=== PATIENT | female | born 1955 | race Caucasian/White ===

== ENCOUNTER 2020-06-02 12:23 | Outpatient (REF) | payer MEDICARE, SELFPAY ==
--- NOTE | 2020-06-02 | MM_ITS ---
EXAMINATION: MM SCREENING DIGITAL BREAST TOMOSYNTHESIS, BILATERAL CLINICAL INFORMATION: Screening. Asymptomatic. The lifetime risk of breast cancer based on the Tyrer-Cuzick Model is 11%. COMPARISON: Mammography: 12/07/2018, 11/23/2017, 11/10/2016, 11/01/2015 TECHNIQUE: Digital breast tomosynthesis is performed in both the craniocaudal and mediolateral oblique views along with computer-aided detection (CAD). Synthesized 2D images are generated from the tomosynthesis. FINDINGS: There are scattered areas of fibroglandular density (ACR BI-RADS breast composition Category b). There are no significant masses, abnormal calcifications, or other abnormalities. The axilla and skin contours are unremarkable. MM/MM tomosynthesis screening BI IMPRESSION: No mammographic evidence of malignancy. ASSESSMENT: BI-RADS 1: Negative RECOMMENDATION: Routine annual mammography screening. This patient's information was entered into a reminder system with a target due date for their next mammogram.
== END 2020-06-02 12:24 | disposition home or self-care (01) ==
LOC: HO.MAMMO 12:23
PROVIDERS: Visit Provider Internal Medicine
DX: Z12.31 Encounter for screening mammogram for malignant neoplasm of breast (principal)
CPT/HCPCS: 77063; 77067

== ENCOUNTER 2020-07-08 06:37 | Outpatient (REF) | payer MEDICARE, SELFPAY ==
[2020-07-08 11:41] LABS: Hematocrit 41.2 % (37-47); Hemoglobin 13.1 g/dl (12.0-16.0); Mean Corpuscular HGB Conc 31.8 g/dl (31.0-35.0); Mean Corpuscular Hemoglobin 30.8 pg (27.0-33.0); Mean Corpuscular Volume 96.9 fL (80-98); Mean Platelet Volume 12.6 fL (9.4-12.3); Platelet Count 202 X10*3/uL (160-400); Red Blood Count 4.25 X10*6/uL (4.20-5.50); Red Cell Distribution Width 11.9 % (11.0-16.0); White Blood Count 4.6 X10*3/uL (4.8-10.8)
[2020-07-08 12:15] LABS: Free T4 (Free Thyroxine) 1.03 ng/dL (0.71-1.85); Thyroid Stimulating Hormone 0.86 uIU/mL (0.32-4.0); Vitamin D 25-OH Total 59.3 ng/mL (>30)
[2020-07-08 12:17] LABS: Alanine Aminotransferase 11 U/L (0-31); Anion Gap 12 (12-20); Aspartate Amino Transferase 17 U/L (5-31); Blood Urea Nitrogen 15 mg/dL (9-16); Calcium 8.5 mg/dL (8.4-10.2); Carbon Dioxide 28 mmol/L (22-29); Chloride 106 mmol/L (96-108); Cholesterol 177 mg/dL; Estimated Glomerular Filt Rate > 60; Glucose Fasting 78 mg/dL (60-99); HDL Cholesterol 70 mg/dL; LDL Cholesterol Calculated 98 mg/dl; Potassium 3.7 mmol/L (3.3-5.1); Sodium 142 mmol/L (135-145); Triglycerides 49 mg/dL
== END 2020-07-08 06:38 | disposition home or self-care (01) ==
LOC: HO.HMGCLDS 06:37
PROVIDERS: PCP Internal Medicine; Visit Provider Internal Medicine
DX: E78.5 Hyperlipidemia, unspecified (principal); E03.9 Hypothyroidism, unspecified; J30.9 Allergic rhinitis, unspecified; M81.0 Age-related osteoporosis without current pathological fracture; Z78.0 Asymptomatic menopausal state
CPT/HCPCS: 36415; 80048; 80061; 82306; 84439; 84443; 84450; 84460; 85027

== ENCOUNTER 2020-07-22 13:35 | Outpatient (REF) | payer MEDICARE, SELFPAY ==
--- NOTE | ~2020-07-22 | US_ITS ---
EXAMINATION: US THYROID CLINICAL INFORMATION: Hypothyroidism. COMPARISON: None TECHNIQUE: Linear transducer grayscale and color Doppler examination with attention to the region of the thyroid. FINDINGS: SIZE: Measurements of the thyroid lobes and nodules are given in sagittal, anteroposterior and transverse dimensions respectively. Right Thyroid Lobe: 3.3 x 1.1 x 0.8 cm, volume 1.5 mL. Parenchyma: The gland echotexture is homogeneous. Thyroid vascularity is normal. Left Thyroid Lobe: 3.1 x 1.1 x 1.0 cm, volume 1.8 mL. Parenchyma: The gland echotexture is homogeneous. Thyroid vascularity is normal. Isthmus: 0.1 cm in maximum AP dimension. Estimated total number of nodules greater than or equal to 1 cm: 0. No focal thyroid nodule is seen. NODES: No lymphadenopathy is seen in the tissue surrounding the thyroid gland. US/US thyroid IMPRESSION: Small thyroid gland. No nodule or adenopathy is seen.
== END 2020-07-22 13:36 | disposition home or self-care (01) ==
LOC: HO.HMGCX 13:35
PROVIDERS: Visit Provider Internal Medicine
DX: E03.9 Hypothyroidism, unspecified (principal)
CPT/HCPCS: 76536

== ENCOUNTER 2021-01-29 06:22 | Outpatient (REF) | payer MEDICARE, SELFPAY ==
[2021-01-29 12:04] LABS: Alanine Aminotransferase 13 U/L (0-31); Anion Gap 10 (12-20); Aspartate Amino Transferase 17 U/L (5-31); Blood Urea Nitrogen 17 mg/dL (9-16); Calcium 8.7 mg/dL (8.4-10.2); Carbon Dioxide 28 mmol/L (22-29); Chloride 108 mmol/L (96-108); Cholesterol 189 mg/dL; Estimated Glomerular Filt Rate > 60; Glucose Fasting 84 mg/dL (60-99); HDL Cholesterol 75 mg/dL; LDL Cholesterol Calculated 108 mg/dl; Potassium 4.5 mmol/L (3.3-5.1); Sodium 141 mmol/L (135-145); Triglycerides 33 mg/dL
[2021-01-29 12:15] LABS: Free T4 (Free Thyroxine) 1.05 ng/dL (0.71-1.85); Thyroid Stimulating Hormone 0.85 uIU/mL (0.32-4.0); Vitamin D 25-OH Total 44.6 ng/mL (>30)
== END 2021-01-29 06:23 | disposition home or self-care (01) ==
LOC: HO.HMGCLDS 06:22
PROVIDERS: PCP Internal Medicine; Visit Provider Internal Medicine
DX: E03.9 Hypothyroidism, unspecified (principal); E78.5 Hyperlipidemia, unspecified; M81.0 Age-related osteoporosis without current pathological fracture; R73.01 Impaired fasting glucose; I10 Essential (primary) hypertension; Z78.0 Asymptomatic menopausal state
CPT/HCPCS: 36415; 80048; 80061; 82306; 84439; 84443; 84450; 84460

== ENCOUNTER 2021-04-21 07:55 | Outpatient (REF) | payer MEDICARE, SELFPAY ==
--- NOTE | ~2021-04-21 | MM_ITS ---
EXAMINATION: BONE DENSITOMETRY CLINICAL INDICATION: Osteoporosis. COMPARISON: Previous BD dated 04/20/2019 and baseline BD dated 11/28/2006. TECHNIQUE: Using a [employer] DXA System (software version: 13.1) manufactured by [employer], dual-energy x-ray absorptiometry was performed of the lumbar spine and left hip. The images are of good technical quality. Summary results are attached. FINDINGS: AP SPINE L1-L4: Current: BMD 1.061 g/cm2, Z-score 0.9, T-score -1.0, normal, 6.0% increase from previous, 15.1% decrease from baseline (<5% change is not significant). Prior: BMD 1.001 g/cm2. Baseline: BMD 1.249 g/cm2. LEFT FEMUR, NECK: Current: BMD 0.810 g/cm2, Z-score 0.1, T-score -1.6, osteopenia. Prior: BMD 0.678 g/cm2. Baseline: BMD 0.971 g/cm2. LEFT FEMUR, TOTAL: Current: BMD 0.860 g/cm2, Z-score 0.4, T-score -1.2, osteopenia, 18.1% increase from previous, 15.6% decrease from baseline (<5% change is not significant). Prior: BMD 0.728 g/cm2. Baseline: BMD 1.019 g/cm2. IDENTIFIED RISK FACTORS: Menopause, osteoporosis, rheumatoid arthritis. HISTORY OF FRACTURE: None listed. MEDICATIONS: Calcium, vitamin D, bisphosphonate. MM/XR DEXA axial skeleton IMPRESSION: 1. DIAGNOSIS: Osteopenia based on the lowest T-score value of -1.6 in the femoral neck applying World Health Organization criteria. 2. 10-YEAR FRACTURE RISK PREDICTION, FRAX: Major osteoporotic fracture (clinical spine, forearm, hip or shoulder) 13.1%. Hip fracture 2.0%. 3. Treatment Recommendations: NOF guidelines recommend consideration for treatment in postmenopausal women and men age 50 and older presenting with the following: -A hip or vertebral (clinical or morphometric) fracture. -T-score less than or equal to -2.5 at the femoral neck or spine after appropriate evaluation to exclude secondary causes. -Low bone mass at the hip or spine and a 10-year fracture probability by FRAX of greater than or equal to 3% for hip fracture or greater than or equal to 20% for major osteoporotic fracture based on the [place] adapted WHO algorithm. 4. Other Recommendations: All treatment decisions require clinical judgment and consideration of individual patient factors, including patient preferences, comorbidities, previous drug use, risk factors not captured in the FRAX model (e.g. frailty, falls, vitamin D deficiency, increased bone turnover, interval significant decline in bone density) and possible under or overestimation of fracture risk by FRAX. Additional medical evaluation for secondary cause of low bone mineral density may be appropriate. FUTURE SCAN RECOMMENDATION: People with diagnosed cases of osteoporosis or at high risk for fracture should have regular bone mineral density tests. For patients eligible for Medicare, routine testing is allowed once every 2 years. The testing frequency can be increased to one year for patients who have rapidly progressing disease, those who are receiving or discontinuing medical therapy to restore bone mass, or have additional risk factors.
== END 2021-04-21 07:56 | disposition home or self-care (01) ==
LOC: HO.MAMMO 07:55
PROVIDERS: Visit Provider Internal Medicine
DX: Z13.820 Encounter for screening for osteoporosis (principal); M81.0 Age-related osteoporosis without current pathological fracture; M85.80 Other specified disorders of bone density and structure, unspecified site; Z78.0 Asymptomatic menopausal state; Z79.899 Other long term (current) drug therapy
CPT/HCPCS: 77080

== ENCOUNTER 2021-05-04 09:49 | Outpatient (REF) | payer MEDICARE, SELFPAY | END 2021-05-04 09:50 | disposition home or self-care (01) | LOC: HO.HMGCLDS 09:49 | PROVIDERS: Visit Provider Internal Medicine | DX: Z20.822 Contact with and (suspected) exposure to COVID-19 (principal) | CPT/HCPCS: C9803; U0003; U0005 ==

== ENCOUNTER 2021-05-26 13:44 | Outpatient (REF) | payer MEDICARE, SELFPAY ==
--- NOTE | ~2021-05-26 | MM_ITS ---
EXAMINATION: MM SCREENING DIGITAL BREAST TOMOSYNTHESIS, BILATERAL CLINICAL INFORMATION: Screening. Asymptomatic. The lifetime risk of breast cancer based on the Tyrer-Cuzick Model is 9%. COMPARISON: Mammography: 06/02/2020, 12/07/2018, 11/23/2017 TECHNIQUE: Digital breast tomosynthesis is performed in both the craniocaudal and mediolateral oblique views along with computer-aided detection (CAD). Synthesized 2D images are generated from the tomosynthesis. FINDINGS: There are scattered areas of fibroglandular density (ACR BI-RADS breast composition Category b). There are no significant masses, abnormal calcifications, or other abnormalities. Parenchymal pattern is similar to prior studies. There is no developing density or architectural abnormality. The axilla and skin contours are unremarkable. No significant changes. MM/MM tomosynthesis screening BI IMPRESSION: No mammographic evidence of malignancy. ASSESSMENT: BI-RADS 1: Negative RECOMMENDATION: Routine annual mammography screening. This patient's information was entered into a reminder system with a target due date for their next mammogram.
== END 2021-05-26 13:45 | disposition home or self-care (01) ==
LOC: HO.MAMMO 13:44
PROVIDERS: Visit Provider Internal Medicine
DX: Z12.31 Encounter for screening mammogram for malignant neoplasm of breast (principal)
CPT/HCPCS: 77063; 77067

== ENCOUNTER 2021-07-15 06:25 | Outpatient (REF) | payer MEDICARE, SELFPAY ==
[2021-07-15 11:55] LABS: Alanine Aminotransferase 23 U/L (0-31); Anion Gap 11 (12-20); Aspartate Amino Transferase 23 U/L (5-31); Blood Urea Nitrogen 13 mg/dL (9-16); Carbon Dioxide 30 mmol/L (22-29); Chloride 104 mmol/L (96-108); Cholesterol 197 mg/dL; Estimated Glomerular Filt Rate > 60; Glucose Fasting 83 mg/dL (60-99); HDL Cholesterol 80 mg/dL; LDL Cholesterol Calculated 108 mg/dl; Potassium 4.7 mmol/L (3.3-5.1); Sodium 140 mmol/L (135-145); Triglycerides 46 mg/dL
[2021-07-15 12:16] LABS: Free T4 (Free Thyroxine) 1.13 ng/dL (0.71-1.85); Thyroid Stimulating Hormone 1.19 uIU/mL (0.32-4.0); Vitamin D 25-OH Total 56.8 ng/mL (>30)
== END 2021-07-15 06:26 | disposition home or self-care (01) ==
LOC: HO.HMGCLDS 06:25
PROVIDERS: Visit Provider Internal Medicine
DX: E03.9 Hypothyroidism, unspecified (principal); E78.5 Hyperlipidemia, unspecified; I10 Essential (primary) hypertension; M81.0 Age-related osteoporosis without current pathological fracture; R73.01 Impaired fasting glucose; Z78.0 Asymptomatic menopausal state
CPT/HCPCS: 36415; 80048; 80061; 82306; 84439; 84443; 84450; 84460

== ENCOUNTER 2022-03-04 06:27 | Outpatient (REF) | payer MEDICARE, SELFPAY ==
[2022-03-04 11:49] LABS: Alanine Aminotransferase 23 U/L (0-31); Aspartate Amino Transferase 26 U/L (5-31); Cholesterol 200 mg/dL; HDL Cholesterol 82 mg/dL; LDL Cholesterol Calculated 112 mg/dl; Thyroid Stimulating Hormone 0.88 uIU/mL (0.32-4.0); Triglycerides 34 mg/dL; Vitamin D 25-OH Total 44.4 ng/mL (>30)
== END 2022-03-04 06:28 | disposition home or self-care (01) ==
LOC: HO.HMGCLDS 06:27
PROVIDERS: PCP Internal Medicine; Visit Provider Internal Medicine
DX: E03.9 Hypothyroidism, unspecified (principal); E78.5 Hyperlipidemia, unspecified; M81.0 Age-related osteoporosis without current pathological fracture; N95.9 Unspecified menopausal and perimenopausal disorder; Z78.0 Asymptomatic menopausal state
CPT/HCPCS: 36415; 80061; 82306; 84439; 84443; 84450; 84460

== ENCOUNTER 2022-03-29 14:55 | Outpatient (REF) | payer MEDICARE, SELFPAY ==
--- NOTE | ~2022-03-29 | US_ITS ---
EXAMINATION: US EXTRACRANIAL CAROTID DUPLEX, BILATERAL CLINICAL INFORMATION: Syncope COMPARISON: None TECHNIQUE: Real-time ultrasound and Doppler techniques (integrating B-mode 2-D vascular images, Doppler spectral analysis and color-flow Doppler imaging) were utilized to interrogate the extracranial carotid arteries, the vertebral arteries and proximal subclavian arteries bilaterally. The degree of stenosis is determined by criteria similar to NASCET. FINDINGS: Right Side: 1. There is soft atherosclerotic plaque seen in the bifurcation/proximal ICA region. 2. The common carotid artery PSV proximally is 89.6 cm/s and distally 88.8 cm/s. 3. The proximal internal carotid artery velocities are 81 1 cm/s systolic and 27.6 cm/s diastolic. 4. The proximal external carotid artery PSV is 73.9 cm/s. 5. The vertebral artery shows antegrade flow. 6. The subclavian artery waveforms are normal. Left Side: 1. There is soft atherosclerotic plaque seen in the bifurcation/proximal ICA region. 2. The common carotid artery PSV proximally is 96.2 cm/s and distally 84.4 cm/s. 3. The proximal internal carotid artery velocities are 95 cm/s systolic and 27 cm/s diastolic. 4. The proximal external carotid artery PSV is 87.3 cm/s. 5. The vertebral artery shows antegrade flow. 6. The subclavian artery waveforms are normal. US/US carotid duplex BI IMPRESSION: 1. RIGHT: No hemodynamically significant stenosis. 1. LEFT: No hemodynamically significant stenosis. 2. Normal antegrade flow seen in both vertebral arteries.
== END 2022-03-29 14:56 | disposition home or self-care (01) ==
LOC: HO.HMGCX 14:55
PROVIDERS: PCP Internal Medicine; Visit Provider Internal Medicine
DX: R55 Syncope and collapse (principal)
CPT/HCPCS: 93880

== ENCOUNTER → 2022-05-12 13:09 | Outpatient (BNVA) | payer MEDICARE, SELFPAY | PROVIDERS: PCP Internal Medicine; Referring Provider Internal Medicine; Visit Provider Internal Medicine | DX: R55 Syncope and collapse (principal); I95.9 Hypotension, unspecified | CPT/HCPCS: 99202 ==

== ENCOUNTER → 2022-05-19 08:58 | Outpatient (REF) | payer MEDICARE, SELFPAY ==
--- NOTE | 2022-05-19 09:01 | CA_ITS ---
Transthoracic Echocardiogram Patient (Last, First, Middle): Candy Turpin M Gender: Female Date of : 1955 Age: 67 Procedure Date: 05/19/2022 Procedure Type: Transthoracic Echocardiogram Location: OP Height: 152.4 cm Weight: 57.61 kg BSA: 1.54 m2 Heart Rate: bpm BP: 122 / 60 mmHg Personal Care Worker: Referring MD: Tom Griffin MD Hose Stripper: Aguilar Sue MD Symptoms: I95.9 - Hypotension, unspecified Study Quality: Adequate ECG Rhythm: Sinus Conclusions: - Normal study Findings Left Ventricle Normal left ventricular size, thickness, and systolic function. The visually estimated ejection fraction is between 60-65%. Spectral Doppler is indicative of a normal filling pattern. Right Ventricle Normal right ventricular cavity size and systolic function. Atria Both atria are normal in size. There is lipomatous hypertrophy of the interatrial septum. There is no evidence of interatrial shunt. Aortic Valve Normal aortic valve structure and function. There is no aortic valve stenosis. There is no aortic valve regurgitation. Mitral Valve Normal mitral valve structure and function. There is trace mitral valve regurgitation. There is no mitral valve stenosis. Pulmonic Valve The pulmonic valve is likely normal. There is trace to mild pulmonic valve regurgitation. Tricuspid Valve Normal tricuspid valve structure. There is trace tricuspid valve regurgitation. The right ventricular systolic pressure is normal. The right ventricular systolic pressure is 22 mmHg. Normal right atrial pressure. There is no evidence of pulmonary hypertension. Great Vessels All visible segments of the aorta are normal in size. The pulmonary artery was not well visualized. Venous The inferior vena cava is normal in size and collapses greater than 50% with inspiration. Pericardium/Pleural There is no evidence of pericardial effusion. Prior Study Comparison No prior study available for comparison. Measurements 2D Linear Measurements IVSd: 0.73 0.6-0.9/0.6-1.0 cm LVIDd: 3.71 3.9-5.3/4.2-5.9 cm LVIDd Index: 2.41 2.4-3.2/2.2-3.1 cm/m2 LVIDs: 2.33 2.0-3.6 cm LVPWd: 0.77 0.7-1.1 cm Ao Root: 2.90 2.1-3.5 cm LA Diam: 2.10 2.7-3.8/3.0-4.0 cm LAIDs Index: 1.36 1.5-2.3 cm/m2 LV Mass: 93.97 67-162/88-224 g LV Mass Index: 61.02 43-95/49-115 g/m2 LVOT Diam: 1.90 3.0+(-)1.3 cm 2D Systolic Function EF 4C: 60.90 >55% EF 2C: 64.80 >55% EF BiP: 63.90 >55% Mitral Valve MV Pk E: 1.01 MV PK A: 0.87 MV Decel Time: 183.00 E/A: 1.20 E'Lateral: 8.16 E'Medial: 7.72 E/E' Med: 13.10 E/E' Lat: 12.40 PHT: 54.00 MVA PHT: 4.07 Decel [place]: 5.54 Aortic Valve AoV Pk Vincent: 1.43 AoV Mn Vincent: 0.87 AoV VTI: 0.36 AoV Pk Grad: 8.00 Aov Mn Grad: 4.00 PHILOMENA Cont.VTI: 1.37 LVOT LVOT Pk Vincent: 0.80 LVOT Mn Vincent: 0.46 LVOT VTI: 0.17 LVOT Pk Grad: 3.00 LVOT Mn Grad: 1.00 LVOT Diam: 1.90 LVOT Area: 2.84 Diastolic Function MV Pk E: 1.01 MV Pk A: 0.87 E/A: 1.20 E'Medial: 7.72 E/E' Med: 13.10 E' Laterial: 8.16 E/E' Lat: 12.40 Right Ventricle TAPSE (mm): 26.00 TVS' Vincent: 10.00 Tricuspid Valve TR Pk Vincent: 2.20 TR Pk Grad: 19.00 RA Press: 3.00 RVSP: 22.00 Great Vessels Aorta Ao Root-2D: 2.90 2.0-3.7 cm Ao Asc: 2.90 2.1-3.4 cm Pulmonary Valve PV Pk Vincent: 0.93 Peak PV Grad: 3.00 Updated in Other Vendor System with Status of Final Aguilar Sue MD electronically signed on 05/19/2022 2:28:48 PM with status of Final
== END ==
LOC: HO.CARD 08:58
PROVIDERS: PCP Internal Medicine; Visit Provider Internal Medicine
DX: I95.9 Hypotension, unspecified (principal); R55 Syncope and collapse
CPT/HCPCS: 93306

== ENCOUNTER 2022-05-28 07:19 | Outpatient (REF) | payer MEDICARE, SELFPAY ==
--- NOTE | ~2022-05-28 | MM_ITS ---
EXAMINATION: MM SCREENING DIGITAL BREAST TOMOSYNTHESIS, BILATERAL CLINICAL INFORMATION: Screening. Asymptomatic. The lifetime risk of breast cancer based on the Tyrer-Cuzick Model is 9%. COMPARISON: Mammography: 05/26/2021, 06/02/2020, 12/07/2018 TECHNIQUE: Digital breast tomosynthesis is performed in both the craniocaudal and mediolateral oblique views along with computer-aided detection (CAD). Synthesized 2D images are generated from the tomosynthesis. FINDINGS: There are scattered areas of fibroglandular density (ACR BI-RADS breast composition Category b). There are no significant masses, abnormal calcifications, or other abnormalities. Parenchymal pattern is similar to prior studies. There is no developing density or architectural abnormality. The axilla and skin contours are unremarkable. No significant changes. MM/MM tomosynthesis screening BI IMPRESSION: No mammographic evidence of malignancy. ASSESSMENT: BI-RADS 1: Negative RECOMMENDATION: Routine annual mammography screening. This patient's information was entered into a reminder system with a target due date for their next mammogram.
== END 2022-05-28 07:20 | disposition home or self-care (01) ==
LOC: HO.MAMMO 07:19
PROVIDERS: PCP Internal Medicine; Visit Provider Internal Medicine
DX: Z12.31 Encounter for screening mammogram for malignant neoplasm of breast (principal)
CPT/HCPCS: 77063; 77067

== ENCOUNTER 2022-06-09 06:23 | Outpatient (REF) | payer MEDICARE, SELFPAY ==
[2022-06-09 12:38] LABS: Alanine Aminotransferase 27 U/L (0-31); Anion Gap 10 (12-20); Aspartate Amino Transferase 28 U/L (5-31); Blood Urea Nitrogen 15 mg/dL (9-16); Calcium 9.1 mg/dL (8.4-10.2); Carbon Dioxide 31 mmol/L (22-29); Chloride 106 mmol/L (96-108); Cholesterol 207 mg/dL; Estimated Glomerular Filt Rate > 60; Free T4 (Free Thyroxine) 1.17 ng/dL (0.71-1.85); Glucose Fasting 86 mg/dL (60-99); HDL Cholesterol 80 mg/dL; LDL Cholesterol Calculated 120 mg/dl; Potassium 4.3 mmol/L (3.3-5.1); Sodium 143 mmol/L (135-145); Thyroid Stimulating Hormone 1.25 uIU/mL (0.32-4.0); Triglycerides 38 mg/dL; Vitamin D 25-OH Total 47.8 ng/mL (>30)
== END 2022-06-09 06:24 | disposition home or self-care (01) ==
LOC: HO.HMGCLDS 06:23
PROVIDERS: PCP Internal Medicine; Visit Provider Internal Medicine
DX: M81.0 Age-related osteoporosis without current pathological fracture (principal); R73.01 Impaired fasting glucose; E78.5 Hyperlipidemia, unspecified; E03.9 Hypothyroidism, unspecified; Z78.0 Asymptomatic menopausal state
CPT/HCPCS: 36415; 80048; 80061; 82306; 84439; 84443; 84450; 84460

== ENCOUNTER → 2022-09-07 09:40 | Outpatient (BNVA) | payer MEDICARE, SELFPAY | PROVIDERS: PCP Internal Medicine; Visit Provider Internal Medicine | DX: I95.1 Orthostatic hypotension (principal); R42 Dizziness and giddiness; R29.6 Repeated falls | CPT/HCPCS: 99212 ==

== ENCOUNTER 2022-09-30 11:46 | Outpatient (REF) | payer SELFPAY ==
--- NOTE | 2022-09-30 12:34 | MHC.AU.HFU ---
Hearing Instrument Follow-Up- Binaural Date of Visit: 09/30/22 Right Ear: Phonak Virto [id number], SN: [id number], pink Repair Warranty: 04/21/2021 Loss and Damage Warranty: 04/21/2021 Battery Size: 13 Type of Wax Guard: cerustop Dispensed By: [facility] Date of Fittin03/29/2018 Left Ear: Phonak Virto B50-13, SN: [id number], pink Repair Warranty: 04/21/2021 Loss and Damage Warranty: 04/21/2021 Battery Size: 13 Type of Wax Guard: cerustop Dispensed By: [facility] Date of Fittin03/29/2018 Follow-Up Summary: The patient is here for a hearing aid check as she reports her left hearing aid made a pop sound and stopped working approximately 2 weeks ago. She has been using her back up left FS ITE hearing aid with her existing right FS ITE hearing aid. She would like her current pair and her back up left aid checked and cleaned. Otoscopy reveals significant, though non-occluding, cerumen in the left ear canal. Right ear canal is clear. Visual inspection of the hearing aids reveal debris in the wax guards and vent. I changed all wax guards and threaded all vents. Brushed and wiped the microphone ports on all aids. Listening check reveals all aids are amplifying clearly. I recommended cerumen removal. The patient usually goes to Dr. Rubi's office for this so she schedule it there. I also recommend an updated audiogram as her previous is from 2019. She will see her PCP in December and request an order be faxed. The patient reported good sound bilaterally and was happy with today's visit. She paid $50 for the cleaning. Diagnosis Code(s): Primary Diagnosis: H90.A32 Mixed HL, Unilateral, Left Ear, W/Restricted Contralateral Secondary Diagnosis: H90.A21 SNHL, Unilateral Right Ear, W/Restricted Contralateral Hearing Signature: Provider: William Sandhu, [facility]
== END 2022-09-30 11:47 | disposition home or self-care (01) ==
LOC: HO.HAP 11:46
PROVIDERS: Visit Provider Internal Medicine
DX: Z46.1 Encounter for fitting and adjustment of hearing aid (principal); H90.A32 Mixed conductive and sensorineural hearing loss, unilateral, left ear with restricted hearing on the contralateral side; H90.A21 Sensorineural hearing loss, unilateral, right ear, with restricted hearing on the contralateral side
CPT/HCPCS: 92593

== ENCOUNTER 2022-12-08 06:24 | Outpatient (REF) | payer MEDICARE, SELFPAY ==
[2022-12-08 12:16] LABS: Alanine Aminotransferase 17 U/L (0-31); Anion Gap 13 (12-20); Aspartate Amino Transferase 19 U/L (5-31); Blood Urea Nitrogen 13 mg/dL (9-16); Calcium 9.1 mg/dL (8.4-10.2); Carbon Dioxide 28 mmol/L (22-29); Chloride 106 mmol/L (96-108); Cholesterol 185 mg/dL; Estimated Glomerular Filt Rate > 60; Glucose Fasting 84 mg/dL (60-99); HDL Cholesterol 69 mg/dL; LDL Cholesterol Calculated 107 mg/dl; Potassium 4.4 mmol/L (3.3-5.1); Sodium 143 mmol/L (135-145); Triglycerides 45 mg/dL
[2022-12-08 12:32] LABS: Free T4 (Free Thyroxine) 0.95 ng/dL (0.71-1.85); Thyroid Stimulating Hormone 0.99 uIU/mL (0.32-4.0); Vitamin D 25-OH Total 77.1 ng/mL (>30)
== END 2022-12-08 06:25 | disposition home or self-care (01) ==
LOC: HO.HMGCLDS 06:24
PROVIDERS: PCP Internal Medicine; Visit Provider Internal Medicine
DX: E03.9 Hypothyroidism, unspecified (principal); M81.0 Age-related osteoporosis without current pathological fracture; R73.01 Impaired fasting glucose; E78.5 Hyperlipidemia, unspecified
CPT/HCPCS: 36415; 80048; 80061; 82306; 84439; 84443; 84450; 84460

== ENCOUNTER 2022-12-15 09:16 | Outpatient (AMB) | payer MEDICARE, SELFPAY ==
--- NOTE | 2022-12-15 09:18 | MHC.PC.OV ---
Vital Signs 12/15/22 09:35 Height 5 ft Weight 127 lb BMI 24.8 BP 112/64 Blood Pressure Location Lt brachial Position Sitting Pulse 77 Pulse Source Pulse Oximeter Pulse Oximetry (%) 99 Oxygen Delivery Method Room Air Intake Visit Reasons: 6 Month follow up Intake Note: Pt is here today for her 6 months f/u Allergies Chocolate Allergy (Unknown, Verified 12/15/22 09:48) Hives Penicillins [PENICILLINS] Allergy (Unknown, Verified 12/15/22 09:48) RASH Medication List - Last Reconciled 12/15/22 by Jina Lopez MD alendronate 70 mg PO QWEEK 90 days ascorbate calcium (vitamin C) 500 mg PO DAILY calcium carbonate 600 mg PO DAILY cholecalciferol (vitamin D3) 25 mcg PO DAILY fluticasone propionate 50 mcg/actuation (Flonase Allergy Relief) 1 spray intranasal DAILY folic acid 0.4 mg PO DAILY glucosamine HCl 1,000 mg (2 x 500 mg) PO DAILY levothyroxine 75 mcg PO .Every other morning levothyroxine 50 mcg PO .Every other morning loratadine 10 mg PO DAILY methylcellulose (laxative) (Citrucel) 500 mg PO DAILY midodrine 5 mg PO TID 90 days simvastatin 10 mg PO Q OTHER DAY sodium chloride 0.65% (Saline Mist) 1 spray intranasal BID PRN Tobacco use date assessed: 12/15/22 Fall risk assessment: No Falls in past year Last assessed Fall Risk: 12/15/22 Dental Screening Dental Screen Date: 12/15/22 Did you have a dental visit in the last 12 months?: Yes Did you have a dental problem in the last 6 months where you did not have access to dental care?: Yes Was dental information given to patient?: Patient has dentist HPI 6 Month follow up HPI Details 67-year-old lady with history of osteoporosis no with osteopenia of left femoral neck currently on alendronate, started April 2019 , hypothyroidism, IBS bilateral hearing loss, impaired fasting glucose, dyslipidemia acquired hypothyroidism, here today for her follow-up. She has been feeling well, had a tilt-table test done at [facility] May 2022 which showed appropriate response of blood pressure went table tilted to 70 degrees, advised to stay well-hydrated. She was seen by Dr. Griffin and started on midodrine for her hypotension. States that she feels much better on medication, and has more energy, has not had any syncopal attacks since starting the medication. She had recent fasting labs done which showed normal electrolytes, renal function, fasting glucose, lipids, thyroid levels and vitamin-D levels. She had screening colonoscopy done by Dr. Li in 2020 with benign findings, per patient [facility] Medical History (Updated 12/15/22 @ 09:56 by Jina Lopez MD) Acquired hypothyroidism Dyslipidemia Encounter for monitoring alendronate therapy Hearing loss, bilateral Hx of syncope Impaired fasting glucose Irritable bowel syndrome Osteopenia of left femoral neck Osteoporosis Palpable thyroid Postmenopause Recurrent syncope Seasonal allergic rhinitis Surgical History History of colonoscopy Family History Mother Breast cancer CAD (coronary artery disease) CVD (cardiovascular disease) Father Medical history non-contributory Brother No problems noted. Social History Housing: House Alcohol intake: never Patient Tobacco Use Status: Never used Tobacco e-Cigarette/Vaping Use: Never Used Current occupational status: retired Cognitive needs: No Hearing needs: Yes Vision needs: Yes Questionnaire PHQ-9 Over the last 2 weeks, how often have you been bothered by any of the following problems? 1. Little interest or pleasure in doing things: not at all 2. Feeling down, depressed, or hopeless: not at all 3. Trouble falling or staying asleep, or sleeping too much: not at all 4. Feeling tired or having little energy: not at all 5. Poor appetite or overeating: not at all 6. Feeling bad about yourself - or that you are a failure or have let yourself or your family down: not at all 7. Trouble concentrating on things, such as reading the newspaper or watching television: not at all 8. Moving or speaking so slowly that other people could have noticed. Or the opposite - being so fidgety or restless that you have been moving around a lot more than usual: not at all 9. Thoughts that you would be better off or of hurting yourself in some way: not at all Total score: 0 Depression Screening Interpretation: Negative 82729 - PHQ-9 Billing: Yes Source: Developed by Drs. Devon Whitten, Monica Blue, Kane Ch and colleagues, with an educational jerman from [employer]. Thrive Questionnaire Date Thrive assessed: 12/15/22 I am a: Patient What is your living situation today?: I have a steady place to live Within the past 12 months, did the food you bought not last and you didn't have the money to get more?: Never true Within the past 12 months, did you worry whether your food would run out before you got money to buy more?: Never true Do you have trouble paying for medicines?: No Do you have trouble getting transportation to medical appointments?: No Do you have trouble paying your heating and electricity bill?: No Do you have trouble taking care of your child, family member or friend?: No Do you have trouble with day-to-day activities such as bathing, preparing meals, shopping, managing finances, etc.?: No Are you currently unemployed and looking for a job?: No Are you interested in more education?: No AUDIT C Alcohol Use Questionnaire (AUDIT-C) 1. How often do you have a drink containing alcohol?: Never Total Score: 0 KITTY-7 AMB Questionnaire KITTY-7 Date KITTY - 7 assessed: 12/15/22 Feeling nervous, anxious, or on edge: 0 = Not at all Not being able to stop or control worryin = Not at all Worrying too much about different things: 0 = Not at all Trouble relaxin = Not at all Being so restless that it is hard to sit still: 0 = Not at all Becoming easily annoyed or irritable: 0 = Not at all Feeling afraid as if something awful might happen: 0 = Not at all Total KITTY-7 score (0-4 normal; 5-9 mild; 10-14 moderate; 15-21 severe): 0 Source: Developed by Drs. Devon Whitten, Kane Bran and colleagues, with an educational jerman from [employer]. KITTY-7 Assessment Billing KITTY-7 Assessment Tool: KITTY-7 Assessment 98620 Review of Systems Const Denies weakness Eyes Details: Sees Dr. Owens, scheduled for cataract surgery February 2023 ENT Denies dizziness Card Denies chest pain, Denies chest pain with activity, Denies syncope, Denies rapid heart rate, Denies pedal edema, Denies leg edema, Denies lightheadedness, Denies palpitations, Denies dyspnea, Denies dyspnea on exertion and Denies orthopnea Resp Denies cough, Denies dyspnea and Denies dyspnea on exertion GI Denies hematochezia and Denies change in stool character Reports no additional complaints Musc Denies abnormal gait, Denies muscle cramps, Denies muscle weakness, Denies numbness, Denies radiating pain into limb and Denies tingling Neuro Denies Abnormal speech present, Denies abnormal gait, Denies dizziness, Denies syncope, Denies numbness, Denies tingling and Denies weakness Psych Reports no additional complaints Endo Denies palpitations Kaveh/Lymph Reports no additional complaints Physical exam (Primary Care) Vital Signs: Last Vital Signs Pulse 77 12/15/22 09:35 BP 112/64 12/15/22 09:35 Pulse Ox 99 12/15/22 09:35 Oxygen Delivery Method Room Air 12/15/22 09:35 BMI result Body Mass Index 24.8 Tobacco/Smoking Status: Tobacco use Status Tobacco use date assessed 12/15/22 12/15/22 09:19 Patient Tobacco Use Status Never used Tobacco 12/15/22 09:19 e-Cigarette/Vaping Use Never Used 12/15/22 09:19 PHQ-9: PHQ-9 Score PHQ-9: Total score 0 12/15/22 09:49 Depression Screening Interpretation: Negative Thrive Assessment: Date of Thrive Assessment Date Thrive assessed 12/15/22 12/15/22 09:41 Const Other: Alert oriented x3, no acute cardiorespiratory distress noted, ambulatory with normal gait Orientation/consciousness: patient oriented x3 HENMS Ears: hearing grossly impaired bilaterally (Wears hearing aids) General nose exam: Normal external nose present Face and sinus: Yes face symmetric Mouth: Normal oral and palatal mucosa present, oropharynx normal and moist mucous membranes Eyes General: appearance normal, both eyes and all related structures Neck Neck: Yes full ROM, Yes no lymphadenopathy, Yes no meningeal signs and Yes supple Thyroid: Thyroid normal Resp Auscultation: clear to auscultation bilaterally Cardio Other: S1-S2 present regular rate and rhythm Bruits: no abdominal aortic bruits GI Inspection: Yes normal to inspection Palpation (GI): No Abdominal aortic bruit present, Soft to palpation, nontender and no guarding Auscultation: normal bowel sounds General: Yes no CVA tenderness Back/Spine/Pelvis Back: no CVA tenderness and No back tenderness Skin General skin exam: no rashes or lesions noted Neuro General: patient oriented x3, gait normal, tone normal, moves all extremities, Normal light touch and pain sensation, no meningeal signs, no focal motor deficits and CN's II-XI intact bilaterally Speech: No Abnormal speech present Extrem General: Yes full ROM, Yes no joint enlargement, Yes no pedal edema and Yes normal gait Results Reviewed Results Reviewed: ENTERED: 12/08/22 CHING ROWAN: ORDERED: Met Prof Fast, AST, ALT, Lipid Panel, Vitamin D 25-OH, Free T4, TSH Test Result Flag Reference Site Sodium 143 135-145 mmol/L Potassium 4.4 3.3-5.1 mmol/L CL 106 96-108 mmol/L CO2 28 22-29 mmol/L Gap 13 12-20 BUN 13 9-16 mg/dL Creat 0.68 0.5-1.4 mg/dL EGFR > 60 NOTE: For -[place] individuals, multiply the result by 1.210. Chronic Kidney Disease: Estimated GFR < 60 mL/min/1.73m2 Severe Kidney Disease: Estimated GFR < 15 mL/min/1.73m2 FBS 84 60-99 mg/dL CA 9.1 8.4-10.2 mg/dL AST (GOT) 19 5-31 U/L ALT (GPT) 17 0-31 U/L Triglyceride 45 mg/dL Desirable Triglyceride: less than 150 mg/dL Borderline High Triglyceride 150-199 mg/dL High Triglyceride: 200-499 mg/dL Very High Triglyceride: greater than or equal to 5OO mg/dL Chol 185 mg/dL Desirable Cholesterol: less than 200 mg/dL Borderline High Cholesterol: 200-239 mg/dL High Cholesterol: greater than 239 mg/dL LDL Calculated 107 mg/dl Desirable LDL: less than 100 mg/dL Near Optimal/Above Optimal LDL: 110-129 mg/dL Borderline High LDL: 130-159 mg/dL High LDL: 160-189 mg/dL Very High LDL: greater than or equal to 190 mg/dL HDL 69 mg/dL Desirable HDL: greater than 40 mg/dL Note: This HDL assay may give artificially low results in patients with liver disease. Vit D 25-OH Tot 77.1 >30 ng/mL Health Based Reference Values* < 20 ng/mL Deficient 20-30 ng/mL Insufficient > 30 ng/mL Sufficient *Cristina GOLDSTEIN. N Engl J Med. 2007;[id number]:266-280 Care must be taken in interpreting Vitamin D results from different laboratories and methodologies. Published data demonstrated that results from patients undergoing hemodialysis may show a negative bias when tested with various automated 25-OH vitamin D assays when compared to LC-MS/MS. When testing samples from patients whose predominant form of Vitamin D is Vitamin D2, such as patients receiving Vitamin D2 supplementation, results that are subtherapeutic should be confirmed with another method such as LC-MS/MS. Free T4 0.95 0.71-1.85 ng/dL TSH 3rd Gen. 0.99 0.32-4.0 uIU/mL TSH 3rd Generation ([facility]) Assessment and Plan Assessment & Plan (1) Osteopenia of left femoral neck: Code(s): M85.852 - Other specified disorders of bone density and structure, left thigh Plan: Continue on alendronate which was started April 2019, repeat another bone density scan May 2022 together with her screening mammogram. Continue taking vitamin-D 3 supplements and take adequate calcium from dietary sources, continue with regular weight-bearing exercises. (2) Encounter for monitoring alendronate therapy: Comment: Started April 2019, to discontinue April 2024 Code(s): Z51.81 - Encounter for therapeutic drug level monitoring; Z79.83 - retirement (current) use of bisphosphonates Plan: Recent vitamin-D level and calcium within normal limits, continued on alendronate (3) Hypotension (arterial): Code(s): I95.9 - Hypotension, unspecified Plan: Improved on midodrine 5 mg taken 1 tablet 3 times a day (4) Impaired fasting glucose: Code(s): R73.01 - Impaired fasting glucose (5) Dyslipidemia: Code(s): E78.5 - Hyperlipidemia, unspecified Plan: Reviewed recent fasting lipid profile with patient with levels within normal limit . Continue with simvastatin 10 mg every other day , in addition to adherence to low-cholesterol diet and regular exercise, at least 30 minutes 3 to 4 times a week. Advised patient to make healthy food choices, eat more fruits, vegetables, whole grains, wild caught fish and low-fat dairy. Limit amount of meat and fried or fatty food products, as well as processed foods and fast foods. Follow-up scheduled with repeat fasting lipid panel in 6 months. 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 Alanine Aminotransferase 6 Months E03.9 - Hypothyroidism, unspecified, E78.5 - Hyperlipidemia, unspecified, I95.9 - Hypotension, unspecified, M85.852 - Other specified disorders of bone density and structure, left thigh, R73.01 - Impaired fasting glucose, Z51.81 - Encounter for therapeutic drug level monitoring, Z78.0 - Asymptomatic menopausal state, 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 Aspartate Amino Transferase 6 Months E03.9 - Hypothyroidism, unspecified, E78.5 - Hyperlipidemia, unspecified, I95.9 - Hypotension, unspecified, M85.852 - Other specified disorders of bone density and structure, left thigh, R73.01 - Impaired fasting glucose, Z51.81 - Encounter for therapeutic drug level monitoring, Z78.0 - Asymptomatic menopausal state, 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 Basic Metabolic Panel Fasting 6 Months E03.9 - Hypothyroidism, unspecified, E78.5 - Hyperlipidemia, unspecified, I95.9 - Hypotension, unspecified, M85.852 - Other specified disorders of bone density and structure, left thigh, R73.01 - Impaired fasting glucose, Z51.81 - Encounter for therapeutic drug level monitoring, Z78.0 - Asymptomatic menopausal state, Z79.83 - retirement (current) use of bisphosphonates Hemoglobin A1c 6 Months E03.9 - Hypothyroidism, unspecified, E78.5 - Hyperlipidemia, unspecified, I95.9 - Hypotension, unspecified, M85.852 - Other specified disorders of bone density and structure, left thigh, R73.01 - Impaired fasting glucose, Z51.81 - Encounter for therapeutic drug level monitoring, Z78.0 - Asymptomatic menopausal state, Z79.83 - retirement (current) use of bisphosphonates Lipid Panel 6 Months E03.9 - Hypothyroidism, unspecified, E78.5 - Hyperlipidemia, unspecified, I95.9 - Hypotension, unspecified, M85.852 - Other specified disorders of bone density and structure, left thigh, R73.01 - Impaired fasting glucose, Z51.81 - Encounter for therapeutic drug level monitoring, Z78.0 - Asymptomatic menopausal state, 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 Thyroid Stimulating Hormone 6 Months E03.9 - Hypothyroidism, unspecified, E78.5 - Hyperlipidemia, unspecified, I95.9 - Hypotension, unspecified, M85.852 - Other specified disorders of bone density and structure, left thigh, R73.01 - Impaired fasting glucose, Z51.81 - Encounter for therapeutic drug level monitoring, Z78.0 - Asymptomatic menopausal state, 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 Vitamin D 25-OH Total 6 Months E03.9 - Hypothyroidism, unspecified, E78.5 - Hyperlipidemia, unspecified, I95.9 - Hypotension, unspecified, M85.852 - Other specified disorders of bone density and structure, left thigh, R73.01 - Impaired fasting glucose, Z51.81 - Encounter for therapeutic drug level monitoring, Z78.0 - Asymptomatic menopausal state, Z79.83 - retirement (current) use of bisphosphonates Coding Level of Care Code Est Pt Level 4 (99671) Diagnoses Osteopenia of left femoral neck M85.852 Encounter for monitoring alendronate therapy Z51.81; Z79.83 Hypotension (arterial) I95.9 Impaired fasting glucose R73.01 Dyslipidemia E78.5 Acquired hypothyroidism E03.9 Additional Codes KITTY-7 Assessment Billing - KITTY-7 Assessment Tool: KITTY-7 Assessment 90490 ([id number])
[2022-12-15 09:35] VITALS: BP 112/64; PULSE 77; O2SAT 99; BMI 24.8
== END 2022-12-15 11:12 | disposition home or self-care (01) ==
PROVIDERS: PCP Internal Medicine; Visit Provider Internal Medicine
DX: E03.9 Hypothyroidism, unspecified (principal); M85.852 Other specified disorders of bone density and structure, left thigh; Z51.81 Encounter for therapeutic drug level monitoring; Z79.83 Long term (current) use of bisphosphonates; I95.9 Hypotension, unspecified; R73.01 Impaired fasting glucose; E78.5 Hyperlipidemia, unspecified
CPT/HCPCS: 99214

== ENCOUNTER 2022-12-31 08:06 | Outpatient (AMB) | payer MEDICARE, SELFPAY ==
--- NOTE | 2022-12-31 08:08 | AM.OFFWIN_ITS ---
Intake Vital Signs 12/31/22 08:09 Weight 127 lb BP 110/70 Blood Pressure Location Lt brachial Position Sitting Pulse 68 Pulse Source Pulse Oximeter Temp 97.1 F Temp Source Temporal Artery Scan Pulse Oximetry (%) 100 Oxygen Delivery Method Room Air Intake Visit Reasons: EP Rash after RSV vaccine Intake Note: Patient here because she has a rash that started this morning all over body after getting her rsc vaccine last vaccine. Patient Tobacco Use Status: Never used Tobacco Allergies Chocolate Allergy (Unknown, Verified 12/31/22 08:10) Hives Penicillins [PENICILLINS] Allergy (Unknown, Verified 12/31/22 08:10) RASH Do you need a note to return to daycare/school/sports/work: No HPI HPI Comments History of Present Illness Details This is a 67-year-old female who presents to the office today for sick visit. Patient complaining of diffuse rash all over her body that began this morning. Patient states she received the RSV vaccine last week but otherwise denies any new or abnormal exposures to creams, lotions, soaps, detergents, or foods. She denies any chest tightness, shortness of breath, wheezing, throat swelling, or difficulty swallowing. She otherwise feels well without fever/chills. [facility] Medical History (Updated 12/15/22 @ 09:56 by Jina Lopez MD) Acquired hypothyroidism Dyslipidemia Encounter for monitoring alendronate therapy Hearing loss, bilateral Hx of syncope Impaired fasting glucose Irritable bowel syndrome Osteopenia of left femoral neck Osteoporosis Palpable thyroid Postmenopause Recurrent syncope Seasonal allergic rhinitis Surgical History History of colonoscopy Family History Mother Breast cancer CAD (coronary artery disease) CVD (cardiovascular disease) Father Medical history non-contributory Brother No problems noted. Social History Housing: House Alcohol intake: never Patient Tobacco Use Status: Never used Tobacco e-Cigarette/Vaping Use: Never Used Current occupational status: retired Cognitive needs: No Hearing needs: Yes Vision needs: Yes Review of Systems Const All systems reviewed & are unremarkable except as noted in HPI and below Reports no additional complaints Eyes Reports no additional complaints ENT Reports no additional complaints Card Reports no additional complaints Resp Reports no additional complaints GI Reports no additional complaints Reports no additional complaints Musc Reports no additional complaints Skin/Breast Reports system reviewed and no additional complaints, except as documented and Reports rash Neuro Reports no additional complaints Psych Reports no additional complaints Endo Reports no additional complaints Kaveh/Lymph Reports no additional complaints Aller/Immun Reports no additional complaints Physical Exam Const General: cooperative, healthy appearing, no acute distress and well developed Orientation/consciousness: patient oriented x3 HEENT Head: Yes normal to inspection Ears: hearing grossly normal bilaterally General nose exam: Normal external nose present Face and sinus: Yes normal facial exam Mouth: Normal oral and palatal mucosa present Eyes General: appearance normal, both eyes and all related structures Pupils: Equal, round and reactive pupils present EOM: EOMs intact bilaterally Resp Effort & Inspection: normal respiratory effort and no respiratory distress Auscultation: clear to auscultation bilaterally Cardio Rate: regular rate Rhythm: regular rhythm Heart sounds: no gallops, no murmurs and no rubs Peripheral pulses: Peripheral pulses 2+ throughout GI Inspection: No distended Palpation (GI): Soft to palpation and nontender Auscultation: normal bowel sounds Skin Other: Diffuse maculopapular rash on bilateral upper extremities, trunk/back, chest, upper legs, and face. No cellulitic changes or purulence drainage. Neuro General: patient oriented x3 Cranial nerves: Yes CN's II-XII intact bilaterally and Yes Equal, round and reactive pupils present Gait exam (Neuro): Normal gait present Motor exam (neuro): 5/5 motor strength present throughout Extrem General: Yes normal to inspection, Yes full ROM and Yes no clubbing, cyanosis or edema Psych Appearance: grossly normal Mental Status: mental status grossly normal Assessment & Plan Assessment & Plan (1) Allergic dermatitis: Code(s): L23.9 - Allergic contact dermatitis, unspecified cause Plan: Patient is presenting with a diffuse maculopapular rash all over her body sparing her lower legs that began this morning. She received the RSV vaccine last week but otherwise denies any new or abnormal exposures. History and physical most consistent with acute allergic dermatitis, possibly related it to RSV vaccine. Her vital signs are stable and she has no chest tightness, shortness of breath, wheezing, or throat swelling to suggest anaphylactic shock. Patient sent home on prednisone taper times 12 days. She was advised to utilize antihistamines. She was instructed to follow up. She was advised to go directly to the emergency room if she were to develop chest tightness, shortness of breath, wheezing, or throat swelling. Patient verbalized her understanding and she is in agreement with the plan. Medications: New prednisone Take 4 tablets daily x3 days followed by 3 tablets daily x3 days followed by 2 tablets daily x3 days followed by 1 tablet daily x3 days. 10 mg PO DIRECTED 30 tabs 0RF Coding Level of Care Code Est Pt Level 3 (80780) Diagnoses Allergic dermatitis L23.9
[2022-12-31 08:09] VITALS: BP 110/70; PULSE 68; TEMP 36.2; O2SAT 100
== END 2022-12-31 09:23 | disposition home or self-care (01) ==
PROVIDERS: PCP Internal Medicine; Visit Provider Physician Assistant Medical
DX: L23.9 Allergic contact dermatitis, unspecified cause (principal)
CPT/HCPCS: 99213

== ENCOUNTER 2023-01-13 08:22 | Outpatient (AMB) | payer MEDICARE, SELFPAY ==
--- NOTE | 2023-01-13 08:31 | A.OFFVIS_ITS ---
Intake Vital Signs 01/13/23 08:32 Height 5 ft Weight 126 lb 1.671 oz BMI 24.6 BP 112/68 Blood Pressure Location Lt brachial Position Sitting Pulse 74 Intake Visit Reasons: 4 mth f/up Intake Note: 4 month follow up Warehouse Administrator Required: No Accompanied by: Self / Same As Patient Allergies Chocolate Allergy (Unknown, Verified 12/31/22 08:10) Hives Penicillins [PENICILLINS] Allergy (Unknown, Verified 12/31/22 08:10) RASH Medication List - Last Reconciled 01/13/23 by Tom Griffin MD alendronate 70 mg PO QWEEK 90 days ascorbate calcium (vitamin C) 500 mg PO DAILY calcium carbonate 600 mg PO DAILY cholecalciferol (vitamin D3) 25 mcg PO DAILY fluticasone propionate 50 mcg/actuation (Flonase Allergy Relief) 1 spray intranasal DAILY folic acid 0.4 mg PO DAILY glucosamine HCl 1,000 mg (2 x 500 mg) PO DAILY levothyroxine 75 mcg PO .Every other morning levothyroxine 50 mcg PO .Every other morning loratadine 10 mg PO DAILY methylcellulose (laxative) (Citrucel) 500 mg PO DAILY midodrine 5 mg PO TID 90 days simvastatin 10 mg PO Q OTHER DAY sodium chloride 0.65% (Saline Mist) 1 spray intranasal BID PRN HPI HPI Comments History of Present Illness Details Candy returns for follow-up. She was seen in consultation regarding dizziness and falls. Prior to that, she was seen about 6 years ago for similar reasons. Then thought to have possibly vasovagal syncope. Thirty day monitor then unremarkable. Also had tilt-table testing and thought to be overall vasovagal in nature. Due to recurrence of dizzy spells, underwent re- evaluation. Thought to be from low blood pressure/orthostatic hypotension. Subsequently, had 1 further tilt-table test. Then put on midodrine. She states she is actually feeling very good. She has not had any further dizziness or in fact any concerns at all. In her own words, she is feeling great. [facility] Medical History (Updated 01/13/23 @ 08:40 by Tom Griffin MD) Encounter for monitoring alendronate therapy Osteopenia of left femoral neck Recurrent syncope Hx of syncope Palpable thyroid Postmenopause Irritable bowel syndrome Osteoporosis Hearing loss, bilateral Seasonal allergic rhinitis Impaired fasting glucose Dyslipidemia Acquired hypothyroidism Surgical History History of colonoscopy Family History Mother Breast cancer CAD (coronary artery disease) CVD (cardiovascular disease) Father Medical history non-contributory Brother No problems noted. Social History Housing: House Alcohol intake: never Patient Tobacco Use Status: Never used Tobacco e-Cigarette/Vaping Use: Never Used Current occupational status: retired Cognitive needs: No Hearing needs: Yes Vision needs: Yes Review of Systems Const All systems reviewed & are unremarkable except as noted in HPI and below Reports as per HPI and Reports no additional complaints Eyes Reports as per HPI and Denies no additional complaints ENT Denies no additional complaints and Reports as per HPI Card Reports as per HPI, Reports no additional complaints, Denies acrocyanosis, Denies chest pain, Denies leg edema, Denies lightheadedness, Denies palpitations and Denies dyspnea Resp Reports as per HPI, Denies no additional complaints and Denies dyspnea GI Reports as per HPI and Denies no additional complaints Reports as per HPI Musc Reports no additional complaints and Reports as per HPI Skin/Breast Reports system reviewed and no additional complaints, except as documented Neuro Reports no additional complaints and Reports as per HPI Psych Reports no additional complaints and Reports as per HPI Endo Reports no additional complaints, Reports as per HPI and Denies palpitations Kaveh/Lymph Reports no additional complaints and Reports as per HPI Aller/Immun Reports no additional complaints and Reports as per HPI Physical Exam Vital Signs: Last Vital Signs Pulse 74 01/13/23 08:32 BP 112/68 01/13/23 08:32 BMI result Body Mass Index 24.6 Const General: comfortable and no acute distress Orientation/consciousness: patient oriented x3 HEENT Other: Unremarkable Head: Yes normal to inspection Neck Neck: Yes normal visual inspection Chest Chest palpation & inspection: normal inspection of the chest Resp Auscultation: clear to auscultation bilaterally Cardio Palpation: normal PMI Heart sounds: S1 normal heart sound present, S2 normal heart sound present, no gallops, no murmurs and no rubs GI Palpation (GI): Soft to palpation Back/Spine/Pelvis Other: unremarkable Skin General skin exam: no rashes or lesions noted Neuro General: patient oriented x3 Extrem General: Yes normal to inspection Psych Mental Status: mental status grossly normal Assessment & Plan Assessment & Plan (1) Recurrent syncope: Code(s): R55 - Syncope and collapse (2) Hypotension (arterial): Code(s): I95.9 - Hypotension, unspecified Qualifiers: Hypotension type: idiopathic hypotension Qualified Code(s): I95.0 - Idiopathic hypotension Plan Cardiac studies reviewed. EKG shows sinus rhythm at 63/Min; mildly prolonged FL interval but otherwise unremarkable. Echocardiogram with LVEF of 60-65%. No significant valvular issues. Tilt-table study repeated and essentially unremarkable. Blood pressures were actually acceptable. Overall, symptoms possibly from low blood pressure/orthostasis. Continue to liberalize salt intake. Try compression stockings. Continue mid odrine. If any symptoms still recur, she will contact us. Coding Level of Care Code Est Pt Level 3 (66890) Diagnoses Recurrent syncope R55 Idiopathic hypotension I95.0 Hypotension type: idiopathic hypotension
[2023-01-13 08:32] VITALS: BP 112/68; PULSE 74; BMI 24.6
== END 2023-01-13 08:45 | disposition home or self-care (01) ==
PROVIDERS: PCP Internal Medicine; Referring Provider Internal Medicine; Visit Provider Internal Medicine
DX: R55 Syncope and collapse (principal); I95.0 Idiopathic hypotension
CPT/HCPCS: 99213

== ENCOUNTER → 2023-01-13 08:22 | Outpatient (BNVA) | payer MEDICARE, SELFPAY | PROVIDERS: PCP Internal Medicine; Referring Provider Internal Medicine; Visit Provider Internal Medicine | DX: I95.0 Idiopathic hypotension (principal); R55 Syncope and collapse | CPT/HCPCS: 99212 ==

== ENCOUNTER 2023-02-02 11:32 | Outpatient (AMB) | payer MEDICARE, SELFPAY ==
--- NOTE | 2023-02-02 12:23 | AM.OFFWIN_ITS ---
Intake Intake Visit Reasons: Cataract Surgery-L 02/07-R 02/21 Patient Tobacco Use Status: Never used Tobacco Allergies Chocolate Allergy (Unknown, Verified 12/31/22 08:10) Hives Penicillins [PENICILLINS] Allergy (Unknown, Verified 12/31/22 08:10) [facility] Medical History (Updated 01/13/23 @ 08:40 by Tom Griffin MD) Encounter for monitoring alendronate therapy Osteopenia of left femoral neck Recurrent syncope Hx of syncope Palpable thyroid Postmenopause Irritable bowel syndrome Osteoporosis Hearing loss, bilateral Seasonal allergic rhinitis Impaired fasting glucose Dyslipidemia Acquired hypothyroidism Surgical History (Updated 02/02/23 @ 09:11 by Gina Young RN) Hx of arthroscopy History of carpal tunnel surgery of right wrist Hx of dilation and curettage Hx of nasal septoplasty Hx of cholecystectomy History of colonoscopy Family History Mother Breast cancer CAD (coronary artery disease) CVD (cardiovascular disease) Father Medical history non-contributory Brother No problems noted. Social History Household Members Other:: father Housing: House Are you a primary menagerie caretaker to a significant other at home: No Do you presently have visiting nurse or other home services: No Alcohol intake: never Patient Tobacco Use Status: Never used Tobacco e-Cigarette/Vaping Use: Never Used Advance Directives Date on File: 03/11/22 Current occupational status: retired Cognitive needs: No Hearing needs: Yes Vision needs: Yes Coding
[2023-02-02 12:24] VITALS: BP 112/68; PULSE 78; O2SAT 98; BMI 24.8
--- NOTE | 2023-02-02 12:26 | A.OFFPC_ITS ---
Vital Signs 02/02/23 12:24 Height 5 ft Weight 127 lb BMI 24.8 BP 112/68 Blood Pressure Location Rt brachial Position Sitting Pulse 78 Pulse Source Pulse Oximeter Pulse Oximetry (%) 98 Intake Visit Reasons: Cataract Surgery-L 02/07-R 02/21 Intake Note: pt is here for pre op clearance for cataract surgery left eye 02/07 or right eye 02/21 Youth Minister Required: No Accompanied by: Self / Same As Patient Allergies Chocolate Allergy (Unknown, Verified 02/02/23 12:26) Hives Penicillins [PENICILLINS] Allergy (Unknown, Verified 02/02/23 12:26) RASH rsv vaccine Allergy (Intermediate, Uncoded 02/02/23 12:44) Diffuse rash Medication List - Last Reconciled 02/02/23 by Jina Lopez MD alendronate 70 mg PO QWEEK 90 days ascorbate calcium (vitamin C) 500 mg PO DAILY calcium carbonate 600 mg PO DAILY cholecalciferol (vitamin D3) 25 mcg PO DAILY fluticasone propionate 50 mcg/actuation (Flonase Allergy Relief) 1 spray intranasal DAILY folic acid 0.4 mg PO DAILY glucosamine HCl 1,000 mg (2 x 500 mg) PO DAILY levothyroxine 75 mcg PO .Every other morning levothyroxine 50 mcg PO .Every other morning loratadine 10 mg PO DAILY methylcellulose (laxative) (Citrucel) 500 mg PO DAILY midodrine 5 mg PO TID 90 days simvastatin 10 mg PO Q OTHER DAY sodium chloride 0.65% (Saline Mist) 1 spray intranasal BID PRN Tobacco use date assessed: 12/15/22 Fall risk assessment: No Falls in past year Last assessed Fall Risk: 02/02/23 Dental Screening Dental Screen Date: 02/02/23 Did you have a dental visit in the last 12 months?: Yes Did you have a dental problem in the last 6 months where you did not have access to dental care?: No Was dental information given to patient?: Patient has dentist HPI Cataract Surgery-L 02/07-R 02/21 HPI Details 67-year-old lady here today for preoperative exam for cataract surgery on 02/07/2023 for left eye and 02/21/2023 for the right eye, requested by Dr. Owens. She has been feeling well, no complaints at present time. [facility] Medical History (Updated 02/02/23 @ 13:01 by Jnia Lopez MD) Preoperative examination Encounter for monitoring alendronate therapy Osteopenia of left femoral neck Recurrent syncope Hx of syncope Palpable thyroid Postmenopause Irritable bowel syndrome Osteoporosis Hearing loss, bilateral Seasonal allergic rhinitis Impaired fasting glucose Dyslipidemia Acquired hypothyroidism Surgical History Hx of arthroscopy History of carpal tunnel surgery of right wrist Hx of dilation and curettage Hx of nasal septoplasty Hx of cholecystectomy History of colonoscopy Family History Mother Breast cancer CAD (coronary artery disease) CVD (cardiovascular disease) Father Medical history non-contributory Brother No problems noted. Social History Household Members Other:: father Housing: House Are you a primary home care administrator to a significant other at home: No Do you presently have visiting nurse or other home services: No Alcohol intake: never Patient Tobacco Use Status: Never used Tobacco e-Cigarette/Vaping Use: Never Used Advance Directives Date on File: 03/11/22 Current occupational status: retired Cognitive needs: No Hearing needs: Yes Vision needs: Yes Questionnaire Thrive Questionnaire Date Thrive assessed: 12/15/22 AUDIT C Alcohol Use Questionnaire (AUDIT-C) 1. How often do you have a drink containing alcohol?: Never 3. How often do you have six or more drinks on one occasion?: Never Total Score: 0 KITTY-7 AMB Questionnaire KITTY-7 Date KITTY - 7 assessed: 12/15/22 Feeling nervous, anxious, or on edge: 0 = Not at all Not being able to stop or control worryin = Not at all Worrying too much about different things: 0 = Not at all Trouble relaxin = Not at all Being so restless that it is hard to sit still: 0 = Not at all Becoming easily annoyed or irritable: 0 = Not at all Feeling afraid as if something awful might happen: 0 = Not at all Total KITTY-7 score (0-4 normal; 5-9 mild; 10-14 moderate; 15-21 severe): 0 Source: Developed by Drs. Devon LMonica Carvalho, Kane Ch and colleagues, with an educational jerman from [employer]. KITTY-7 Assessment Billing KITTY-7 Assessment Tool: KITTY-7 Assessment 93008 Review of Systems Const All systems reviewed & are unremarkable except as noted in HPI and below Reports no additional complaints Eyes Denies no additional complaints ENT Denies no additional complaints Card Reports no additional complaints, Denies acrocyanosis, Denies chest pain, Denies leg edema, Denies lightheadedness, Denies palpitations and Denies dyspnea Resp Denies no additional complaints and Denies dyspnea GI Denies no additional complaints Reports no additional complaints Musc Reports no additional complaints Skin/Breast Reports system reviewed and no additional complaints, except as documented Neuro Denies Abnormal speech present Psych Reports no additional complaints and Reports as per HPI Endo Reports no additional complaints, Reports as per HPI and Denies palpitations Kaveh/Lymph Reports no additional complaints and Reports as per HPI Aller/Immun Reports no additional complaints and Reports as per HPI Physical exam (Primary Care) Vital Signs: Last Vital Signs Pulse 78 02/02/23 12:24 BP 112/68 02/02/23 12:24 Pulse Ox 98 02/02/23 12:24 BMI result Body Mass Index 24.8 Tobacco/Smoking Status: Tobacco use Status Tobacco use date assessed 12/15/22 02/02/23 12:29 Patient Tobacco Use Status Never used Tobacco 02/02/23 12:29 e-Cigarette/Vaping Use Never Used 02/02/23 12:29 Thrive Assessment: Date of Thrive Assessment Date Thrive assessed 12/15/22 02/02/23 12:29 Const Other: Alert oriented x3, no acute cardiorespiratory distress noted, ambulatory with normal gait Orientation/consciousness: patient oriented x3 [facility] Ears: hearing grossly impaired bilaterally (Wears hearing aids) General nose exam: Normal external nose present Face and sinus: Yes face symmetric Mouth: Normal oral and palatal mucosa present, oropharynx normal and moist mucous membranes Eyes General: appearance normal, both eyes and all related structures Neck Neck: Yes full ROM, Yes no lymphadenopathy, Yes no meningeal signs and Yes supple Thyroid: Thyroid normal Resp Auscultation: clear to auscultation bilaterally Cardio Other: S1-S2 present regular rate and rhythm Bruits: no abdominal aortic bruits GI Inspection: Yes normal to inspection Palpation (GI): No Abdominal aortic bruit present, Soft to palpation, nontender and no guarding Auscultation: normal bowel sounds General: Yes no CVA tenderness Back/Spine/Pelvis Back: no CVA tenderness and No back tenderness Skin General skin exam: no rashes or lesions noted Neuro General: patient oriented x3, gait normal, tone normal, moves all extremities, Normal light touch and pain sensation, no meningeal signs, no focal motor deficits and CN's II-XI intact bilaterally Speech: No Abnormal speech present Extrem General: Yes full ROM, Yes no joint enlargement, Yes no pedal edema and Yes normal gait Results Reviewed Results Reviewed: ENTERED: 12/08/[address]: ORDERED: Met Prof Fast, AST, ALT, Lipid Panel, Vitamin D 25-OH, Free T4, TSH Test Result Flag Reference Site Sodium 143 135-145 mmol/L Potassium 4.4 3.3-5.1 mmol/L CL 106 96-108 mmol/L CO2 28 22-29 mmol/L Gap 13 12-20 BUN 13 9-16 mg/dL Creat 0.68 0.5-1.4 mg/dL EGFR > 60 NOTE: For -[place] individuals, multiply the result by 1.210. Chronic Kidney Disease: Estimated GFR < 60 mL/min/1.73m2 Severe Kidney Disease: Estimated GFR < 15 mL/min/1.73m2 FBS 84 60-99 mg/dL CA 9.1 8.4-10.2 mg/dL AST (GOT) 19 5-31 U/L ALT (GPT) 17 0-31 U/L Triglyceride 45 mg/dL Desirable Triglyceride: less than 150 mg/dL Borderline High Triglyceride 150-199 mg/dL High Triglyceride: 200-499 mg/dL Very High Triglyceride: greater than or equal to 5OO mg/dL Chol 185 mg/dL Desirable Cholesterol: less than 200 mg/dL Borderline High Cholesterol: 200-239 mg/dL High Cholesterol: greater than 239 mg/dL LDL Calculated 107 mg/dl Desirable LDL: less than 100 mg/dL Near Optimal/Above Optimal LDL: 110-129 mg/dL Borderline High LDL: 130-159 mg/dL High LDL: 160-189 mg/dL Very High LDL: greater than or equal to 190 mg/dL HDL 69 mg/dL Desirable HDL: greater than 40 mg/dL Note: This HDL assay may give artificially low results in patients with liver disease. Vit D 25-OH Tot 77.1 >30 ng/mL Health Based Reference Values* < 20 ng/mL Deficient 20-30 ng/mL Insufficient > 30 ng/mL Sufficient *Cristina GOLDSTEIN. N Engl J Med. 2007;357:266-280 Care must be taken in interpreting Vitamin D results from different laboratories and methodologies. Published data demonstrated that results from patients undergoing hemodialysis may show a negative bias when tested with various automated 25-OH vitamin D assays when compared to LC-MS/MS. When testing samples from patients whose predominant form of Vitamin D is Vitamin D2, such as patients receiving Vitamin D2 supplementation, results that are subtherapeutic should be confirmed with another method such as LC-MS/MS. Free T4 0.95 0.71-1.85 ng/dL TSH 3rd Gen. 0.99 0.32-4.0 uIU/mL TSH 3rd Generation ([facility]) Assessment and Plan Assessment & Plan (1) Preoperative examination: Code(s): Z01.818 - Encounter for other preprocedural examination Plan: 67-year-old. P lady here today preoperative exam for cataract surgery to be done on 02-28 OS and 02/21/2023 OD, requested by Dr. Owens. She has been feeling well, no complaints of any cardiac or respiratory symptoms. Not on any new blood thinners. She however is taking midodrine for hypotension, advised to take it during the day of surgery and continue taking her levothyroxine up today of surgery. Patient with a low cardiac risk index for proposed surgery (2) Hypotension (arterial): Code(s): I95.9 - Hypotension, unspecified Qualifiers: Hypotension type: idiopathic hypotension Qualified Code(s): I95.0 - Idiopathic hypotension Plan: Continue on midodrine, even on day of surgery (3) Osteopenia of left femoral neck: Code(s): M85.852 - Other specified disorders of bone density and structure, left thigh Plan: Continue with vitamin-D 3 supplement, stay active to regular weight-bearing exercise and take adequate calcium from dietary sources. (4) Dyslipidemia: Code(s): E78.5 - Hyperlipidemia, unspecified Plan: Reviewed recent fasting lipid profile with patient with levels within normal limits . Continue with simvastatin 10 mg taken every other day , in addition to adherence to low-cholesterol diet and regular exercise, at least 30 minutes 3 to 4 times a week. Advised patient to make healthy food choices, eat more fruits, vegetables, whole grains, wild caught fish and low-fat dairy. Limit amount of meat and fried or fatty food products, as well as processed foods and fast foods. (5) Acquired hypothyroidism: Code(s): E03.9 - Hypothyroidism, unspecified Plan: Thyroid levels stable and controlled on current treatment, will continue on current dose of levothyroxine (6) Seasonal allergic rhinitis: Code(s): J30.2 - Other seasonal allergic rhinitis Qualifiers: Allergic rhinitis trigger: unspecified Qualified Code(s): J30.2 - Other seasonal allergic rhinitis Plan: Takes loratadine as needed Coding Level of Care Code Est Pt Level 4 (45376) Diagnoses Preoperative examination Z01.818 Idiopathic hypotension I95.0 Hypotension type: idiopathic hypotension Osteopenia of left femoral neck M85.852 Dyslipidemia E78.5 Acquired hypothyroidism E03.9 Seasonal allergic rhinitis, unspecified trigger J30.2 Allergic rhinitis trigger: unspecified Additional Codes KITTY-7 Assessment Billing - KITTY-7 Assessment Tool: KITTY-7 Assessment 17092 ([id number])
== END 2023-02-02 12:54 | disposition home or self-care (01) ==
PROVIDERS: PCP Internal Medicine; Visit Provider Internal Medicine
DX: Z01.818 Encounter for other preprocedural examination (principal); I95.0 Idiopathic hypotension; M85.852 Other specified disorders of bone density and structure, left thigh; E78.5 Hyperlipidemia, unspecified; E03.9 Hypothyroidism, unspecified; J30.2 Other seasonal allergic rhinitis
CPT/HCPCS: 99214

== ENCOUNTER 2023-02-07 08:20 | Day surgery (SDC) | payer MEDICARE, SELFPAY ==
[2023-02-02 09:05] VITALS: BMI 24.6
--- NOTE | 2023-02-04 07:50 | MHC.SHP ---
Pre-Procedural Eval Section A Date of Service: 02/04/23 The patient is an INPATIENT: No Changes since office visit: No Cold of Flu in the past 2 weeks, No New Medical Problems, No Changes in Medication and No Patient answered all questions The History & Physical has been completed within 30 days and I have reviewed it.: Yes Section B Chief Complaint: Cortical age-related cataract, left eye Allergies: Allergies Allergy/AdvReac Type Severity Reaction Status Date / Time Chocolate Allergy Unknown Hives Verified 02/02/23 12:26 Penicillins [PENICILLINS] Allergy Unknown RASH Verified 02/02/23 12:26 rsv vaccine Allergy Intermediate Diffuse Uncoded 02/02/23 12:44 rash Plan Diagnosis/Plan: Unchanged I have reviewed the history and physical and performed a pertinent physical examination on my patient. No changes have occurred unless specified. Time Spent With Patient Time: Total time managing care of this patient today ____ minutes.
--- NOTE | 2023-02-04 10:51 | P.CONAN_ITS ---
Documented by User: Corine Lieberman NP 02/04/23 10:52 HPI - Anesthesia Eval Consult details Narrative: 67yo F for Left Cataract Extraction IOL Insertion PCP cleared No previous cataract on record PMFSH Active Problems Active Problems: All Active Problems (Updated 02/02/23 @ 13:01 by Jina Lopez MD) Preoperative examination (Acute) Hypotension (arterial) (Acute) Encounter for monitoring alendronate therapy (Acute) Osteopenia of left femoral neck (Acute) Palpable thyroid (Acute) Irritable bowel syndrome (Acute) Hearing loss, bilateral (Acute) Seasonal allergic rhinitis (Acute) Impaired fasting glucose (Acute) Dyslipidemia (Acute) Acquired hypothyroidism (Acute) Past Medical History Medical History Preoperative examination Encounter for monitoring alendronate therapy Osteopenia of left femoral neck Recurrent syncope Hx of syncope Palpable thyroid Postmenopause Irritable bowel syndrome Osteoporosis Hearing loss, bilateral Seasonal allergic rhinitis Impaired fasting glucose Dyslipidemia Acquired hypothyroidism Family History Family History Mother Breast cancer CAD (coronary artery disease) CVD (cardiovascular disease) Father Medical history non-contributory Brother No problems noted. Surgical History Surgical History Hx of arthroscopy History of carpal tunnel surgery of right wrist Hx of dilation and curettage Hx of nasal septoplasty Hx of cholecystectomy History of colonoscopy Social History Social History Household Members Other:: father Housing: House Are you a primary respiratory care assistant to a significant other at home: No Do you presently have visiting nurse or other home services: No Alcohol intake: never Patient Tobacco Use Status: Never used Tobacco e-Cigarette/Vaping Use: Never Used Use of substances other than those prescribed or required for medical reasons: No Have you been hit, kicked, punched, or otherwise hurt by someone within the past year? If so, by whom?: No Are you DNR?: No Advance Directives: Yes ([facility] in [facility], states father & brother are her primary contacts) Advance Directives Information Provided: Yes Advance Directives on File: Yes Advance Directives Date on File: 03/11/22 Recently lost weight without trying: No Eating poorly because of decreased appetite: No Nutrition Risks: No Nutritional Risk Poor oral hygiene: No (upper partial) Current occupational status: retired Cognitive needs: No Hearing needs: Yes Vision needs: Yes Meds Allergies Allergy/AdvReac Type Severity Reaction Status Date / Time Chocolate Allergy Unknown Hives Verified 02/02/23 12:26 Penicillins [PENICILLINS] Allergy Unknown RASH Verified 02/02/23 12:26 rsv vaccine Allergy Intermediate Diffuse Uncoded 02/02/23 12:44 rash Home Medications Medication Instructions Recorded Confirmed Last Taken Type ascorbate calcium (vitamin C) 500 500 mg PO DAILY 07/15/20 02/02/23 Unknown History mg tablet calcium carbonate 600 mg calcium 600 mg PO DAILY 07/15/20 02/02/23 Unknown History (1,500 mg) tablet cholecalciferol (vitamin D3) 25 25 mcg PO DAILY 07/15/20 02/02/23 Unknown History mcg (1,000 unit) capsule fluticasone propionate 50 1 spray intranasal DAILY 07/15/20 02/02/23 Unknown History mcg/actuation nasal spray,suspension (Flonase Allergy Relief) folic acid 400 mcg tablet 0.4 mg PO DAILY 07/15/20 02/02/23 Unknown History loratadine 10 mg tablet 10 mg PO DAILY 07/15/20 02/02/23 Unknown History methylcellulose (laxative) 500 mg 500 mg PO DAILY 07/15/20 02/02/23 Unknown History tablet (Citrucel) sodium chloride 0.65 % nasal spray 1 spray intranasal BID PRN nasal 07/15/20 02/02/23 Unknown History aerosol (Saline Mist) cogestion Exam Exam Date and Time: February 04, 2023 1051 Height,Weight and Vital Signs: Height 5 ft Weight 57.153 kg Narrative Narrative: ECHO 05/2022 Nml study Assessment and Plan Assessment Anesthesia Assessment: Chart Reviewed Documented by User: Bacilio Hu MD 02/07/23 09:03 [facility] Past Medical History Medical History Preoperative examination Encounter for monitoring alendronate therapy Osteopenia of left femoral neck Recurrent syncope Hx of syncope Palpable thyroid Postmenopause Irritable bowel syndrome Osteoporosis Hearing loss, bilateral Seasonal allergic rhinitis Impaired fasting glucose Dyslipidemia Acquired hypothyroidism Family History Family History Mother Breast cancer CAD (coronary artery disease) CVD (cardiovascular disease) Father Medical history non-contributory Brother No problems noted. Family history of problems with anesthesia: No Surgical History Surgical History Hx of arthroscopy History of carpal tunnel surgery of right wrist Hx of dilation and curettage Hx of nasal septoplasty Hx of cholecystectomy History of colonoscopy History of Problems with Anesthesia: No Social History Social History Household Members Other:: father Housing: House Are you a primary respiratory care assistant to a significant other at home: No Do you presently have visiting nurse or other home services: No Alcohol intake: never Patient Tobacco Use Status: Never used Tobacco e-Cigarette/Vaping Use: Never Used Use of substances other than those prescribed or required for medical reasons: No Have you been hit, kicked, punched, or otherwise hurt by someone within the past year? If so, by whom?: No Are you DNR?: No Advance Directives: Yes ([facility] in [facility], states father & brother are her primary contacts) Advance Directives Information Provided: Yes Advance Directives on File: Yes Advance Directives Date on File: 03/11/22 Recently lost weight without trying: No Eating poorly because of decreased appetite: No Nutrition Risks: No Nutritional Risk Poor oral hygiene: No (upper partial) Current occupational status: retired Cognitive needs: No Hearing needs: Yes Vision needs: Yes Meds Allergies Allergy/AdvReac Type Severity Reaction Status Date / Time Chocolate Allergy Unknown Hives Verified 02/02/23 12:26 Penicillins [PENICILLINS] Allergy Unknown RASH Verified 02/02/23 12:26 rsv vaccine Allergy Intermediate Diffuse Uncoded 02/02/23 12:44 rash Home Medications Medication Instructions Recorded Confirmed Last Taken Type ascorbate calcium (vitamin C) 500 500 mg PO DAILY 07/15/20 02/02/23 Unknown History mg tablet calcium carbonate 600 mg calcium 600 mg PO DAILY 07/15/20 02/02/23 Unknown History (1,500 mg) tablet cholecalciferol (vitamin D3) 25 25 mcg PO DAILY 07/15/20 02/02/23 Unknown History mcg (1,000 unit) capsule fluticasone propionate 50 1 spray intranasal DAILY 07/15/20 02/02/23 Unknown History mcg/actuation nasal spray,suspension (Flonase Allergy Relief) folic acid 400 mcg tablet 0.4 mg PO DAILY 07/15/20 02/02/23 Unknown History loratadine 10 mg tablet 10 mg PO DAILY 07/15/20 02/02/23 Unknown History methylcellulose (laxative) 500 mg 500 mg PO DAILY 07/15/20 02/02/23 Unknown History tablet (Citrucel) sodium chloride 0.65 % nasal spray 1 spray intranasal BID PRN nasal 07/15/20 02/02/23 Unknown History aerosol (Saline Mist) cogestion Exam Airway Mallampati Class: II TM Dist: >3cm Neck ROM: Full Loose/Missing/Broken Teeth: Yes (poor dentition globally) Heart: [id number] Lungs: cta b/l Assessment and Plan Assessment Anesthesia Assessment: Anesthesia Plan Discussed Final Anesthetic Review Family History of Problems with Anesthesia: No History of Problems with Anesthesia: No NPO: Yes ASA Class: III Final Preanesthetic Review: No Changes in Pt Med Stat, Meds/Allgs Chart Reviewed, Consent Obtained/Reviewed and Anes Risks/Benef Reviewed Patient Risk: Intermediate Procedure Risk: Intermediate Assessment/Block/Sedation in SS: Assess/Block/Sedation-SS Anesthetic Plan Anesthetic Plan: MAC: and Agree w/ Assess. and Plan Disposition: Standard PACU
[2023-02-07] MEDS: Phenylephrine HCL 2.5% Oph SoL 2 ML BOTTLE 1 DROP EYE-LEFT ×3 (08:45→08:55)
[2023-02-07] MEDS: Tropicamide 1 % Ophth Sol 3 ML BTL 1 DROP EYE-LEFT ×3 (08:45→08:55)
[2023-02-07] MEDS: Lactated Ringers 500 ML 50 ML IV (08:45)
[2023-02-07] MEDS: Ketorolac Tromethamine 0.5% Op 5 ML DROPS 1 DROP EYE-LEFT ×3 (08:46→08:55)
[2023-02-07] MEDS: Tetracaine HCl/PF 0.5% Oph Sol 4 ML DROPS 1 DROP EYE-LEFT (08:46)
[2023-02-07] MEDS: Cyclopentolate 1 % Ophth Sol 2 ML DRPBTL 1 DROP EYE-LEFT ×3 (08:46→08:55)
[2023-02-07 08:57] VITALS: BP 140/51; PULSE 53; RESP 18; TEMP 36.6; O2SAT 96
--- NOTE | 2023-02-07 09:51 | HO.PNOPHT ---
Ophthalmology Procedure Procedure Date of Service: 02/07/23 Ophthalmology Viscoelastic: Healwin Duet Dual Pack Pro Ophthalmology Lenses: TECMARY [id number] (20) Procedure Notes: PREOPERATIVE DIAGNOSIS: Decreased visual acuity left eye secondary to cataract POSTOPERATIVE DIAGNOSIS: Same PROCEDURE: Left cataract extraction with intraocular lens insertion SURGEON: James Owens M.D. ANESTHESIA: Topical/MAC ESTIMATED BLOOD LOSS: None COMPLICATIONS: None After obtaining informed consent, the patient was brought to the operation room suite and placed in the supine position. After adequate sedation per anesthesia, topical drops of Tetracaine were given to the left eye. The eye was then prepped and draped in the usual sterile fashion. The operating room microscope was then positioned over the operative eye and a lid speculum placed. A paracentesis was created. Viscoelastic was then instilled into the anterior chamber. A three plane incision was then created temporally, utilizing a 2.85 mm keratome. Capsulotomy forceps were then utilized to create a circular tear capsulotomy. Hydrodissection and hydrodelineation were carried out until adequate mobilization of the nucleus occurred. Phacoemulsification was then utilized to remove the dense central nucleus followed by removal of the cortical material utilizing the automated aspiration irrigation unit. Viscoat elastic was instilled into the posterior capsular bag followed by placement of a posterior chamber intraocular lens without difficulty. The residual Viscoat elastic was then removed utilizing the automated IA machine. The wound was check and found to be watertight. The patient tolerated the procedure well and the lid speculum was removed. Intracameral injection of Vigamox 0.1 mL followed by a subtenon injection of Kenalog-40 0.2 mL were administered. The patient will be seen in the a.m.
[2023-02-07 10:12] VITALS: BP 142/70; PULSE 54; RESP 16; TEMP 36.3; O2SAT 99
== END 2023-02-07 10:26 | disposition home or self-care (01) ==
PROVIDERS: PCP Internal Medicine; Visit Provider Ophthalmology
PROC: (CPT 66985; principal; 2023-02-07 10:00)
DX: H25.012 Cortical age-related cataract, left eye (principal); H54.7 Unspecified visual loss; E78.5 Hyperlipidemia, unspecified; E03.9 Hypothyroidism, unspecified; Z79.899 Other long term (current) drug therapy
CPT/HCPCS: 66984; J2250; J3301; V2632

== ENCOUNTER 2023-02-21 06:04 | Day surgery (SDC) | payer MEDICARE, SELFPAY ==
[2023-02-02 09:11] VITALS: BMI 24.6
--- NOTE | 2023-02-17 13:38 | P.CONAN_ITS ---
HPI - Anesthesia Eval Consult details Narrative: 67yo F for Right Cataract Extraction IOL Insertion PCP cleared Left eye 02/07/23 with MAC: Midaz 1 PMFSH Active Problems Active Problems: All Active Problems (Updated 02/02/23 @ 13:01 by Jina Lopez MD) Preoperative examination (Acute) Hypotension (arterial) (Acute) Encounter for monitoring alendronate therapy (Acute) Osteopenia of left femoral neck (Acute) Palpable thyroid (Acute) Irritable bowel syndrome (Acute) Hearing loss, bilateral (Acute) Seasonal allergic rhinitis (Acute) Impaired fasting glucose (Acute) Dyslipidemia (Acute) Acquired hypothyroidism (Acute) Past Medical History Medical History Preoperative examination Encounter for monitoring alendronate therapy Osteopenia of left femoral neck Recurrent syncope Hx of syncope Palpable thyroid Postmenopause Irritable bowel syndrome Osteoporosis Hearing loss, bilateral Seasonal allergic rhinitis Impaired fasting glucose Dyslipidemia Acquired hypothyroidism Family History Family History Mother Breast cancer CAD (coronary artery disease) CVD (cardiovascular disease) Father Medical history non-contributory Brother No problems noted. Family history of problems with anesthesia: No Surgical History Surgical History Hx of arthroscopy History of carpal tunnel surgery of right wrist Hx of dilation and curettage Hx of nasal septoplasty Hx of cholecystectomy History of colonoscopy History of Problems with Anesthesia: No Social History Social History Household Members Other:: father Housing: House Are you a primary healthcare receptionist to a significant other at home: No Do you presently have visiting nurse or other home services: No Alcohol intake: never Patient Tobacco Use Status: Never used Tobacco e-Cigarette/Vaping Use: Never Used Use of substances other than those prescribed or required for medical reasons: No Have you been hit, kicked, punched, or otherwise hurt by someone within the past year? If so, by whom?: No Are you DNR?: No Advance Directives: Yes ([facility] in [facility], father & brother are primary contacts) Advance Directives Information Provided: Yes Advance Directives on File: Yes Advance Directives Date on File: 03/11/22 Recently lost weight without trying: No Eating poorly because of decreased appetite: No Nutrition Risks: No Nutritional Risk Poor oral hygiene: No (upper partial) Current occupational status: retired Cognitive needs: No Hearing needs: Yes Vision needs: Yes Meds Allergies Allergy/AdvReac Type Severity Reaction Status Date / Time Chocolate Allergy Unknown Hives Verified 02/21/23 07:29 Penicillins [PENICILLINS] Allergy Unknown RASH Verified 02/21/23 07:29 rsv vaccine Allergy Intermediate Diffuse Uncoded 02/02/23 12:44 rash Home Medications Medication Instructions Recorded Confirmed Last Taken Type ascorbate calcium (vitamin C) 500 500 mg PO DAILY 07/15/20 02/02/23 Unknown History mg tablet calcium carbonate 600 mg calcium 600 mg PO DAILY 07/15/20 02/02/23 Unknown History (1,500 mg) tablet cholecalciferol (vitamin D3) 25 25 mcg PO DAILY 07/15/20 02/02/23 Unknown History mcg (1,000 unit) capsule fluticasone propionate 50 1 spray intranasal DAILY 07/15/20 02/02/23 Unknown History mcg/actuation nasal spray,suspension (Flonase Allergy Relief) folic acid 400 mcg tablet 0.4 mg PO DAILY 07/15/20 02/02/23 Unknown History loratadine 10 mg tablet 10 mg PO DAILY 07/15/20 02/02/23 Unknown History methylcellulose (laxative) 500 mg 500 mg PO DAILY 07/15/20 02/02/23 Unknown History tablet (Citrucel) sodium chloride 0.65 % nasal spray 1 spray intranasal BID PRN nasal 07/15/20 02/02/23 Unknown History aerosol (Saline Mist) cogestion Exam Exam Date and Time: February 17, 2023 1338 Height,Weight and Vital Signs: Height 5 ft Weight 57.153 kg Assessment and Plan Assessment Anesthesia Assessment: Chart Reviewed Final Anesthetic Review Family History of Problems with Anesthesia: No History of Problems with Anesthesia: No
--- NOTE | 2023-02-18 07:33 | MHC.SHP ---
Pre-Procedural Eval Section A Date of Service: 02/18/23 The patient is an INPATIENT: No Changes since office visit: No Cold of Flu in the past 2 weeks, No New Medical Problems, No Changes in Medication and No Patient answered all questions The History & Physical has been completed within 30 days and I have reviewed it.: Yes Section B Chief Complaint: Age-related nuclear cataract, right eye Allergies: Allergies Allergy/AdvReac Type Severity Reaction Status Date / Time Chocolate Allergy Unknown Hives Verified 02/02/23 12:26 Penicillins [PENICILLINS] Allergy Unknown RASH Verified 02/02/23 12:26 rsv vaccine Allergy Intermediate Diffuse Uncoded 02/02/23 12:44 rash Plan I have reviewed the history and physical and performed a pertinent physical examination on my patient. No changes have occurred unless specified. Time Spent With Patient Time: Total time managing care of this patient today ____ minutes.
[2023-02-21 06:25] VITALS: BP 129/62; PULSE 56; RESP 16; TEMP 35.8; O2SAT 99
[2023-02-21] MEDS: Tetracaine HCl/PF 0.5% Oph Sol 4 ML DROPS 1 DROP EYE-RIGHT (06:28)
[2023-02-21] MEDS: Cyclopentolate 1 % Ophth Sol 2 ML DRPBTL 1 DROP EYE-RIGHT ×3 (06:31→06:43)
[2023-02-21] MEDS: Tropicamide 1 % Ophth Sol 3 ML BTL 1 DROP EYE-RIGHT ×3 (06:33→06:43)
[2023-02-21] MEDS: Ketorolac Tromethamine 0.5% Op 5 ML DROPS 1 DROP EYE-RIGHT ×3 (06:34→06:44)
[2023-02-21] MEDS: Phenylephrine HCL 2.5% Oph SoL 2 ML BOTTLE 1 DROP EYE-RIGHT ×3 (06:36→06:45)
[2023-02-21] MEDS: Lactated Ringers 500 ML 50 ML IV (06:46)
--- NOTE | 2023-02-21 07:11 | HO.ANESPROP2 ---
[facility] Active Problems Active Problems: All Active Problems (Updated 02/02/23 @ 13:01 by Jina Lopez MD) Preoperative examination (Acute) Hypotension (arterial) (Acute) Encounter for monitoring alendronate therapy (Acute) Osteopenia of left femoral neck (Acute) Palpable thyroid (Acute) Irritable bowel syndrome (Acute) Hearing loss, bilateral (Acute) Seasonal allergic rhinitis (Acute) Impaired fasting glucose (Acute) Dyslipidemia (Acute) Acquired hypothyroidism (Acute) Past Medical History Medical History Preoperative examination Encounter for monitoring alendronate therapy Osteopenia of left femoral neck Recurrent syncope Hx of syncope Palpable thyroid Postmenopause Irritable bowel syndrome Osteoporosis Hearing loss, bilateral Seasonal allergic rhinitis Impaired fasting glucose Dyslipidemia Acquired hypothyroidism Family History Family History Mother Breast cancer CAD (coronary artery disease) CVD (cardiovascular disease) Father Medical history non-contributory Brother No problems noted. Family history of problems with anesthesia: No Surgical History Surgical History Hx of arthroscopy History of carpal tunnel surgery of right wrist Hx of dilation and curettage Hx of nasal septoplasty Hx of cholecystectomy History of colonoscopy History of Problems with Anesthesia: No Social History Social History Household Members Other:: father Housing: House Are you a primary care professionals to a significant other at home: No Do you presently have visiting nurse or other home services: No Alcohol intake: never Patient Tobacco Use Status: Never used Tobacco e-Cigarette/Vaping Use: Never Used Use of substances other than those prescribed or required for medical reasons: No Have you been hit, kicked, punched, or otherwise hurt by someone within the past year? If so, by whom?: No Are you DNR?: No Advance Directives: Yes ([facility] in [facility], father & brother are primary contacts) Advance Directives Information Provided: Yes Advance Directives on File: Yes Advance Directives Date on File: 03/11/22 Recently lost weight without trying: No Eating poorly because of decreased appetite: No Nutrition Risks: No Nutritional Risk Poor oral hygiene: No (upper partial) Current occupational status: retired Cognitive needs: No Hearing needs: Yes Vision needs: Yes Meds Allergies Allergy/AdvReac Type Severity Reaction Status Date / Time Chocolate Allergy Unknown Hives Verified 02/02/23 12:26 Penicillins [PENICILLINS] Allergy Unknown RASH Verified 02/02/23 12:26 rsv vaccine Allergy Intermediate Diffuse Uncoded 02/02/23 12:44 rash Active Medications: Current Medications Lactated Ringer's (Lr) 500 mls @ 50 mls/hr IV .Q10H CELY Stop: 02/21/23 16:14 Last Admin: 02/21/23 06:46 Dose: 50 mls/hr Povidone Iodine (Povidone Iodine 5 % Ophth Soln 30 Ml Bottle) 1 appl EYE-RIGHT PREOP PRN PRN Reason: Pre-Op Surgical Implant Prophy Home Medications Medication Instructions Recorded Confirmed Last Taken Type ascorbate calcium (vitamin C) 500 500 mg PO DAILY 07/15/20 02/02/23 Unknown History mg tablet calcium carbonate 600 mg calcium 600 mg PO DAILY 07/15/20 02/02/23 Unknown History (1,500 mg) tablet cholecalciferol (vitamin D3) 25 25 mcg PO DAILY 07/15/20 02/02/23 Unknown History mcg (1,000 unit) capsule fluticasone propionate 50 1 spray intranasal DAILY 07/15/20 02/02/23 Unknown History mcg/actuation nasal spray,suspension (Flonase Allergy Relief) folic acid 400 mcg tablet 0.4 mg PO DAILY 07/15/20 02/02/23 Unknown History loratadine 10 mg tablet 10 mg PO DAILY 07/15/20 02/02/23 Unknown History methylcellulose (laxative) 500 mg 500 mg PO DAILY 07/15/20 02/02/23 Unknown History tablet (Citrucel) sodium chloride 0.65 % nasal spray 1 spray intranasal BID PRN nasal 07/15/20 02/02/23 Unknown History aerosol (Saline Mist) cogestion Exam Exam Date and Time: February 21, 2023710 Height,Weight and Vital Signs: Height 5 ft Weight 57.153 kg Last Vital Signs Temp 96.4 F L 02/21/23 06:25 Pulse 56 02/21/23 06:25 Resp 16 02/21/23 06:25 BP 129/62 02/21/23 06:25 Pulse Ox 99 02/21/23 06:25 O2 Del Method Room Air 02/21/23 06:25 Airway Mallampati Class: II TM Dist: >3cm Neck ROM: Full Heart: fatou Lungs: cta Assessment and Plan Assessment Anesthesia Assessment: Anesthesia Plan Discussed and Chart Reviewed Final Anesthetic Review Family History of Problems with Anesthesia: No History of Problems with Anesthesia: No NPO: Yes ASA Class: III Final Preanesthetic Review: No Changes in Pt Med Stat, Meds/Allgs Chart Reviewed and Consent Obtained/Reviewed Patient Risk: Intermediate Procedure Risk: Intermediate Anesthetic Plan Anesthetic Plan: MAC: Disposition: Standard PACU
--- NOTE | 2023-02-21 07:52 | HO.PNOPHT ---
Ophthalmology Procedure Procedure Date of Service: 02/21/23 Ophthalmology Viscoelastic: Healon Duet Dual Pack Pro Ophthalmology Lenses: TECNIS [id number] (18.5) Procedure Notes: PREOPERATIVE DIAGNOSIS: Decreased visual acuity right eye secondary to cataract POSTOPERATIVE DIAGNOSIS: Same PROCEDURE: Right cataract extraction with intraocular lens insertion SURGEON: James Owens M.D. ANESTHESIA: Topical/MAC ESTIMATED BLOOD LOSS: None COMPLICATIONS: None After obtaining informed consent, the patient was brought to the operating room suite and placed in the supine position. After adequate sedation per anesthesia, topical drops of Tetracaine were given to the right eye. The eye was then prepped and draped in the usual sterile fashion. The operating room microscope was then positioned over the operative eye and a lid speculum placed. A paracentesis was created. Viscoelastic was then instilled into the anterior chamber. A three plane incision was then created temporally, utilizing a 2.85 mm keratome. Capsulotomy forceps were then utilized to create a circular tear capsulotomy. Hydrodissection and hydrodelineation were carried out until adequate mobilization of the nucleus occurred. Phacoemulsification was then utilized to remove the dense central nucleus followed by removal of the cortical material utilizing the automated aspiration irrigation unit. Viscoelastic was instilled into the posterior capsular bag followed by placement of a posterior chamber intraocular lens without difficulty. The residual Viscoelastic was then removed utilizing the automated IA machine. The wound was checked and found to be watertight. The patient tolerated the procedure well and the lid speculum was removed. Intracameral injection of Vigamox 0.1 mL followed by a subtenon injection of Kenalog-40 0.2 mL were administered. The patient will be seen in the a.m.
[2023-02-21 08:08] VITALS: BP 148/64; PULSE 55; RESP 16; TEMP 36.1; O2SAT 99
== END 2023-02-21 08:12 | disposition home or self-care (01) ==
PROVIDERS: PCP Internal Medicine; Visit Provider Ophthalmology
PROC: (CPT 66985; principal; 2023-02-21 08:00)
DX: H25.11 Age-related nuclear cataract, right eye (principal); H54.7 Unspecified visual loss; I95.9 Hypotension, unspecified; E03.9 Hypothyroidism, unspecified; E78.5 Hyperlipidemia, unspecified; M81.0 Age-related osteoporosis without current pathological fracture; H91.93 Unspecified hearing loss, bilateral; J30.2 Other seasonal allergic rhinitis; Z79.51 Long term (current) use of inhaled steroids; R73.01 Impaired fasting glucose; Z79.899 Other long term (current) drug therapy; Z88.0 Allergy status to penicillin; Z88.7 Allergy status to serum and vaccine
CPT/HCPCS: 66984; J2250; J3301; V2632

== ENCOUNTER 2023-05-31 07:27 | Outpatient (REF) | payer MEDICARE, SELFPAY ==
--- NOTE | ~2023-05-31 | MM_ITS ---
EXAMINATION: BONE DENSITOMETRY CLINICAL INDICATION: Other specified disorders of bone density and structure. COMPARISON: Previous BD dated 04/21/2021 and baseline BD dated 11/28/2006. TECHNIQUE: Using a [employer] DXA System (software version: 13.1) manufactured by [employer], dual-energy x-ray absorptiometry was performed of the lumbar spine and left hip. The images are of good technical quality. Summary results are attached. FINDINGS: LEFT FEMUR, NECK: Current: BMD 0.618 g/cm2, Z-score -1.2, T-score -3.0, osteoporosis. Prior: BMD 0.810 g/cm2. Baseline: BMD 0.971 g/cm2. LEFT FEMUR, TOTAL: Current: BMD 0.653 g/cm2, Z-score -1.2, T-score -2.8, osteoporosis, 24.1% decrease from previous, 35.9% decrease from baseline (<5% change is not significant). Prior: BMD 0.860 g/cm2. Baseline: BMD 1.019 g/cm2. AP SPINE L1-L4: Current: BMD 1.059 g/cm2, Z-score 0.9, T-score -1.0, normal, 0.2% decrease from previous, 15.2% decrease from baseline (<5% change is not significant). Prior: BMD 1.061 g/cm2. Baseline: BMD 1.249 g/cm2. IDENTIFIED RISK FACTORS: Menopause, osteoporosis, rheumatoid arthritis. HISTORY OF FRACTURE: None listed. MEDICATIONS: Calcium supplements or multivitamin, vitamin D, bisphosphonate. MM/XR DEXA axial skeleton IMPRESSION: 1. DIAGNOSIS: Osteoporosis based on the lowest T-score value of -3.0 in the femoral neck applying World Health Organization criteria. 2. 10-YEAR FRACTURE RISK PREDICTION, FRAX: According to the guidelines, FRAX calculation should only be performed on patients in the osteopenia bone density category. Therefore, FRAX was not performed on this patient. 3. Treatment Recommendations: NOF guidelines recommend consideration for treatment in postmenopausal women and men age 50 and older presenting with the following: -A hip or vertebral (clinical or morphometric) fracture. -T-score less than or equal to -2.5 at the femoral neck or spine after appropriate evaluation to exclude secondary causes. -Low bone mass at the hip or spine and a 10-year fracture probability by FRAX of greater than or equal to 3% for hip fracture or greater than or equal to 20% for major osteoporotic fracture based on the [place] adapted WHO algorithm. 4. Other Recommendations: All treatment decisions require clinical judgment and consideration of individual patient factors, including patient preferences, comorbidities, previous drug use, risk factors not captured in the FRAX model (e.g. frailty, falls, vitamin D deficiency, increased bone turnover, interval significant decline in bone density) and possible under or overestimation of fracture risk by FRAX. Additional medical evaluation for secondary cause of low bone mineral density may be appropriate. FUTURE SCAN RECOMMENDATION: People with diagnosed cases of osteoporosis or at high risk for fracture should have regular bone mineral density tests. For patients eligible for Medicare, routine testing is allowed once every 2 years. The testing frequency can be increased to one year for patients who have rapidly progressing disease, those who are receiving or discontinuing medical therapy to restore bone mass, or have additional risk factors.
== END 2023-05-31 07:28 | disposition home or self-care (01) ==
LOC: HO.MAMMO 07:27
PROVIDERS: PCP Internal Medicine; Visit Provider Internal Medicine
DX: Z12.31 Encounter for screening mammogram for malignant neoplasm of breast (principal); Z13.820 Encounter for screening for osteoporosis; M85.852 Other specified disorders of bone density and structure, left thigh; Z79.83 Long term (current) use of bisphosphonates; Z78.0 Asymptomatic menopausal state
CPT/HCPCS: 77063; 77067; 77080

== ENCOUNTER → 2023-05-31 08:15 | Outpatient (BNV) | payer MEDICARE, SELFPAY | PROVIDERS: PCP Internal Medicine; Visit Provider Radiology Diagnostic Radiology | DX: Z12.31 Encounter for screening mammogram for malignant neoplasm of breast (principal) | CPT/HCPCS: 77063; 77067 ==

== ENCOUNTER 2023-06-08 06:29 | Outpatient (REF) | payer MEDICARE, SELFPAY ==
[2023-06-08 12:01] LABS: Estimated Average Glucose 100 mg/dL; Hemoglobin A1c % 5.1 % (<6.0)
[2023-06-08 12:15] LABS: Alanine Aminotransferase 27 U/L (0-31); Anion Gap 12 (12-20); Aspartate Amino Transferase 29 U/L (5-31); Blood Urea Nitrogen 18 mg/dL (9-16); Calcium 9.2 mg/dL (8.4-10.2); Carbon Dioxide 26 mmol/L (22-29); Chloride 106 mmol/L (96-108); Cholesterol 205 mg/dL (<200); Estimated Glomerular Filt Rate > 60; Glucose Fasting 83 mg/dL (60-99); HDL Cholesterol 82 mg/dL (>40); LDL Cholesterol Calculated 111 mg/dL (<100); Potassium 3.8 mmol/L (3.3-5.1); Sodium 140 mmol/L (135-145); Thyroid Stimulating Hormone 0.74 uIU/mL (0.32-4.0); Triglycerides 61 mg/dL (<150); Vitamin D 25-OH Total 77.2 ng/mL (>30)
== END 2023-06-08 06:30 | disposition home or self-care (01) ==
LOC: HO.HMGCLDS 06:29
PROVIDERS: PCP Internal Medicine; Visit Provider Internal Medicine
DX: M85.852 Other specified disorders of bone density and structure, left thigh (principal); I95.9 Hypotension, unspecified; R73.01 Impaired fasting glucose; E78.5 Hyperlipidemia, unspecified; E03.9 Hypothyroidism, unspecified; Z78.0 Asymptomatic menopausal state; Z51.81 Encounter for therapeutic drug level monitoring; Z79.83 Long term (current) use of bisphosphonates
CPT/HCPCS: 36415; 80048; 80061; 82306; 83036; 84443; 84450; 84460

== ENCOUNTER 2023-06-15 09:11 | Outpatient (AMB) | payer MEDICARE, SELFPAY ==
--- NOTE | 2023-06-15 09:49 | A.OFFPC_ITS ---
Vital Signs 06/15/23 09:53 Height 5 ft Weight 127 lb BMI 24.8 BP 100/70 Blood Pressure Location Rt brachial Position Sitting Pulse 59 Pulse Source Pulse Oximeter Pulse Oximetry (%) 99 Oxygen Delivery Method Room Air Intake Visit Reasons: Annual Physical Intake Note: Pt is here today for her PE: mammogram 05/31/23, bone density scan 05/31/23, colonscopy 02/06/20 Allergies Chocolate Allergy (Unknown, Verified 12/16/23 04:20) Hives Penicillins [PENICILLINS] Allergy (Unknown, Verified 12/16/23 04:20) RASH rsv vaccine Allergy (Intermediate, Uncoded 12/16/23 04:20) Diffuse rash Medication List - Last Reconciled 06/15/23 by Jina Lopez MD alendronate 70 mg PO QWEEK 90 days ascorbate calcium (vitamin C) 500 mg PO DAILY calcium carbonate 600 mg PO DAILY cholecalciferol (vitamin D3) 25 mcg PO DAILY fluticasone propionate 50 mcg/actuation (Flonase Allergy Relief) 1 spray intranasal DAILY folic acid 0.4 mg PO DAILY glucosamine HCl 1,000 mg (2 x 500 mg) PO DAILY levothyroxine 75 mcg PO .Every other morning levothyroxine 50 mcg PO .Every other morning loratadine 10 mg PO DAILY methylcellulose (laxative) (Citrucel) 500 mg PO DAILY midodrine 5 mg PO TID 90 days simvastatin 10 mg PO Q OTHER DAY sodium chloride 0.65% (Saline Mist) 1 spray intranasal BID PRN Tobacco use date assessed: 06/15/23 Fall risk assessment: No Falls in past year Last assessed Fall Risk: 06/15/23 Dental Screening Dental Screen Date: 06/15/23 Did you have a dental visit in the last 12 months?: Yes Did you have a dental problem in the last 6 months where you did not have access to dental care?: No Was dental information given to patient?: Patient has dentist HPI Annual Physical HPI Details 68-year-old lady here today for physical exam. She is up-to-date with her screening mammogram , last done05/31/23, together with a bone density scan. , latter showing osteoporosis in both lymph left femoral neck and left femur. She had a screening colonoscopy done by Dr. Li in 2019 which showed presence of internal hemorrhoids and diverticulosis. She has hypothyroidism, with latest TSH within normal limits. Currently on levothyroxine 75 mcg daily. Latest fasting lipids are within normal limits currently on simvastatin 10 mg every other for hyperlipidemia. Has prediabetes with normal hemoglobin A1c results on latest labs. 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 Preoperative examination Encounter for monitoring alendronate therapy Osteopenia of left femoral neck Recurrent syncope Hx of syncope Palpable thyroid Postmenopause Irritable bowel syndrome Osteoporosis Hearing loss, bilateral Seasonal allergic rhinitis Impaired fasting glucose Dyslipidemia Acquired hypothyroidism Surgical History Hx of arthroscopy History of carpal tunnel surgery of right wrist Hx of dilation and curettage Hx of nasal septoplasty Hx of cholecystectomy History of colonoscopy Family History Mother Breast cancer CAD (coronary artery disease) CVD (cardiovascular disease) Father Medical history non-contributory Brother No problems noted. Social History Household Members Other:: father Housing: House Are you a primary infant childcare provider to a significant other at home: No Do you presently have visiting nurse or other home services: No Alcohol intake: never Patient Tobacco Use Status: Never used Tobacco e-Cigarette/Vaping Use: Never Used Advance Directives Date on File: 03/11/22 Current occupational status: retired Cognitive needs: No Hearing needs: Yes Vision needs: Yes Questionnaire PHQ-9 Over the last 2 weeks, how often have you been bothered by any of the following problems? 1. Little interest or pleasure in doing things: not at all 2. Feeling down, depressed, or hopeless: not at all 3. Trouble falling or staying asleep, or sleeping too much: not at all 4. Feeling tired or having little energy: not at all 5. Poor appetite or overeating: not at all 6. Feeling bad about yourself - or that you are a failure or have let yourself or your family down: not at all 7. Trouble concentrating on things, such as reading the newspaper or watching television: not at all 8. Moving or speaking so slowly that other people could have noticed. Or the opposite - being so fidgety or restless that you have been moving around a lot more than usual: not at all 9. Thoughts that you would be better off or of hurting yourself in some way: not at all Total score: 0 Depression Screening Interpretation: Negative Depression Screening Done: Yes 63765 - PHQ-9 Billing: Yes Source: Developed by Drs. Devon Whitten, Monica lBue, Kane Ch and colleagues, with an educational jerman from [employer]. Thrive Questionnaire Date Thrive assessed: 06/15/23 I am a: Patient What is your living situation today?: I have a steady place to live Within the past 12 months, did the food you bought not last and you didn't have the money to get more?: Never true Within the past 12 months, did you worry whether your food would run out before you got money to buy more?: Never true Do you have trouble paying for medicines?: No Do you have trouble getting transportation to medical appointments?: No Do you have trouble paying your heating and electricity bill?: No Do you have trouble taking care of your child, family member or friend?: No Do you have trouble with day-to-day activities such as bathing, preparing meals, shopping, managing finances, etc.?: No Are you currently unemployed and looking for a job?: No Are you interested in more education?: No THRIVE Score: 0 AUDIT C Alcohol Use Questionnaire (AUDIT-C) 1. How often do you have a drink containing alcohol?: Never 3. How often do you have six or more drinks on one occasion?: Never Total Score: 0 KITTY-7 AMB Questionnaire KITTY-7 Date KITTY - 7 assessed: 06/15/23 Feeling nervous, anxious, or on edge: 0 = Not at all Not being able to stop or control worryin = Not at all Worrying too much about different things: 0 = Not at all Trouble relaxin = Not at all Being so restless that it is hard to sit still: 0 = Not at all Becoming easily annoyed or irritable: 0 = Not at all Feeling afraid as if something awful might happen: 0 = Not at all Total KITTY-7 score (0-4 normal; 5-9 mild; 10-14 moderate; 15-21 severe): 0 Source: Developed by Drs. Devon Whitten, Monica Blue, Kane Ch and colleagues, with an educational jerman from [employer]. KITTY-7 Assessment Billing KITTY-7 Assessment Tool: KITTY-7 Assessment 54339 Review of Systems Const Reports no additional complaints Eyes Details: Goes to [facility] and had cataract surgery with Dr. Owens Denies no additional complaints ENT Details: Wears hearing aid Reports hearing loss Card Reports no additional complaints, Denies acrocyanosis, Denies chest pain, Denies leg edema, Denies lightheadedness, Denies palpitations and Denies dyspnea Resp Denies no additional complaints and Denies dyspnea GI Denies no additional complaints Reports no additional complaints Musc Reports no additional complaints (No history of fractures) Skin/Breast Reports system reviewed and no additional complaints, except as documented Neuro Denies Abnormal speech present Psych Reports no additional complaints and Reports as per HPI Endo Reports no additional complaints, Reports as per HPI and Denies palpitations Kaveh/Lymph Reports no additional complaints and Reports as per HPI Aller/Immun Reports no additional complaints and Reports as per HPI Physical exam (Primary Care) Vital Signs: Last Vital Signs Pulse 59 06/15/23 09:53 BP 100/70 06/15/23 09:53 Pulse Ox 99 06/15/23 09:53 Oxygen Delivery Method Room Air 06/15/23 09:53 BMI result Body Mass Index 24.8 Tobacco/Smoking Status: Tobacco use Status Tobacco use date assessed 06/15/23 06/15/23 09:51 Patient Tobacco Use Status Never used Tobacco 06/15/23 09:51 e-Cigarette/Vaping Use Never Used 06/15/23 09:51 PHQ-9: PHQ-9 Score PHQ-9: Total score 0 06/15/23 10:52 Depression Screening Interpretation: Negative Thrive Assessment: Date of Thrive Assessment Date Thrive assessed 06/15/23 06/15/23 09:58 Const Other: Alert oriented x3, no acute cardiorespiratory distress noted, ambulatory with normal gait Orientation/consciousness: patient oriented x3 HENMT Ears: hearing grossly impaired bilaterally (Wears hearing aids) General nose exam: Normal external nose present Face and sinus: Yes face symmetric Mouth: Normal oral and palatal mucosa present, oropharynx normal and moist mucous membranes Eyes General: appearance normal, both eyes and all related structures Neck Neck: Yes full ROM, Yes no lymphadenopathy, Yes no meningeal signs and Yes supple Thyroid: Thyroid normal Resp Auscultation: clear to auscultation bilaterally Cardio Other: S1-S2 present regular rate and rhythm Bruits: no abdominal aortic bruits GI Inspection: Yes normal to inspection Palpation (GI): No Abdominal aortic bruit present, Soft to palpation, nontender and no guarding Auscultation: normal bowel sounds General: Yes no CVA tenderness Back/Spine/Pelvis Back: no CVA tenderness and No back tenderness Skin General skin exam: no rashes or lesions noted Neuro General: patient oriented x3, gait normal, tone normal, moves all extremities, Normal light touch and pain sensation, no meningeal signs, no focal motor deficits and CN's II-XI intact bilaterally Speech: No Abnormal speech present Extrem General: Yes full ROM, Yes no joint enlargement, Yes no pedal edema and Yes normal gait Psych Appearance: grossly normal and well kempt Mental Status: mental status grossly normal Speech and movement: Normal speech and movement present Affect: normal affect Attitude: cooperative Thought process: Normal thought process present Results Reviewed Results Reviewed: Laboratory Tests 06/08/23 06:38 Estimat Average Glucose 100 Hemoglobin A1c % 5.1 RUN: 06/15/23 1032 PAGE 1 [facility] [address] [place] [id number] Patient Account Analyst: Beto Hobbs M.D. Specimen Inquiry Name: Candy Turpin Age/Sex: 68/F : 1955 Unit#: [id number] Attend Dr: Jina Lopez MD Re06/08/23 Status: DEP REF Location: [facility] Disch: SPEC : [id number] YEN: 06/08/23 STATUS: COMP REQ : [id number] RECD: 06/08/23 [facility] DR: Jina Lopez MD COMP: 06/08/23 ENTERED: 06/08/[address] [facility] [address]: ORDERED: Met Prof Fast, AST, ALT, Lipid Panel, Vitamin D 25-OH, TSH Test Result Flag Reference Sodium 140 135-145 mmol/L Potassium 3.8 3.3-5.1 mmol/L CL 106 96-108 mmol/L CO2 26 22-29 mmol/L Gap 12 12-20 BUN 18 H 9-16 mg/dL Creat 0.69 0.5-1.4 mg/dL EGFR > 60 NOTE: For -Namibian individuals, multiply the result by 1.210. Chronic Kidney Disease: Estimated GFR < 60 mL/min/1.73m2 Severe Kidney Disease: Estimated GFR < 15 mL/min/1.73m2 FBS 83 60-99 mg/dL CA 9.2 8.4-10.2 mg/dL AST (GOT) 29 5-31 U/L ALT (GPT) 27 0-31 U/L Triglyceride 61 <150 mg/dL Desirable Triglyceride: less than 150 mg/dL Borderline High Triglyceride 150-199 mg/dL High Triglyceride: 200-499 mg/dL Very High Triglyceride: greater than or equal to 5OO mg/dL Cholesterol 205 H <200 mg/dL Desirable Cholesterol: less than 200 mg/dL Borderline High Cholesterol: 200-239 mg/dL High Cholesterol: greater than 239 mg/dL LDL Calculated 111 H <100 mg/dL Desirable LDL: less than 100 mg/dL Near Optimal/Above Optimal LDL: 110-129 mg/dL Borderline High LDL: 130-159 mg/dL High LDL: 160-189 mg/dL Very High LDL: greater than or equal to 190 mg/dL HDL 82 >40 mg/dL Desirable HDL: greater than 40 mg/dL Note: This HDL assay may give artificially low results in patients with liver disease. Vit D 25-OH Tot 77.2 >30 ng/mL Health Based Reference Values* < 20 ng/mL Deficient 20-30 ng/mL Insufficient > 30 ng/mL Sufficient *Cristina GOLDSTEIN. N Engl J Med. 2007;357:266-280 Care must be taken in interpreting Vitamin D results from different laboratories and methodologies. Published data demonstrated that results from patients undergoing hemodialysis may show a negative bias when tested with various automated 25-OH vitamin D assays when compared to LC-MS/MS. When testing samples from patients whose predominant form of Vitamin D is Vitamin D2, such as patients receiving Vitamin D2 supplementation, results that are subtherapeutic should be confirmed with another method such as LC-MS/MS. TSH 3rd Gen. 0.74 0.32-4.0 uIU/mL TSH 3rd Generation ([facility]) Assessment and Plan Assessment & Plan (1) Annual visit for general adult medical examination with abnormal findings: Code(s): Z00.01 - Encounter for general adult medical examination with abnormal findings Plan: Reviewed recent fasting lab results with patient, continue with regular dental visit every 6 months and regular eye exams, at least every 2 years. Continue taking vitamin-D 3 supplement calcium supplements, in addition to weight-bearing exercises to help maintain good muscle tone and weight control. Instructed to do self-breast exam, and r and is up-to-date with her yearly mammogram, and bone density scan. 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 Referred to rheumatology for further evaluation management, discontinue alendronate (3) Hearing loss, bilateral: Code(s): H91.93 - Unspecified hearing loss, bilateral Plan: Currently has hearing aids let (4) Dyslipidemia: Code(s): E78.5 - Hyperlipidemia, unspecified Plan: Continued on simvastatin 10 mg at bedtime reinforced importance of following low-cholesterol diet and getting regular exercise (5) Acquired hypothyroidism: Code(s): E03.9 - Hypothyroidism, unspecified Plan: Thyroid levels are within normal limits, continue with current dose of levothyroxine (6) Impaired fasting glucose: Code(s): R73.01 - Impaired fasting glucose Plan: Your previous fasting blood sugars were elevated above 100 mg/dL. Impaired glucose metabolism increases the risk for developing diabetes mellitus type 2, as well as heart attack and stroke later on. Lifestyle changes that promotes weight loss, healthy eating habits, and regular exercise are important, and can prevent the progression to diabetes (7) Seasonal allergic rhinitis: Code(s): J30.2 - Other seasonal allergic rhinitis Qualifiers: Allergic rhinitis trigger: unspecified Qualified Code(s): J30.2 - Other seasonal allergic rhinitis Plan: Takes loratadine as needed Flonase nasal spray continue with vitamin-C supple ment Orders: Referrals Rheumatology Referral M81.0 - Age-related osteoporosis without current pathological fracture Medications: Changed From simvastatin 10 mg PO Q OTHER DAY 45 tabs 1RF E78.5 - Hyperlipidemia, unspecified To simvastatin 10 mg PO DAILY 90 tabs 3RF 3 months E78.5 - Hyperlipidemia, unspecified Coding Level of Care Code Est Pt Prev Care >65y(03939) Diagnoses Annual visit for general adult medical examination with abnormal findings Z00.01 Osteoporosis of femur without pathological fracture M81.0 Hearing loss, bilateral H91.93 Dyslipidemia E78.5 Acquired hypothyroidism E03.9 Impaired fasting glucose R73.01 Seasonal allergic rhinitis, unspecified trigger J30.2 Allergic rhinitis trigger: unspecified Additional Codes KITTY-7 Assessment Billing - KITTY-7 Assessment Tool: KITTY-7 Assessment 11579 ([id number])
[2023-06-15 09:53] VITALS: BP 100/70; PULSE 59; O2SAT 99; BMI 24.8
== END 2023-06-15 12:40 | disposition home or self-care (01) ==
PROVIDERS: PCP Internal Medicine; Visit Provider Internal Medicine
DX: Z00.00 Encounter for general adult medical examination without abnormal findings (principal); M81.0 Age-related osteoporosis without current pathological fracture; H91.93 Unspecified hearing loss, bilateral; E78.5 Hyperlipidemia, unspecified; E03.9 Hypothyroidism, unspecified; R73.01 Impaired fasting glucose; J30.2 Other seasonal allergic rhinitis
CPT/HCPCS: 99397

== ENCOUNTER 2023-08-03 08:27 | Outpatient (REF) | payer MEDICARE, SELFPAY ==
[2023-08-03 09:58] LABS: Alanine Aminotransferase 22 U/L (0-31); Albumin Level 4.2 g/dL (3.5-5.0); Alkaline Phosphatase 81 U/L (39-117); Anion Gap 12 (12-20); Aspartate Amino Transferase 22 U/L (5-31); Bilirubin Total 0.4 mg/dL (0.0-1.0); Blood Urea Nitrogen 19 mg/dL (9-16); Calcium 9.2 mg/dL (8.4-10.2); Carbon Dioxide 30 mmol/L (22-29); Chloride 104 mmol/L (96-108); Estimated Glomerular Filt Rate > 60; Glucose Random 82 mg/dL (60-115); Magnesium 2.1 mg/dL (1.6-2.6); Phosphorus 3.7 mg/dL (2.7-4.5); Potassium 3.8 mmol/L (3.3-5.1); Sodium 142 mmol/L (135-145)
[2023-08-04 22:49] LABS: Prot Elec - Albumin 4.2 g/dL (3.8-4.8); Prot Elec - Alpha1 0.2 g/dL (0.2-0.3); Prot Elec - Alpha2 0.7 g/dL (0.5-0.9); Prot Elec - Beta 1 0.5 g/dL (0.4-0.6); Prot Elec - Beta 2 0.3 g/dL (0.2-0.5); Prot Elec - Gamma 0.9 g/dL (0.8-1.7); Prot Elec - Total Protein 6.8 g/dL (6.1-8.1)
== END 2023-08-03 08:28 | disposition home or self-care (01) ==
LOC: HO.LAB 08:27
PROVIDERS: PCP Internal Medicine; Visit Provider Student in an Organized Health Care Education/Training Program
DX: M81.0 Age-related osteoporosis without current pathological fracture (principal); R20.0 Anesthesia of skin
CPT/HCPCS: 36415; 80053; 83735; 83970; 84100; 84165; 99202

== ENCOUNTER 2023-08-03 08:27 | Outpatient (AMB) | payer MEDICARE, SELFPAY ==
--- NOTE | 2023-08-03 08:32 | A.OFFVIS_ITS ---
Intake Vital Signs 08/03/23 08:34 Height 5 ft Weight 126 lb 12.253 oz BMI 24.8 BP 130/70 Blood Pressure Location Lt brachial Position Sitting Pulse 69 Pulse Source Pulse Oximeter Temp 97.6 F Temp Source Skin Pulse Oximetry (%) 100 Oxygen Delivery Method Room Air Intake Visit Reasons: osteoporosis/CONFIRMED Intake Note: New patient, presents today for osteoporosis consult. Reports stiffness when prolonged sitting or standing. Has noticed shifting on to the right side when cooking. Administrative Supervisor Required: No Accompanied by: Self / Same As Patient Allergies Chocolate Allergy (Unknown, Verified 08/03/23 08:37) Hives Penicillins [PENICILLINS] Allergy (Unknown, Verified 08/03/23 08:37) RASH rsv vaccine Allergy (Intermediate, Uncoded 08/03/23 08:37) Diffuse rash Medication List - Last Reconciled 08/03/23 by Mark Anthony Olsen MD alendronate 70 mg PO QWEEK 90 days ascorbate calcium (vitamin C) 500 mg PO DAILY calcium carbonate 600 mg PO DAILY cholecalciferol (vitamin D3) 25 mcg PO DAILY fluticasone propionate 50 mcg/actuation (Flonase Allergy Relief) 1 spray intranasal DAILY folic acid 0.4 mg PO DAILY glucosamine HCl 1,000 mg (2 x 500 mg) PO DAILY levothyroxine 75 mcg PO .Every other morning levothyroxine 50 mcg PO .Every other morning loratadine 10 mg PO DAILY methylcellulose (laxative) (Citrucel) 500 mg PO DAILY midodrine 5 mg PO TID 90 days simvastatin 10 mg PO DAILY 3 months sodium chloride 0.65% (Saline Mist) 1 spray intranasal BID PRN HPI HPI Comments History of Present Illness Details 68-year-old female with osteoporosis is referred by her PCP for worsening osteoporosis. Patient had been on alendronate since 2019. Recent DEXA scan showed significantly worsening bone density. Patient states that does not recall any history of fractures. She stated that she was having falls recently, she was told that it was due to low blood pressure and she was started on midodrine with some improvement. She has not had any recent falls. Patient reached menopause at age 40-50. She does not have oophorectomy. She exercises for 50 minutes daily. She states that recently she has been having episodes of numbness on her left lower extremity as well as left lower extremity discomfort. 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 Preoperative examination Encounter for monitoring alendronate therapy Osteopenia of left femoral neck Recurrent syncope Hx of syncope Palpable thyroid Postmenopause Irritable bowel syndrome Osteoporosis Hearing loss, bilateral Seasonal allergic rhinitis Impaired fasting glucose Dyslipidemia Acquired hypothyroidism Surgical History Hx of arthroscopy History of carpal tunnel surgery of right wrist Hx of dilation and curettage Hx of nasal septoplasty Hx of cholecystectomy History of colonoscopy Family History Mother Breast cancer CAD (coronary artery disease) CVD (cardiovascular disease) Father Medical history non-contributory Brother No problems noted. Social History Household Members Other:: father Housing: House Are you a primary urgent care nurse practitioner to a significant other at home: No Do you presently have visiting nurse or other home services: No Alcohol intake: never Patient Tobacco Use Status: Never used Tobacco e-Cigarette/Vaping Use: Never Used Advance Directives Date on File: 03/11/22 Current occupational status: retired Cognitive needs: No Hearing needs: Yes Vision needs: Yes Female Reproductive History Menstrual Total pregnancies: 0 Review of Systems Const Denies weight loss Eyes Reports dry eyes ENT Reports hearing loss Musc Reports numbness and Reports stiffness Neuro Reports numbness Physical Exam Vital Signs: Last Vital Signs Temp 97.6 F 08/03/23 08:34 Pulse 69 08/03/23 08:34 BP 130/70 08/03/23 08:34 Pulse Ox 100 08/03/23 08:34 Oxygen Delivery Method Room Air 08/03/23 08:34 BMI result Body Mass Index 24.8 Const General: cooperative, healthy appearing and comfortable Nutritional Appearance: average body habitus Orientation/consciousness: patient oriented x3 Limitations: no limitations HEENT Head: Yes normocephalic and Yes atraumatic Mouth: moist mucous membranes Resp Effort & Inspection: normal respiratory effort and able to speak in complete sentences Auscultation: clear to auscultation bilaterally Cardio Rate: regular rate Rhythm: regular rhythm Skin General skin exam: no rashes or lesions noted Neuro General: patient oriented x3 Extrem Other: Mild left groin discomfort with left foot inversion flexion adduction and external rotation of left leg Mildly reduced sensation left lower extremity Assessment & Plan Assessment & Plan (1) 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 Patient took alendronate regularly from 2018 to 06/2023. Her bone density scan showed worsening especially at the hip. Will order labs to evaluate for causes of secondary osteoporosis. Patient will likely need more potent therapy. Discussed Prolia. Patient will think about it. Follow-up in about 4 weeks (2) Numbness of left lower extremity: Code(s): R20.0 - Anesthesia of skin Plan: Follow-up with PCP. Consider EMG/NCV Plan I spent 46 minutes reviewing patient's chart, evaluating patient, ordering diagnostic workup, counseling patient and documenting in the chart Orders: Orders Comprehensive Met. Panel Today M81.0 - Age-related osteoporosis without current pathological fracture Parathyroid Hormone Intact Today M81.0 - Age-related osteoporosis without current pathological fracture Magnesium Today M81.0 - Age-related osteoporosis without current pathological fracture Other Ref Test - Misc Today M81.0 - Age-related osteoporosis without current pathological fracture Phosphorus Today M81.0 - Age-related osteoporosis without current pathological fracture Protein Electrophoresis, Serum Today M81.0 - Age-related osteoporosis without current pathological fracture Coding Level of Care Code New Pt Level 4 (55815) Diagnoses Osteoporosis of femur without pathological fracture M81.0 Numbness of left lower extremity R20.0
[2023-08-03 08:34] VITALS: BP 130/70; PULSE 69; TEMP 36.4; O2SAT 100; BMI 24.8
== END 2023-08-03 08:55 | disposition home or self-care (01) ==
PROVIDERS: PCP Internal Medicine; Visit Provider Student in an Organized Health Care Education/Training Program
DX: M81.0 Age-related osteoporosis without current pathological fracture (principal); R20.0 Anesthesia of skin
CPT/HCPCS: 99204

== ENCOUNTER 2023-09-06 09:18 | Outpatient (AMB) | payer MEDICARE, SELFPAY ==
--- NOTE | 2023-09-06 09:29 | A.OFFVIS_ITS ---
Vital Signs 09/06/23 09:32 Height 4 ft 11.21 in Weight 126 lb 5.198 oz BMI 25.3 BP 102/64 Blood Pressure Location Rt brachial Position Sitting Pulse 66 Pulse Source Pulse Oximeter Pulse Oximetry (%) 99 Oxygen Delivery Method Room Air Intake Visit Reasons: osteoporosis/prolia Intake Note: Patient last seen 08/03/23 presents today for follow up and test results. [employer] Supervisor Required: No Accompanied by: Self / Same As Patient Allergies Chocolate Allergy (Unknown, Verified 09/06/23 09:34) Hives Penicillins [PENICILLINS] Allergy (Unknown, Verified 09/06/23 09:34) RASH rsv vaccine Allergy (Intermediate, Uncoded 09/06/23 09:34) Diffuse rash Medication List - Last Reconciled 09/06/23 by Mark Anthony Olsen MD ascorbate calcium (vitamin C) 500 mg PO DAILY calcium carbonate 600 mg PO DAILY cholecalciferol (vitamin D3) 25 mcg PO DAILY fluticasone propionate 50 mcg/actuation (Flonase Allergy Relief) 1 spray intranasal DAILY folic acid 0.4 mg PO DAILY glucosamine HCl 1,000 mg (2 x 500 mg) PO DAILY levothyroxine 75 mcg PO .Every other morning levothyroxine 50 mcg PO .Every other morning loratadine 10 mg PO DAILY methylcellulose (laxative) (Citrucel) 500 mg PO DAILY midodrine 5 mg PO TID 90 days simvastatin 10 mg PO DAILY 3 months sodium chloride 0.65% (Saline Mist) 1 spray intranasal BID PRN HPI Comments Details: 68-year-old female with osteoporosis returns for follow-up. After completion of her diagnostic workup. Continues to feel about the same. Has no complaints today Initial history: 68-year-old female with osteoporosis is referred by her PCP for worsening osteoporosis. Patient had been on alendronate since 2019. Recent DEXA scan showed significantly worsening bone density. Patient states that does not recall any history of fractures. She stated that she was having falls recently, she was told that it was due to low blood pressure and she was started on midodrine with some improvement. She has not had any recent falls. Patient reached menopause at age 40-50. She does not have oophorectomy. She exercises for 50 minutes daily. She states that recently she has been having episodes of numbness on her left lower extremity as well as left lower extremity discomfort. [facility] Medical History Osteoporosis of femur without pathological fracture Preoperative examination Encounter for monitoring alendronate therapy Osteopenia of left femoral neck Recurrent syncope Hx of syncope Palpable thyroid Postmenopause Irritable bowel syndrome Osteoporosis Hearing loss, bilateral Seasonal allergic rhinitis Impaired fasting glucose Dyslipidemia Acquired hypothyroidism Surgical History Hx of arthroscopy History of carpal tunnel surgery of right wrist Hx of dilation and curettage Hx of nasal septoplasty Hx of cholecystectomy History of colonoscopy Family History Mother Breast cancer CAD (coronary artery disease) CVD (cardiovascular disease) Father Medical history non-contributory Brother No problems noted. Social History Household Members Other:: father Housing: House Are you a primary health care manager to a significant other at home: No Do you presently have visiting nurse or other home services: No Alcohol intake: never Patient Tobacco Use Status: Never used Tobacco e-Cigarette/Vaping Use: Never Used Advance Directives Date on File: 03/11/22 Current occupational status: retired Cognitive needs: No Hearing needs: Yes Vision needs: Yes Review of Systems Const Denies weight loss Musc Reports stiffness Physical Exam Vital Signs: Last Vital Signs Pulse 66 09/06/23 09:32 BP 102/64 09/06/23 09:32 Pulse Ox 99 09/06/23 09:32 Oxygen Delivery Method Room Air 09/06/23 09:32 BMI result Body Mass Index 25.3 Const General: cooperative, healthy appearing and comfortable Nutritional Appearance: average body habitus Orientation/consciousness: patient oriented x3 Limitations: no limitations HEENT Head: Yes normocephalic and Yes atraumatic Mouth: moist mucous membranes Resp Effort & Inspection: normal respiratory effort and able to speak in complete sentences Neuro General: patient oriented x3 Assessment & Plan Assessment & Plan (1) Osteoporosis of femur without pathological fracture: Comment: DEXA 04/2021 L-spine T-score -1.0 Left femur neck T-score-1.6 Left femur total-1.2 DEXA 05/2023 L-spine T-score-1.0 Left femur neck-3.2 Left femur total -2.8 Alendronate 04/2019 -06/2023 Code(s): M81.0 - Age-related osteoporosis without current pathological fracture Category: Medical Plan: This is a 68-year-old female who presents for evaluation of osteoporosis. Patient took alendronate regularly from 2018 to 06/2023. Her bone density scan showed worsening especially at the hip. I ordered labs to evaluate for secondary causes of osteoporosis and it was unremarkable. Patient needs escalation of therapy. Discussed risks and benefits of Prolia. Patient agreed to proceed. Will start prior authorization for Prolia Follow-up in 6 months Plan I spent 16 minutes reviewing patient's chart, evaluating patient, counseling patient and documenting in the chart Coding Level of Care Code Est Pt Level 3 (45517) Diagnoses Osteoporosis of femur without pathological fracture M81.0
[2023-09-06 09:32] VITALS: BP 102/64; PULSE 66; O2SAT 99; BMI 25.3
== END 2023-09-06 10:01 | disposition home or self-care (01) ==
PROVIDERS: PCP Internal Medicine; Visit Provider Student in an Organized Health Care Education/Training Program
DX: M81.0 Age-related osteoporosis without current pathological fracture (principal)
CPT/HCPCS: 99213

== ENCOUNTER → 2023-09-06 09:18 | Outpatient (BNVA) | payer MEDICARE, SELFPAY | PROVIDERS: PCP Internal Medicine; Visit Provider Student in an Organized Health Care Education/Training Program | DX: M81.0 Age-related osteoporosis without current pathological fracture (principal) | CPT/HCPCS: 99212 ==

== ENCOUNTER 2023-09-14 11:09 | Outpatient (AMB) | payer MEDICARE, SELFPAY ==
--- NOTE | 2023-09-14 11:51 | AM.OFFVISNUR ---
Intake Vital Signs 09/14/23 12:02 BP 112/74 Blood Pressure Location Rt brachial Position Sitting Pulse 60 Pulse Source Pulse Oximeter Intake Visit Reasons: Prolia Injection Allergies Chocolate Allergy (Unknown, Verified 09/06/23 09:34) Hives Penicillins [PENICILLINS] Allergy (Unknown, Verified 09/06/23 09:34) RASH rsv vaccine Allergy (Intermediate, Uncoded 09/06/23 09:34) Diffuse rash Nursing Note Patient here for first Prolia injection. Patient was provided pertinent information regarding Prolia. Patient aware of possible side effects and what signs to look for if a reaction occurs. She understands she should seek care at ER if a reaction occurs where she has any difficulty breathing, significant swelling, or rash. Patient signed consent to receive Prolia. I administered Prolia on left upper thigh as requested by patient. Patient tolerated injection well. Office Meds Prolia 60 mg/mL subcutaneous syringe Performing Provider: Mark Anthony Olsen MD Performing Location: [facility] Rheumatology Administered by: Roselia Gerber RN on 09/14/23 11:52 Dose Route Admin Location Dispensed Lot Number Expiration Date [facility] Distribution Clerk 60 mg subcut left upper thigh 1 mL [id number] 11/05/25 50860-757-12 AMGEN Coding Level of Care Code Procedure Only Assessment & Plan Assessment & Plan Orders: Orders AMB Denosumab Injection Practice Supplied Today M81.0 - Age-related osteoporosis without current pathological fracture
[2023-09-14 12:02] VITALS: BP 112/74; PULSE 60
== END 2023-09-14 11:25 | disposition home or self-care (01) ==
PROVIDERS: PCP Internal Medicine; Visit Provider Student in an Organized Health Care Education/Training Program
DX: M81.0 Age-related osteoporosis without current pathological fracture (principal)

== ENCOUNTER → 2023-09-14 11:09 | Outpatient (BNVA) | payer MEDICARE, SELFPAY | PROVIDERS: PCP Internal Medicine; Visit Provider Student in an Organized Health Care Education/Training Program | DX: M81.0 Age-related osteoporosis without current pathological fracture (principal) | CPT/HCPCS: 96372; J0897 ==

== ENCOUNTER 2023-11-30 06:20 | Outpatient (REF) | payer MEDICARE, SELFPAY ==
[2023-11-30 11:12] LABS: Alanine Aminotransferase 16 U/L (0-31); Anion Gap 10 (12-20); Aspartate Amino Transferase 19 U/L (5-31); Blood Urea Nitrogen 15 mg/dL (9-16); Calcium 9.1 mg/dL (8.4-10.2); Carbon Dioxide 29 mmol/L (22-29); Chloride 107 mmol/L (96-108); Cholesterol 179 mg/dL (<200); Estimated Glomerular Filt Rate > 60; Glucose Fasting 87 mg/dL (60-99); HDL Cholesterol 73 mg/dL (>40); LDL Cholesterol Calculated 97 mg/dL (<100); Potassium 4.1 mmol/L (3.3-5.1); Sodium 142 mmol/L (135-145); Triglycerides 47 mg/dL (<150)
[2023-11-30 11:36] LABS: Free T4 (Free Thyroxine) 1.12 ng/dL (0.71-1.85); Thyroid Stimulating Hormone 0.53 uIU/mL (0.32-4.0); Vitamin D 25-OH Total 78.4 ng/mL (>30)
== END 2023-11-30 06:21 | disposition home or self-care (01) ==
LOC: HO.HMGCLDS 06:20
PROVIDERS: PCP Internal Medicine; Visit Provider Internal Medicine
DX: M81.0 Age-related osteoporosis without current pathological fracture (principal); R73.01 Impaired fasting glucose; E78.5 Hyperlipidemia, unspecified; E03.9 Hypothyroidism, unspecified; Z51.81 Encounter for therapeutic drug level monitoring; Z79.83 Long term (current) use of bisphosphonates
CPT/HCPCS: 36415; 80048; 80061; 82306; 84439; 84443; 84450; 84460

== ENCOUNTER 2023-12-14 09:19 | Outpatient (AMB) | payer MEDICARE, SELFPAY ==
[2023-12-14 09:53] VITALS: BP 122/90; PULSE 56; O2SAT 99; BMI 25.9
--- NOTE | 2023-12-14 09:53 | A.OFFPC_ITS ---
Vital Signs 12/14/23 09:53 Height 4 ft 11 in Weight 128 lb BMI 25.9 BP 122/90 H Blood Pressure Location Rt brachial Position Sitting Pulse 56 Pulse Source Pulse Oximeter Pulse Oximetry (%) 99 Oxygen Delivery Method Room Air Intake Visit Reasons: 6 Month follow up Intake Note: Pt is here today for her 6mo. f/u Allergies Chocolate Allergy (Unknown, Verified 12/16/23 04:20) Hives Penicillins [PENICILLINS] Allergy (Unknown, Verified 12/16/23 04:20) RASH rsv vaccine Allergy (Intermediate, Uncoded 12/16/23 04:20) Diffuse rash Medication List - Last Reconciled 12/16/23 by Jina Lopez MD ascorbate calcium (vitamin C) 500 mg PO DAILY calcium carbonate 600 mg PO DAILY cholecalciferol (vitamin D3) 25 mcg PO DAILY denosumab (Prolia) 60 mg subcut [id number] fluticasone propionate 50 mcg/actuation (Flonase Allergy Relief) 1 spray intranasal DAILY folic acid 0.4 mg PO DAILY glucosamine HCl 1,000 mg (2 x 500 mg) PO DAILY levothyroxine 75 mcg PO .Every other morning levothyroxine 50 mcg PO .Every other morning loratadine 10 mg PO DAILY methylcellulose (laxative) (Citrucel) 500 mg PO DAILY midodrine 5 mg PO TID 90 days simvastatin 10 mg PO DAILY 3 months sodium chloride 0.65% (Saline Mist) 1 spray intranasal BID PRN Tobacco use date assessed: 12/14/23 Fall risk assessment: No Falls in past year Last assessed Fall Risk: 12/14/23 Dental Screening Dental Screen Date: 12/14/23 Did you have a dental visit in the last 12 months?: Yes Did you have a dental problem in the last 6 months where you did not have access to dental care?: Yes Was dental information given to patient?: Patient has dentist HPI 6 Month follow up HPI Details 68-year-old lady with history of dyslipi demia, acquired hypothyroidism and impaired fasting glucose, here today for follow-up. She has been feeling well, compliant with medications, no complaints at present time. Has osteoporosis, previously on alendronate for 5 years, but no improvement and further decline in bone density noted. Currently sees Rheumatology who star john her on Prolia [facility] Medical History Osteoporosis of femur without pathological fracture Preoperative examination Encounter for monitoring alendronate therapy Osteopenia of left femoral neck Recurrent syncope Hx of syncope Palpable thyroid Postmenopause Irritable bowel syndrome Osteoporosis Hearing loss, bilateral Seasonal allergic rhinitis Impaired fasting glucose Dyslipidemia Acquired hypothyroidism Surgical History Hx of arthroscopy History of carpal tunnel surgery of right wrist Hx of dilation and curettage Hx of nasal septoplasty Hx of cholecystectomy History of colonoscopy Family History Mother Breast cancer CAD (coronary artery disease) CVD (cardiovascular disease) Father Medical history non-contributory Brother No problems noted. Social History Household Members Other:: father Housing: House Are you a primary in home caregiver to a significant other at home: No Do you presently have visiting nurse or other home services: No Alcohol intake: never Patient Tobacco Use Status: Never used Tobacco e-Cigarette/Vaping Use: Never Used Advance Directives Date on File: 03/11/22 Current occupational status: retired Cognitive needs: No Hearing needs: Yes Vision needs: Yes Questionnaire PHQ-9 Over the last 2 weeks, how often have you been bothered by any of the following problems? 1. Little interest or pleasure in doing things: not at all 2. Feeling down, depressed, or hopeless: not at all 3. Trouble falling or staying asleep, or sleeping too much: not at all 4. Feeling tired or having little energy: not at all 5. Poor appetite or overeating: not at all 6. Feeling bad about yourself - or that you are a failure or have let yourself or your family down: not at all 7. Trouble concentrating on things, such as reading the newspaper or watching television: not at all 8. Moving or speaking so slowly that other people could have noticed. Or the opposite - being so fidgety or restless that you have been moving around a lot more than usual: not at all 9. Thoughts that you would be better off or of hurting yourself in some way: not at all Total score: 0 Depression Screening Interpretation: Negative Depression Screening Done: Yes 91269 - PHQ-9 Billing: Yes Source: Developed by Drs. Devon Whitten, Monica Blue, Kane Ch and colleagues, with an educational jerman from [employer]. Thrive Questionnaire Date Thrive assessed: 12/14/23 I am a: Patient What is your living situation today?: I have a steady place to live Within the past 12 months, did the food you bought not last and you didn't have the money to get more?: Never true Within the past 12 months, did you worry whether your food would run out before you got money to buy more?: Never true Do you have trouble paying for medicines?: No Do you have trouble getting transportation to medical appointments?: No Do you have trouble paying your heating and electricity bill?: No Do you have trouble taking care of your child, family member or friend?: No Do you have trouble with day-to-day activities such as bathing, preparing meals, shopping, managing finances, etc.?: No Are you currently unemployed and looking for a job?: I choose not to answer this question Are you interested in more education?: No Please select the resources that you would like help with: Housing/Chcf Currently or been in a relationship where the following occur: No concerns reported THRIVE Score: 0 AUDIT C Alcohol Use Questionnaire (AUDIT-C) 1. How often do you have a drink containing alcohol?: Never 3. How often do you have six or more drinks on one occasion?: Never Total Score: 0 KITTY-7 AMB Questionnaire KITTY-7 Date KITTY - 7 assessed: 12/14/23 Feeling nervous, anxious, or on edge: 0 = Not at all Not being able to stop or control worryin = Not at all Worrying too much about different things: 0 = Not at all Trouble relaxin = Not at all Being so restless that it is hard to sit still: 0 = Not at all Becoming easily annoyed or irritable: 0 = Not at all Feeling afraid as if something awful might happen: 0 = Not at all Total KITTY-7 score (0-4 normal; 5-9 mild; 10-14 moderate; 15-21 severe): 0 Source: Developed by Monica Sheth.W. Mirza, Kane Ch and colleagues, with an educational jerman from [employer]. Review of Systems Const Reports no additional complaints Eyes Details: Up-to-date with her eye exam, goes to [facility] Denies no additional complaints ENT Denies no additional complaints and Reports hearing loss (Has hearing aid) Card Reports no additional complaints, Denies acrocyanosis, Denies chest pain, Denies leg edema, Denies lightheadedness, Denies palpitations and Denies dyspnea Resp Denies no additional complaints and Denies dyspnea GI Denies no additional complaints Reports no additional complaints Musc Reports no additional complaints (No history of fractures) Skin/Breast Reports system reviewed and no additional complaints, except as documented Neuro Denies Abnormal speech present Psych Reports no additional complaints and Reports as per HPI Endo Reports no additional complaints, Reports as per HPI and Denies palpitations Kaveh/Lymph Reports no additional complaints and Reports as per HPI Aller/Immun Reports no additional complaints and Reports as per HPI Physical exam (Primary Care) Vital Signs: Last Vital Signs Pulse 56 12/14/23 09:53 BP 122/90 H 12/14/23 09:53 Pulse Ox 99 12/14/23 09:53 Oxygen Delivery Method Room Air 12/14/23 09:53 BMI result Body Mass Index 25.9 Tobacco/Smoking Status: Tobacco use Status Tobacco use date assessed 12/14/23 12/14/23 09:54 Patient Tobacco Use Status Never used Tobacco 12/14/23 09:54 e-Cigarette/Vaping Use Never Used 12/14/23 09:54 PHQ-9: PHQ-9 Score PHQ-9: Total score 0 12/16/23 04:31 Depression Screening Interpretation: Negative Thrive Assessment: Date of Thrive Assessment Date Thrive assessed 12/14/23 12/14/23 09:54 Currently or been in a relationship where the following occur: No concerns rep orted Neuro Speech: No Abnormal speech present Results Reviewed Results Reviewed: Name: Candy Turpin Age/Sex: 68/F : 1955 Unit#: [id number] Attend Dr: Jina Lopez MD Re11/30/23 Status: DEP REF Location: [facility] Disch: SPEC : [id number] YEN: 11/30/23 STATUS: COMP REQ : [id number] RECD: 11/30/[address] [facility] [address]: Jina Lopez MD COMP: 11/30/23 ENTERED: 11/30/[address] [facility] [address]: ORDERED: Met Prof Fast, AST, ALT, Lipid Panel, Vitamin D 25-OH, Free T4, TSH Test Result Flag Reference Sodium 142 135-145 mmol/L Potassium 4.1 3.3-5.1 mmol/L CL 107 96-108 mmol/L CO2 29 22-29 mmol/L Gap 10 L 12-20 BUN 15 9-16 mg/dL Creat 0.72 0.5-1.4 mg/dL EGFR > 60 NOTE: For -Swiss individuals, multiply the result by 1.210. Chronic Kidney Disease: Estimated GFR < 60 mL/min/1.73m2 Severe Kidney Disease: Estimated GFR < 15 mL/min/1.73m2 FBS 87 60-99 mg/dL CA 9.1 8.4-10.2 mg/dL AST (GOT) 19 5-31 U/L ALT (GPT) 16 0-31 U/L Triglyceride 47 <150 mg/dL Desirable Triglyceride: less than 150 mg/dL Borderline High Triglyceride 150-199 mg/dL High Triglyceride: 200-499 mg/dL Very High Triglyceride: greater than or equal to 5OO mg/dL Cholesterol 179 <200 mg/dL Desirable Cholesterol: less than 200 mg/dL Borderline High Cholesterol: 200-239 mg/dL High Cholesterol: greater than 239 mg/dL LDL Calculated 97 <100 mg/dL Desirable LDL: less than 100 mg/dL Near Optimal/Above Optimal LDL: 110-129 mg/dL Borderline High LDL: 130-159 mg/dL High LDL: 160-189 mg/dL Very High LDL: greater than or equal to 190 mg/dL HDL 73 >40 mg/dL Desirable HDL: greater than 40 mg/dL Note: This HDL assay may give artificially low results in patients with liver disease. Vit D 25-OH Tot 78.4 >30 ng/mL Health Based Reference Values* < 20 ng/mL Deficient 20-30 ng/mL Insufficient > 30 ng/mL Sufficient *Cristina GOLDSTEIN. N Engl J Med. 2007;357:266-280 Care must be taken in interpreting Vitamin D results from different laboratories and methodologies. Published data demonstrated that results from patients undergoing hemodialysis may show a negative bias when tested with various automated 25-OH vitamin D assays when compared to LC-MS/MS. When testing samples from patients whose predominant form of Vitamin D is Vitamin D2, such as patients receiving Vitamin D2 supplementation, results that are subtherapeutic should be confirmed with another method such as LC-MS/MS. Free T4 1.12 0.71-1.85 ng/dL TSH 3rd Gen. 0.53 0.32-4.0 uIU/mL Assessment and Plan Assessment & Plan (1) Acquired hypothyroidism: Code(s): E03.9 - Hypothyroidism, unspecified Plan: Recent thyroid labs showed results within normal limits, continue with current dose of levothyroxine (2) Dyslipidemia: Code(s): E78.5 - Hyperlipidemia, unspecified Plan: Recent fasting lipids are within normal limits, continue with simvastatin 10 mg at bedtime, recheck lipid panel again in 06/28/2024 (3) Impaired fasting glucose: Code(s): R73.01 - Impaired fasting glucose Plan: Your previous fasting blood sugars were elevated above 100 mg/dL. Impaired glucose metabolism increases the risk for developing diabetes mellitus type 2, as well as heart attack and stroke later on. Lifestyle changes that promotes weight loss, healthy eating habits, and regular exercise are important, and can prevent the progression to diabetes Orders: Orders Thyroid Stimulating Hormone 12/08/23 E03.9 - Hypothyroidism, unspecified, E78.5 - Hyperlipidemia, unspecified, M81.0 - Age-related osteoporosis without current pathological fracture Free T4 (Free Thyroxine) 12/08/23 E03.9 - Hypothyroidism, unspecified, E78.5 - Hyperlipidemia, unspecified, M81.0 - Age-related osteoporosis without current pathological fracture Lipid Panel 12/08/23 E03.9 - Hypothyroidism, unspecified, E78.5 - Hyperlipidemia, unspecified, M81.0 - Age-related osteoporosis without current pathological fracture Aspartate Amino Transferase 12/08/23 E03.9 - Hypothyroidism, unspecified, E78.5 - Hyperlipidemia, unspecified, M81.0 - Age-related osteoporosis without current pathological fracture Alanine Aminotransferase 12/08/23 E03.9 - Hypothyroidism, unspecified, E78.5 - Hyperlipidemia, unspecified, M81.0 - Age-related osteoporosis without current pathological fracture Thyroid Stimulating Hormone 06/09/24 E03.9 - Hypothyroidism, unspecified, E78.5 - Hyperlipidemia, unspecified, R73.01 - Impaired fasting glucose Free T4 (Free Thyroxine) 06/09/24 E03.9 - Hypothyroidism, unspecified, E78.5 - Hyperlipidemia, unspecified, R73.01 - Impaired fasting glucose Alanine Aminotransferase 06/09/24 E03.9 - Hypothyroidism, unspecified, E78.5 - Hyperlipidemia, unspecified, R73.01 - Impaired fasting glucose Aspartate Amino Transferase 06/09/24 E03.9 - Hypothyroidism, unspecified, E78.5 - Hyperlipidemia, unspecified, R73.01 - Impaired fasting glucose Basic Metabolic Panel Fasting 06/09/24 E03.9 - Hypothyroidism, unspecified, E78.5 - Hyperlipidemia, unspecified, R73.01 - Impaired fasting glucose Lipid Panel 06/09/24 E03.9 - Hypothyroidism, unspecified, E78.5 - Hyperlipidemia, unspecified, R73.01 - Impaired fasting glucose Hemoglobin A1c 06/09/24 E03.9 - Hypothyroidism, unspecified, E78.5 - Hyperlipidemia, unspecified, R73.01 - Impaired fasting glucose Coding Level of Care Code Est Pt Level 4 (76243) Complex EM visit Add On G2211 Diagnoses Acquired hypothyroidism E03.9 Dyslipidemia E78.5 Impaired fasting glucose R73.01
== END 2023-12-14 10:55 | disposition home or self-care (01) ==
PROVIDERS: PCP Internal Medicine; Visit Provider Internal Medicine
DX: E03.9 Hypothyroidism, unspecified (principal); E78.5 Hyperlipidemia, unspecified; R73.01 Impaired fasting glucose
CPT/HCPCS: 99214; G2211

== ENCOUNTER 2024-01-16 08:53 | Outpatient (AMB) | payer MEDICARE, SELFPAY ==
[2024-01-16 09:11] VITALS: BP 130/70; PULSE 52; BMI 26.2
--- NOTE | 2024-01-16 09:11 | A.OFFVIS_ITS ---
Vital Signs 01/16/24 09:11 Height 4 ft 11 in Weight 129 lb 10.109 oz BMI 26.2 BP 130/70 Blood Pressure Location Lt brachial Position Sitting Pulse 52 Intake Visit Reasons: 1Y follow up Land Examiner Required: No Accompanied by: Self / Same As Patient Allergies Chocolate Allergy (Unknown, Verified 12/16/23 04:20) Hives Penicillins [PENICILLINS] Allergy (Unknown, Verified 12/16/23 04:20) RASH rsv vaccine Allergy (Intermediate, Uncoded 12/16/23 04:20) Diffuse rash Medication List - Last Reconciled 01/16/24 by Tom Griffin MD ascorbate calcium (vitamin C) 500 mg PO DAILY calcium carbonate 600 mg PO DAILY cholecalciferol (vitamin D3) 25 mcg PO DAILY denosumab (Prolia) 60 mg subcut [id number] fluticasone propionate 50 mcg/actuation (Flonase Allergy Relief) 1 spray intranasal DAILY folic acid 0.4 mg PO DAILY glucosamine HCl 1,000 mg (2 x 500 mg) PO DAILY levothyroxine 75 mcg PO .Every other morning levothyroxine 50 mcg PO .Every other morning loratadine 10 mg PO DAILY methylcellulose (laxative) (Citrucel) 500 mg PO DAILY midodrine 5 mg PO TID 90 days simvastatin 10 mg PO DAILY 3 months sodium chloride 0.65% (Saline Mist) 1 spray intranasal BID PRN HPI Comments Details: Candy returns for follow-up regarding dizziness suspected orthostatic hypotension. She has a history of vasovagal syncope many years ago. She underwent workup with the 30 day monitor as well as tilt-table around that time. Thought to be overall consistent with vasovagal syncope. Due to recurrence of dizzy spells, underwent re-evaluation. Thought to be from low blood pressure/orthostatic hypotension. Subsequently, had one further tilt-table test. Then put on midodrine. After that, she states she is actually feeling fine. Very rare dizziness and no syncopal episodes. She is getting along fine. She is exercising on treadmill as well as stationary bike. No concerns. PENDING SALE TO [facility] Medical History Osteoporosis of femur without pathological fracture Preoperative examination Encounter for monitoring alendronate therapy Osteopenia of left femoral neck Recurrent syncope Hx of syncope Palpable thyroid Postmenopause Irritable bowel syndrome Osteoporosis Hearing loss, bilateral Seasonal allergic rhinitis Impaired fasting glucose Dyslipidemia Acquired hypothyroidism Surgical History Hx of arthroscopy History of carpal tunnel surgery of right wrist Hx of dilation and curettage Hx of nasal septoplasty Hx of cholecystectomy History of colonoscopy Family History Mother Breast cancer CAD (coronary artery disease) CVD (cardiovascular disease) Father Medical history non-contributory Brother No problems noted. Social History Household Members Other:: father Housing: House Are you a primary pet caregiver to a significant other at home: No Do you presently have visiting nurse or other home services: No Alcohol intake: never Patient Tobacco Use Status: Never used Tobacco e-Cigarette/Vaping Use: Never Used Advance Directives Date on File: 03/11/22 Current occupational status: retired Cognitive needs: No Hearing needs: Yes Vision needs: Yes Review of Systems Const Denies chills, Denies fatigue, Denies fever(s), Denies weight gain and Denies weight loss ENT Denies dizziness Card Denies chest pain, Denies leg edema, Denies lightheadedness, Denies palpitations, Denies dyspnea on exertion, Denies orthopnea and Denies other Resp Denies cough and Denies dyspnea on exertion GI Denies hematochezia and Denies change in stool character Musc Denies abnormal gait, Denies muscle weakness, Denies numbness, Denies radiating pain into limb and Denies tingling Neuro Denies abnormal gait, Denies dizziness, Denies numbness and Denies tingling Endo Denies fatigue and Denies palpitations Physical Exam Vital Signs: Last Vital Signs Pulse 52 01/16/24 09:11 BP 130/70 01/16/24 09:11 BMI result Body Mass Index 26.2 Const General: comfortable and no acute distress Orientation/consciousness: patient oriented x3 HEENT Other: Unremarkable Head: Yes normal to inspection Neck Neck: Yes normal visual inspection Chest Chest palpation & inspection: normal inspection of the chest Resp Auscultation: clear to auscultation bilaterally Cardio Palpation: normal PMI Heart sounds: S1 normal heart sound present, S2 normal heart sound present, no gallops, no murmurs and no rubs GI Palpation (GI): Soft to palpation Back/Spine/Pelvis Other: unremarkable Skin General skin exam: no rashes or lesions noted Neuro General: patient oriented x3 Extrem General: Yes normal to inspection Psych Mental Status: mental status grossly normal Office Procedures EKG Details: EKG with sinus bradycardia at 52/Min; GA prolongation to 216 milliseconds; [place]. [id number], Complete Assessment & Plan Assessment & Plan (1) Recurrent syncope: Code(s): R55 - Syncope and collapse Category: Medical (2) Hypotension (arterial): Code(s): I95.9 - Hypotension, unspecified Category: Medical Qualifiers: Hypotension type: idiopathic hypotension Qualified Code(s): I95.0 - Idiopathic hypotension Plan Cardiac studies reviewed. Baseline EKG with sinus bradycardia and mild GA prolongation, otherwise unremarkable. Echocardiogram with LVEF of 60-65%. No significant valvular issues. Tilt-table study repeated and essentially unremarkable. Blood pressures were actually acceptable. Overall, symptoms possibly from low blood pressure/orthostasis. Again re-emphasized liberalizing salt intake, compression stockings and she can continue midodrine. If there is profound dizziness, can take an extra tablet. Otherwise, call with concerns. We will see her yearly. In the interim, she will call with any ongoing issues. Coding Level of Care Code Est Pt Level 3 (91657) Diagnoses Recurrent syncope R55 Idiopathic hypotension I95.0 Hypotension type: idiopathic hypotension CPT Codes EKG - CPT: 30725-[id number], Complete ([id number])
== END 2024-01-16 09:29 | disposition home or self-care (01) ==
PROVIDERS: PCP Internal Medicine; Visit Provider Internal Medicine
DX: R55 Syncope and collapse (principal); I95.0 Idiopathic hypotension
CPT/HCPCS: 93010; 99213

== ENCOUNTER → 2024-01-16 08:53 | Outpatient (BNVA) | payer MEDICARE, SELFPAY | PROVIDERS: PCP Internal Medicine; Visit Provider Internal Medicine | DX: R55 Syncope and collapse (principal); I95.0 Idiopathic hypotension | CPT/HCPCS: 93005; 99212 ==

== ENCOUNTER 2024-01-23 11:44 | Outpatient (REF) | payer MEDICARE, SELFPAY ==
[2024-01-23 15:56] VITALS: BP 132/61; PULSE 69; RESP 16; TEMP 36.1; O2SAT 99; BMI 25.4
== END 2024-01-23 11:45 | disposition home or self-care (01) ==
LOC: HO.MS 11:44
PROVIDERS: PCP Internal Medicine; Visit Provider Ophthalmology
PROC: (CPT 66821; principal; 2024-01-23 14:10)
DX: H26.492 Other secondary cataract, left eye (principal)
CPT/HCPCS: 66821

== ENCOUNTER 2024-03-10 08:53 | Outpatient (REF) | payer MEDICARE, SELFPAY ==
[2024-03-10 11:46] LABS: Anion Gap 14 (12-20); Blood Urea Nitrogen 15 mg/dL (9-16); Calcium 9.6 mg/dL (8.4-10.2); Carbon Dioxide 25 mmol/L (22-29); Chloride 110 mmol/L (96-108); Estimated Glomerular Filt Rate > 60; Glucose Random 58 mg/dL (60-115); Potassium 4.7 mmol/L (3.3-5.1); Sodium 144 mmol/L (135-145)
[2024-03-14 17:02] LABS: Vitamin D 25-OH, D2 <4 ng/mL; Vitamin D 25-OH, D3 56 ng/mL; Vitamin D 25-OH, Total 56 ng/mL (30-100)
== END 2024-03-10 08:54 | disposition home or self-care (01) ==
LOC: HO.HMGCLDS 08:53
PROVIDERS: PCP Internal Medicine; Visit Provider Student in an Organized Health Care Education/Training Program
DX: M81.0 Age-related osteoporosis without current pathological fracture (principal); E55.9 Vitamin D deficiency, unspecified
CPT/HCPCS: 36415; 80048; 82306

== ENCOUNTER 2024-03-19 07:49 | Outpatient (AMB) | payer MEDICARE, SELFPAY ==
--- NOTE | 2024-03-19 07:56 | A.OFFVIS_ITS ---
Vital Signs 03/19/24 08:00 Height 4 ft 11 in Weight 130 lb 8.218 oz BMI 26.4 BP 130/60 Blood Pressure Location Lt brachial Position Sitting Pulse 67 Pulse Source Pulse Oximeter Pulse Oximetry (%) 99 Oxygen Delivery Method Room Air Intake Visit Reasons: Osteoporosis/prolia/CM Intake Note: Patient presents for Osteoporosis and Prolia injection. Allergies Chocolate Allergy (Unknown, Verified 03/19/24 07:59) Hives Penicillins [PENICILLINS] Allergy (Unknown, Verified 03/19/24 07:59) RASH rsv vaccine Allergy (Intermediate, Uncoded 12/16/23 04:20) Diffuse rash Medication List - Last Reconciled 03/19/24 by Mark Anthony Olsen MD ascorbate calcium (vitamin C) 500 mg PO DAILY calcium carbonate 600 mg PO DAILY cholecalciferol (vitamin D3) 25 mcg PO DAILY denosumab (Prolia) 60 mg subcut [id number] fluticasone propionate 50 mcg/actuation (Flonase Allergy Relief) 1 spray intranasal DAILY folic acid 0.4 mg PO DAILY glucosamine HCl 1,000 mg (2 x 500 mg) PO DAILY levothyroxine 75 mcg PO .Every other morning levothyroxine 50 mcg PO .Every other morning loratadine 10 mg PO DAILY methylcellulose (laxative) (Citrucel) 500 mg PO DAILY midodrine 5 mg PO TID 90 days simvastatin 10 mg PO DAILY 3 months sodium chloride 0.65% (Saline Mist) 1 spray intranasal BID PRN HPI Comments Details: 69-year-old female with osteoporosis returns for follow-up. She states that she is doing quite well overall. No new complaints. She has received 2 Prolia injections so far. Including today. She has been exercising regularly she does treadmill, stationary bike and light weights. She exercises most days. Denies any recent falls or fractures Initial history: 68-year-old female with osteoporosis is referred by her PCP for worsening osteoporosis. Patient had been on alendronate since 2019. Recent DEXA scan showed significantly worsening bone density. Patient states that does not recall any history of fractures. She stated that she was having falls recently, she was told that it was due to low blood pressure and she was started on midodrine with some improvement. She has not had any recent falls. Patient reached menopause at age 40-50. She does not have oophorectomy. She exercises for 50 minutes daily. She states that recently she has been having episodes of numbness on her left lower extremity as well as left lower extremity discomfort. [facility] Medical History Encounter for monitoring alendronate therapy Osteoporosis of femur without pathological fracture Preoperative examination Osteopenia of left femoral neck Recurrent syncope Hx of syncope Palpable thyroid Postmenopause Irritable bowel syndrome Osteoporosis Hearing loss, bilateral Seasonal allergic rhinitis Impaired fasting glucose Dyslipidemia Acquired hypothyroidism Surgical History Hx of arthroscopy History of carpal tunnel surgery of right wrist Hx of dilation and curettage Hx of nasal septoplasty Hx of cholecystectomy History of colonoscopy Family History Mother Breast cancer CAD (coronary artery disease) CVD (cardiovascular disease) Father Medical history non-contributory Brother No problems noted. Social History Household Members Other:: father Housing: House Are you a primary child day care provider to a significant other at home: No Do you presently have visiting nurse or other home services: No Alcohol intake: never Patient Tobacco Use Status: Never used Tobacco e-Cigarette/Vaping Use: Never Used Advance Directives Date on File: 03/11/22 Current occupational status: retired Cognitive needs: No Hearing needs: Yes Vision needs: Yes Female Reproductive History Menstrual Total pregnancies: 0 Review of Systems Const Denies weight loss Physical Exam Vital Signs: Last Vital Signs Pulse 67 03/19/24 08:00 BP 130/60 03/19/24 08:00 Pulse Ox 99 03/19/24 08:00 Oxygen Delivery Method Room Air 03/19/24 08:00 BMI result Body Mass Index 26.4 Const General: cooperative, healthy appearing and comfortable Nutritional Appearance: average body habitus Orientation/consciousness: patient oriented x3 Limitations: no limitations HEENT Head: Yes normocephalic and Yes atraumatic Mouth: moist mucous membranes Resp Effort & Inspection: normal respiratory effort and able to speak in complete sentences Neuro General: patient oriented x3 Extrem Other: Subtle osteoarthritic changes of both hands Normal gait Office Meds Prolia 60 mg/mL subcutaneous syringe Performing Provider: Mark Anthony Olsen MD [place] [facility] [place] Administered by: Bethany Plumemr RN on 03/19/24 08:13 Dose Route Admin Location Dispensed Lot Number Expiration Date [facility] Addiction Social Worker 60 mg subcut right upper thigh 1 mL [id number] 07/06/26 63235-426-09 [facility] Comments: Consent form signed by patient. Pt tolerated injected well. Pt denies any problems with previous injections. Assessment & Plan Assessment & Plan (1) Osteoporosis of femur without pathological fracture: Comment: DEXA 04/2021 L-spine T-score -1.0 Left femur neck T-score-1.6 Left femur total-1.2 DEXA 05/2023 L-spine T-score-1.0 Left femur neck-3.2 Left femur total -2.8 Alendronate 04/2019 -06/2023 Prolia 09/2023 Code(s): M81.0 - Age-related osteoporosis without current pathological fracture Category: Medical Plan: This is a 69-year-old female with osteoporosis who presents for follow-up. She received her 2nd Prolia injection in clinic today. Doing well overall with no recent falls or fractures. Vitamin-D level at target Continue with Prolia injection every 6 months. Plan to repeat DEXA 05/2025 Continue with current vitamin-D supplementation dose Continue regular exercise Labs before next visit in 6 months Plan I spent 16 minutes reviewing patient's chart, evaluating patient, ordering diagnostic workup, counseling patient and documenting in the chart Orders: Orders Basic Metabolic Panel 6 Months M81.0 - Age-related osteoporosis without current pathological fracture Vitamin D 25-OH (D2 and D3) 6 Months E55.9 - Vitamin D deficiency, unspecified AMB Denosumab Injection Practice Supplied Today M81.0 - Age-related osteoporosis without current pathological fracture Coding Level of Care Code Est Pt Level 3 (63657) Diagnoses Osteoporosis of femur without pathological fracture M81.0
[2024-03-19 08:00] VITALS: BP 130/60; PULSE 67; O2SAT 99; BMI 26.4
== END 2024-03-19 08:28 | disposition home or self-care (01) ==
PROVIDERS: PCP Internal Medicine; Visit Provider Student in an Organized Health Care Education/Training Program
DX: M81.0 Age-related osteoporosis without current pathological fracture (principal)
CPT/HCPCS: 99213

== ENCOUNTER → 2024-03-19 07:49 | Outpatient (BNVA) | payer MEDICARE, SELFPAY | PROVIDERS: PCP Internal Medicine; Visit Provider Student in an Organized Health Care Education/Training Program | DX: M81.0 Age-related osteoporosis without current pathological fracture (principal); Z79.620 Long term (current) use of immunosuppressive biologic | CPT/HCPCS: 96372; 99212; J0897 ==

== ENCOUNTER 2024-06-05 07:29 | Outpatient (REF) | payer MEDICARE, SELFPAY ==
--- OUTSIDE RECORDS SUMMARY | 2024-06-05 07:32 | XMS_ITS ---
[facility] Address [address] [place] [address] Care Team Providers Care Automobile Racer Name Role Phone John SCHRADER, Jina Sawyer Primary Care Provider Un available Diana Merritt Unavailable [phone] Allergies Allergen (clinical drug ingredient) Drug/Non Drug Allergy documented on EMR Reaction Allergy Type Onset Date Status Chocolate Flavor Unknown Drug Allergy Active Penicillin Unknown Drug Allergy Active REASON FOR VISIT At Risk Footcare, Painful Nail(s) aggrevated by shoes and causing difficulty standing/walking., Wart(s) Medications Medication SIG (Take, Route, Frequency, Duration) Notes Start Date End Date Status Alendronate Sodium 70 MG/75ML 75 mL 30 minutes before the first food, beverage or medicine of the day with plain water Orally for 30 day(s) Active Midodrine HCl 5 MG 1 tablet Orally three times a day for 30 days Active Glucosamine Sulfate Active Loratadine 10 MG 1 tablet Orally Once a day for 30 day(s) Active Flonase Active Levothyroxine Sodium 50 MCG 1 tablet in the morning on an empty stomach Orally Once a day for 30 day(s) Alternate Days Active Levothyroxine Sodium 75 MCG 1 tablet in the morning on an empty stomach Orally Once a day for 30 day(s) Alternate days Active Prolia every 6 months Activ e Vitamin D3 25 MCG (1000 UT) as directed Active Folic Acid 800 MCG 1 tablet Orally Once a day for 30 day(s) Active Simvastatin 10 MG 1 tablet in the evening Orally Once a day for 30 days Active Vitamin C 500 MG as directed Orally Active Citrucel Active Saline Nasal [place] A ctive Calcium + Vitamin D3 Active Social History Tobacco Use: Social History Observation Description Date Details (start date - stop date) Never Smoker NA - NA Tobacco Use/Smoking Question Answer Notes Are you a: nonsmoker Additional Findings: Tobacco Non-User Current no n-smoker Alcohol Screen Question Answer Notes Did you have a drink containing alcohol in the p ast year? No Points 0 Interpretation Negative Tobacco use other than smoking: Question Answer Notes Are you an other tobacco user? No Vital Signs Height 4ft 11in in 02/03/2024 Weight 126 lbs 02/03/2024 BMI 25.45 kg/m2 02/03/2024 Encounters Encounter Location Date Provider Diagnosis [facility] [address] [place] [address] 02/03/2024 Diana Merritt Plantar wart B07.0 ; Tinea unguium B35.1 ; Other hammer toe(s) (acquired), right foot M20.41 ; Atherosclerosis of [place] artery of both lower extremities, with unspecified presence of clinical manifestation I70.203 ; Pain in right toe(s) M79.674 ; Pain in left toe(s) M79.675 ; Right foot pain M79.671 and Other hammer toe(s) (acquired), left foot M20.42 Assessments Encounter Date Diagnosis (ICD Code) Assessment Notes Treatment Notes Treatment Clinical Notes Section Notes 02/03/2024 Plantar wart (ICD-10 - B07.0) 02/03/2024 Tinea unguium (ICD-10 - B35.1) 02/03/2024 Other hammer toe(s) (acquired), right foot (ICD-10 - M20.41) 02/03/2024 Atherosclerosis of [place] artery of both lower extremities, with unspecified presence of clinical manifestation (ICD-10 - I70.203) 02/03/2024 Pain in right toe(s) (ICD-10 - M79.674) 02/03/2024 Pain in left toe(s) (ICD-10 - M79.675) 02/03/2024 Right foot pain (ICD-10 - M79.671) 02/03/2024 Other hammer toe(s) (acquired), left foot (ICD-10 - M20.42) Plan Of Treatment Next Appt Details Follow Up: 2 Months, Reason: Provider Name:Diana mckeon, 06/29/2024 09:15:00 AM, [address] [place] [address], [id number], Procedure Notes * Category Sub-Category Detail Notes Wart Treatment Procedure Verrucae were de brided to pin-point bleeding margins with sterile 15 surgical blade, silver nitrate chemocautery applied, recomm. immune-boosting meds such as zinc, recomm. follow up with topical chemosurgical agents, Pt defers any other forms of tx (54466) Debride Nail 6-10 Nail debridement Nail debridem ent performed extensively to reduce/remove overall nail length, girth, thickness, subungual debris, and necrotic tissue, by manual and electrical means through the use of a nail nipper and/or dremel, to more viable healthy nail plate or bed tissue 1-5. Silver nitrate used for any petechial bleeding as necessary. Patient chooses, no pharmaceutical tx (00261) Keratoma Treatment Parring or Cutting o f Benign Hyperkeratotic Lesion(s) 65014 ( More than 4 Lesions ) - The Benign hyperkeratotic lesions, as described above were pared, and/or cut utilizing a sterile 15 blade, tissue nippers, and/or dremel, Q8 Progress Notes * Aida TURPINOB:1954 (68 yo F)Acc No.[id number]:02/03/2024 Progress Note Patient:?Aida Turpin Provider:?Diana Merritt DPM :1955???Age:68 Y???Sex:Female D ate:02/03/2024 Address: [address], [id number] Pcp:Rose Mary Motley Subjective: * Chief Complaints: * ???At Risk FootcarePainful N ail(s) aggrevated by shoes and causing difficulty standing/walking.Wart(s) * HPI: ???At Risk footcare:?Pt States Last PCP Visit:?Date?06/22/2023 ???Skin problems:?Pt States PCP Visit: ?DATE?06/22/2023 * ROS:?General/Constitutional:?Nausea?denies, denies, denies.?Vomiting?denies, denies, denies.?Hunger Thirst?denies, denies, denies.?Loss appetite?denies, denies, denies.?Chills?denies, denies, denies.?Fatigue?denies, denies, denies.?Fever?denies, denies, denies.?Night Sweats?denies, denies, denies.?Unexplained weight loss?denies, denies, denies.?Unexplained weight gain?denies, denies, denies.?HEENTM:?Dentures?denies, denies, denies.?Dizziness?denies, denies, denies.?Glasses/contacts?admits, admits, admits.?Retinopathy?denies, denies, denies.?Blurred/double vision?denies, denies, denies.?TMJ?denies, denies, denies.?Discharge/drainage?denies, denies, denies.?Implants?denies, denies, denies.?Sore throat?denies, denies, denies.?Dental implants?admits, admits, admits.?Hard of hearing ?admits, admits, admits.?Difficulty chewing/swallowing/speaking denies, denies, denies.?Nose bleeds?denies, denies, denies.?Sore mouth?denies, denies, denies.?Respiratory:?On Oxygen?denies, denies, denies.?Pneumonia/pleurisy?denies, denies, denies.?Bronchitis?denies, denies, denies.?Emphysema?denies, denies, denies.?Coughing?denies, denies, denies.?Cough blood?denies, denies, denies.?Shortness of breath?denies, denies, denies.?Wheezing?denies, denies, denies.?Cardiovascular:?Pacemaker?denies, denies, denies.?MVP?denies, denies, denies.?WPW?denies, denies, denies.?CHF?denies, denies, denies.?Heart attack?denies, denies, denies.?Septal defect?denies, denies, denies.?Rapid beat denies, denies, denies.?Chest pain ?denies, denies, denies.?Atrial Fib.?denies, denies, denies.?Murmur/Palpitations?denies, denies, denies.?Gastrointestinal:?Hemorrhoids?denies, denies, denies.?Stomach/Abdominal pain?denies, denies, denies.?Dark blood stool?denies, denies, denies.?Irritable bowel ?denies, denies, denies.?Constipation?denies, denies, denies.?Diarrhea?denies, denies, denies.?Hematology:?Swelling?denies, denies, denies.?Clots?denies, denies, denies.?Varicose Veins?denies, denies, denies.?Bruising?denies, denies, denies.?Bleeding problem?denies, denies, denies.?Genitourinary:?Blood urine?denies, denies, denies.?Frequent/Painfu/urination/bladder control?denies, denies, denies.?Kidney stones?denies, denies, denies.?Infection (UTI)?denies, denies, denies.?Nephropathy?denies, denies, denies. sex trans dis (STD)?denies, denies, denies.?Prostate?denies, denies, denies.?Musculoskeletal:?Hammertoes?denies, denies, denies.?Bunions?denies, denies, denies.?Back Pain?denies, denies, denies.?Muscle Cramps/ Resting?denies, denies, denies.?Muscle cramps / walking?denies, denies, denies.?Generalized aches and pains?denies, denies, denies.?Weakness?denies, denies, denies.?Integ.:?[place]?denies, denies, denies.?Scars?denies, denies, denies.?Corns/calluses?denies, denies, denies.?Ingrown nails?denies, denies, denies.?Painful nails?denies, denies, denies.?Open Sores?denies, denies, denies.?Rashes?denies, denies, denies.?Neurologic:?Difficulty sleeping?denies, denies, denies.?Brain disorder?denies, denies, denies.?Numbness?denies, denies, denies.?Balance trouble?denies, denies, denies.?Confusion?denies, denies, denies.?Fainting/blackouts?denies, denies, denies.?Tingling?denies, denies, denies.?Tremors?denies, denies, denies.? * Medical History:? * Surgical History:?Cataracts 02/28/2016cataract surgery 01/2024 * Hospitalization/Major Diagno stic Procedure:?Denies Past Hospitalization * Family History:?Mother: dece ased.?Father: alive, Cancer, diagnosed with Unspecified essential hypertension.? * Social History:?Tobacco Use:?Tobacco Use/Smoking?Are you a:?nonsmoker ?Additional Findings: Tobacco Non-User?Current non-smoker ?Tobacco use other than smoking?Are you an other tobacco user??No ???Drugs/Alcohol:?Drugs?Have you used drugs other than those for medical reasons in the past 12 months??No ?Alcohol Screen?Did you have a drink containing alcohol in the past year??No ?Points?0 ?Interpretation?Negative ???Miscellaneous:?no Caffeine, decaf tea. ?no Children. ?Exercise: yes, walking, 40 50 mins a day. ?Marital status: single. ?Occupation: Retired-office work. * Medications:?TakingProlia , Notes: every 6 monthsMidodrine HCl 5 MG Tablet 1 tablet Orally three times a dayAlendronate Sodium 70 MG/75ML Solution 75 mL 30 minutes before the first food, beverage or medicine of the day with plain water Orally Flonase Loratadine 10 MG Tablet 1 tablet Orally Once a dayGlucosamine Sulfate Calcium + Vitamin D3 Saline Nasal [place] Citrucel Vitamin C 500 MG Capsule as directed Orally Simvastatin 10 MG Tablet 1 tablet in the evening Orally Once a dayVitamin D3 25 MCG (1000 UT) Capsule as directed Levothyroxine Sodium 75 MCG Tablet 1 tablet in the morning on an empty stomach Orally Once a day, Notes: Alternate daysLevothyroxine Sodium 50 MCG Tablet 1 tablet in the morning on an empty stomach Orally Once a day, Notes: Alternate DaysFolic Acid 800 MCG Tablet 1 tablet Orally Once a dayMedication List reviewed and reconciled with the patientTaking Prolia , Notes: every 6 monthsTaking Midodrine HCl 5 MG Tablet 1 tablet Orally three times a dayTaking Alendronate Sodium 70 MG/75ML Solution 75 mL 30 minutes before the first food, beverage or medicine of the day with plain water Orally Taking Flonase Taking Loratadine 10 MG Tablet 1 tablet Orally Once a dayTaking Glucosamine Sulfate Taking Calcium + Vitamin D3 Taking Saline Nasal [place] Taking Citrucel Taking Vitamin C 500 MG Capsule as directed Orally Taking Simvastatin 10 MG Tablet 1 tablet in the evening Orally Once a dayTaking Vitamin D3 25 MCG (1000 UT) Capsule as directed Taking Levothyroxine Sodium 75 MCG Tablet 1 tablet in the morning on an empty stomach Orally Once a day, Notes: Alternate daysTaking Levothyroxine Sodium 50 MCG Tablet 1 tablet in the morning on an empty stomach Orally Once a day, Notes: Alternate DaysTaking Folic Acid 800 MCG Tablet 1 tablet Orally Once a dayMedication List reviewed and reconciled with the patient * Allergies:?PenicillinChocola te Flavor: Allergyyes[Allergies Verified] Objective: * Vitals:?Ht: 4ft 11in, Wt:126 , BMI:25.45, Shoe size: 6, Ht-cm: 149.86 cm, Wt-k.15 kg. * Examination: ???Vascular: ?DP PULSES(B):? 1/4, B/L.?PT PULSES(B):? 0/4, B/L.?CAPILLARY FILL TIME:? delayed, all digits, B/L.?TROPHIC CONDITION-TEXTURE/ELASTICITY/TURGOR/HAIR GROWTH(B):? decreased, B/L.?TEMPERTURE GRADIENT(C):? decreased, cool to cool, proximal to distal, B/L.?PIGMENTATION:?pale, B/L.?CLAUDICATION(C):?denies, B/L.?REST PAIN:?denies, B/L.?Nails: ?NAILS are:? Elongated, overgrown, dystrophic, lytic, greater than 3mm thick, discolored and friable with crumbly malodorous subungual debris, with pain on palpation 1-5 B/L.?Dermatologic: ?SKIN FINDINGS:? Skin exam reveals Keratotic lesion(s) located at TA T2 T3 T5 T7 Heel(s) B/L.?VERRUCA:?Reveals a Single , multi-loculated , mosaic-patterned, round, raised, flat-topped, petechial bleeding papule(s), with cauliflower appearance and interruption of skin lines, pain to lateral compression, and size estimated at 5mm diameter lateral Heel RIGHT.?Orthopedic: ?MUSCLE STRENGTH:?5/5 all groups in a symmetrical fashion, B/L.?DIGITAL DEFORMITIES:?Digital contracture, PIPJ, 2-5 B/L, incompl-reducible to push-up test, no over, nor underlapping, with evidence of shoe producing skin irritation.?Neurological: ?SENSORY:?Neurological exam reveals intact sensorium, pain sensation normal, vibration sensation intact, pinprick sensation is normal in the lower extremities, Pt denies, anesthesia, burning, paresthesia, tingling, B/L.?General Examination: ?GENERAL APPEARANCE:?Reveals a pleasant, alert, well nourished, well- developed, well hydrated individual, who demonstrates proper attention to hygiene/body habitus, and is in no acute distress, Pt serves as own historian for office visit today.?ORIENTED:?person, place, and time.?FOOT EXAM:?Footwear Evaluation? Assessment: * Assessment: 1.?Plantar wart - B07.0?2.?T inea unguium - B35.1 (Primary)?3.?Other hammer toe(s) (acquired), right foot - M20.41, Chronic problem, Worse (4),Rx Management (4)?4.?Atherosclerosis of [place] artery of both lower extremities, with unspecified presence of clinical manifestation - I70.203?5.?Pain in right toe(s) - M79.674?6.?Pain in left toe(s) - M79.675?7.?Right foot pain - M79.671?8.?Other hammer toe(s) (acquired), left foot - M20.42, Chronic problem, Worse (4),Rx Management (4)? Plan: * Treatment: * Procedures:?Debride Nail 6-10:?Nail debridement?Nail debridement performed extensively to reduce/remove overall nail length, girth, thickness, subungual debris, and necrotic tissue, by manual and electrical means through the use of a nail nipper and/or dremel, to more viable healthy nail plate or bed tissue 1-5. Silver nitrate used for any petechial bleeding as necessary. Patient chooses, no pharmaceutical tx (22917).?Keratoma Treatment:?Parring or Cutting of Benign Hyperkeratotic Lesion(s)?48944 ( More than 4 Lesions ) - The Benign hyperkeratotic lesions, as described above were pared, and/or cut utilizing a sterile 15 blade, tissue nippers, and/or dremel, Q8.?Wart Treatment:?Procedure?Verrucae were debrided to pin-point bleeding margins with sterile 15 surgical blade, silver nitrate chemocautery applied, recomm. immune-boosting meds such as zinc, recomm. follow up with topical chemosurgical agents, Pt defers any other forms of tx (30965).? * Procedure Codes:?57750 DEBRI DE NAIL, 6 OR MORE, Modifiers: XS 69814 Wart Destruction, 1-14, Modifiers: XS 61249 TRIM SKIN LESIONS, OVER 4, Modifiers: XS , Q8 * Follow Up:?2 Months * Images: * Sign off status: Completed true * Provider:?Diana Merritt DPM Date:? Generated for Shey whitlock/Magalie/Shane on:?06/05/2024 07:32 AM EST History and Physical Notes * HPI (History of Present Illness) Category Sub-Category Detail Notes Category Not es Skin problems Pt States PCP Visit: DATE: 06/22/2023 At Risk footcare Pt States Last PCP Visit: Date: Examination Category Sub-Category Detail Notes Category Not es Neurological SENSORY: Neurological exa m reveals intact sensorium, pain sensation normal, vibration sensation intact, pinprick sensation is normal in the lower extremities, Pt denies, anesthesia, burning, paresthesia, tingling, B/L Dermatologic SKIN FINDINGS: Skin exam reveal s Keratotic lesion(s) located at TA T2 T3 T5 T7 Heel(s) B/L VERRUCA: Reveals a Single , m ulti-loculated , mosaic-patterned, round, raised, flat-topped, petechial bleeding papule(s), with cauliflower appearance and interruption of skin lines, pain to lateral compression, and size estimated at 5mm diameter lateral Heel RIGHT Orthopedic DIGITAL DEFORMITIES: Digital con tracture, PIPJ, 2-5 B/L, incompl- reducible to push-up test, no over, nor underlapping, with evidence of shoe producing skin irritation MUSCLE STRENGTH: 5/5 all groups in a symmetrical fashion, B/L General Examination GENERAL APPEARANCE: Reveals a pleasant, alert, well nourished, well-developed, well hydrated individual, who demonstrates proper attention to hygiene/body habitus, and is in no acute distress, Pt serves as own historian for office visit today FOOT EXAM: Lower Extremity Neurological Exa m performed:: Yes ORIENTED: person, place, and t lisa Footwear Evaluation Footwear Evaluation performe d:: Yes Vascular DP PULSES (B): 1/4, B/L PT PULSES (B): 0/4, B/L CAPILLARY FILL TIME: delayed, all digits , B/L TEMPERTURE GRADIENT (C): decreased, cool to cool, proximal to distal, B/L TROPHIC CONDITION-TEXTURE/ELASTICITY/TURGOR/HAIR GROWTH (B): decreased, B/L CLAUDICATION (C): denies, B/L REST PAIN: denies, B/L PIGMENTATION: pale, B/L Nails NAILS are: Elongated, overg rown, dystrophic, lytic, greater than 3mm thick, discolored and friable with crumbly malodorous subungual debris, with pain on palpation 1-5 B/L
--- OUTSIDE RECORDS SUMMARY | 2024-06-05 07:32 | XMS_ITS ---
Author Organization [facility] Address [address] [place] [address] Care Team Providers Care Analytical Chemist Name Role Phone John SCHRADER, Jina Sawyer Primary Care Provider Un available Diana Merritt Unavailable [phone] Allergies Allergen (clinical drug ingredient) Drug/Non Drug Allergy documented on EMR Reaction Allergy Type Onset Date Status Chocolate Flavor Unknown Drug Allergy Active Penicillin Unknown Drug Allergy Active REASON FOR VISIT At Risk Footcare, Painful Nail(s) aggrevated by shoes and causing difficulty standing/walking., Wart(s) Medications Medication SIG (Take, Route, Frequency, Duration) Notes Start Date End Date Status Simvastatin 10 MG 1 tablet in the evening Orally Once a day for 30 days Active Folic Acid 800 MCG 1 tablet Orally Once a day for 30 day(s) Active Levothyroxine Sodium 50 MCG 1 tablet in the morning on an empty stomach Orally Once a day for 30 day(s) Alternate Days Active Levothyroxine Sodium 75 MCG 1 tablet in the morning on an empty stomach Orally Once a day for 30 day(s) Alternate days Active Vitamin D3 25 MCG (1000 UT) as directed Active Vitamin C 500 MG as directed Orally Active Citrucel Active Saline Nasal [place] A ctive Calcium + Vitamin D3 Active Glucosamine Sulfate Active Loratadine 10 MG 1 tablet Orally Once a day for 30 day(s) Active Flonase Active Alendronate Sodium 70 MG/75ML 75 mL 30 minutes before the first food, beverage or medicine of the day with plain water Orally for 30 day(s) Not-Taking Midodrine HCl 5 MG 1 tablet Orally three times a day for 30 days Active Prolia every 6 months Activ e Prolia 60 MG/ML as directed Subcutaneous Not-Taking Social History Tobacco Use: Social History Observation [...] an other tobacco user? No Vital Signs Blood pressure systolic 100 mm Hg 04/13/20 24 Blood pressure diastolic 60 mm Hg 024 Height 4ft 11in in 04/13/2024 Weight 126 lbs 04/13/2024 BMI 25.45 kg/m2 04/13/2024 Encounters Encounter Location Date Provider Diagnosis [facility] [address] [place] [address] 04/13/2024 Diana Merritt Plantar wart B07.0 ; Tinea unguium B35.1 ; Atherosclerosis of [place] artery of both lower extremities, with unspecified presence of clinical manifestation I70.203 ; Pain in right toe(s) M79.674 ; Pain in left toe(s) M79.675 and Right foot pain M79.671 Assessments Encounter Date Diagnosis (ICD Code) Assessment Notes Treatment Notes Treatment Clinical Notes Section Notes 04/13/2024 Plantar wart (ICD-10 - B07.0) 04/13/2024 Tinea unguium (ICD-10 - B35.1) 04/13/2024 Atherosclerosis of [place] artery of both lower extremities, with unspecified presence of clinical manifestation (ICD-10 - I70.203) 04/13/2024 Pain in right toe(s) (ICD-10 - M79.674) 04/13/2024 Pain in left toe(s) (ICD-10 - M79.675) 04/13/2024 Right foot pain (ICD-10 - M79.671) Plan Of Treatment Next Appt Details Follow Up: 2 Months, Reason: Provider Name:Diana mckeon, 06/29/2024 09:15:00 AM, [address] [place], [address], Procedure Notes * Category Sub-Category Detail Notes Wart Treatment Procedure Verrucae were de brided to pin-point bleeding margins with sterile 15 surgical blade, silver nitrate chemocautery applied, recomm. immune-boosting meds such as zinc, recomm. follow up with topical chemosurgical agents, Pt defers any other forms of tx (00193) Debride Nail 6-10 Nail debridement Due to the cl inical pathology outlined in the exam findings, performance of this nail treatment is medically necessary as its management by an unskilled/untrained nonprofessional would put this patients foot and overall health at risk. Therefore, debridement to affected nail(s), as described in exam, was performed extensively to reduce/remove overall nail length, girth, thickness, subungual debris, and necrotic tissue, by manual and/or electrical means through the use of a nail nipper and/or dremel-type grinder and honer operator automatic, to a more viable healthy nail plate or bed tissue 6-10 nails in total. Silver nitrate was used for any petechial bleeding as necessary. Definitive antifungal treatment options, both pharmaceutical and surgical, have been reviewed and discussed with the patient. The patient solely prefers the use of intermittent/as needed professional debridement services for their nail condition and understands the need for additional periodic treatments to maintain effectiveness in symptomatic relief - 54643 Keratoma Treatment Parring or Cutting o f Benign Hyperkeratotic Lesion(s) (-57) More than 4 Lesions - Due to the at risk nature of the patients medical condition as documented in the exam findings, performance of this keratoderma treatment is medically necessary as its management by an unskilled/untrained nonprofessional would put this patients foot and overall health at risk. Therefore, the benign hyperkeratotic lesions, ( 7) in total, locations as stated and described in the exam, were pared, and/or cut utilizing a sterile 15 blade, tissue nippers, and/or power dremel instrumentation - 86338 Progress Notes * Aida TURPINOB:1954 (69 yo F)Acc No.[id number]:04/13/2024 Progress Note Patient:?Aida TURPIN Provider:?Diana Merritt DPM :1955???Age:69 Y???Sex:Female D ate:04/13/2024 Address:[address], [id number] Pcp:Rose Mary Motley Subjective: * Chief Complaints: * ???At Risk FootcarePainful N ail(s) aggrevated by shoes and causing difficulty standing/walking.Wart(s) * HPI: ???At Risk footcare:?Pt States Last PCP Visit:?Date?12/08/2023 ???Skin problems:?Pt States PCP Visit: ?DATE?12/08/2023 * ROS:?General/Constitutional:?Nausea?denies.?Vomiting?denies.?Hunger Thirst?denies.?Loss appetite?denies.?Chills?denies.?Fatigue?denies.?Fever?denies.?Night Sweats?denies.?Unexplained weight loss?denies.?Unexplained weight gain?denies.?HEENTM:?Dentures?denies.?Dizziness?denies.?Glasses/contacts?admits.?Retinopathy?de nies.?Blurred/double vision?denies.?TMJ?denies.?Discharge/drainage?denies.?Implants?denies.?Sore throat?denies.?Dental implants?admits.?Hard of hearing ?admits.?Difficulty chewing/swallowing/speaking?denies.?Nose bleeds?denies.?Sore mouth?denies.?Respiratory:?On Oxygen?denies.?Pneumonia/pleurisy?denies.?Bronchitis?denies.?Emphysema?denies.?C oughing?denies.?Cough blood?denies.?Shortness of breath?denies.?Wheezing?denies.?Cardiovascular:?Pacemaker?denies.?MVP?denies.?WPW?denies.?CHF?denies.?Heart attack?denies.?Septal defect?denies.?Rapid beat?denies.?Chest pain ?denies.?Atrial Fib.?denies.?Murmur/Palpitations?denies.?Gastrointestinal:?Hemorrhoids?denies.?Stomach/Abdominal pain?denies.?Dark blood stool?denies.?Irritable bowel ?denies.?Constipation?denies.?Diarrhea?denies.?Hematology:?Swelling?denies.?Clots?denies.?Varicose Veins?denies.?Bruising?denies.?Bleeding problem?denies.?Genitourinary:?Blood urine?denies.?Frequent/Painfu/urination/bladder control?denies.?Kidney stones?denies.?Infection (UTI)?denies.?Nephropathy?denies.?sex trans dis (STD)?denies.?Prostate?denies.?Musculoskeletal:?Hammertoes?denies.?Bunions?denies.?Back Pain?denies.?Muscle Cramps/ Resting?denies.?Muscle cramps / walking?denies.?Generalized aches and pains?denies.?Weakness?denies.?Integ.:?Tinoco?denies.?Scars?denies.?Corns/calluses?denies.?Ingrown nails?denies.?Painful nails?denies.?Open Sores?denies.?Rashes?denies.?Neurologic:?Difficulty sleeping?denies.?Brain disorder?denies.?Numbness?denies.?Balance trouble?denies.?Confusion?denies.?Fainting/blackouts?denies.?Tingling?denies.?Tr emors?denies.? * Medical History:? * Surgical History:?Cataracts 02/28/2016cataract [...] alcohol in the past year??No ?Points?0 ?Interpretation?Negative ???Miscellaneous:?Caffeine: no, decaf tea. ?Children: no. ?Exercise: yes, walking, 40 50 mins a day. ?Marital status: single. ?Occupation: Retired-office work. * Medications:?TakingProlia , Notes to Pharmacist: every 6 monthsMidodrine HCl 5 MG Tablet 1 tablet Orally three times a day Flonase Loratadine 10 MG Tablet 1 tablet Orally Once a day Glucosamine Sulfate Calcium + Vitamin D3 Saline Nasal [place] Citrucel Vitamin C 500 MG Capsule as directed Orally Simvastatin 10 MG Tablet 1 tablet in the evening Orally Once a day Vitamin D3 25 MCG (1000 UT) Capsule as directed Levothyroxine Sodium 75 MCG Tablet 1 tablet in the morning on an empty stomach Orally Once a day , Notes to Pharmacist: Alternate daysLevothyroxine Sodium 50 MCG Tablet 1 tablet in the morning on an empty stomach Orally Once a day , Notes to Pharmacist: Alternate DaysFolic Acid 800 MCG Tablet 1 tablet Orally Once a day Taking Prolia , Notes to Pharmacist: every 6 monthsTaking Midodrine HCl 5 MG Tablet 1 tablet Orally three times a day Taking Flonase Taking Loratadine 10 MG Tablet 1 tablet Orally Once a day Taking Glucosamine Sulfate Taking Calcium + Vitamin D3 Taking Saline Nasal [place] Taking Citrucel Taking Vitamin C 500 MG Capsule as directed Orally Taking Simvastatin 10 MG Tablet 1 tablet in the evening Orally Once a day Taking Vitamin D3 25 MCG (1000 UT) Capsule as directed Taking Levothyroxine Sodium 75 MCG Tablet 1 tablet in the morning on an empty stomach Orally Once a day , Notes to Pharmacist: Alternate daysTaking Levothyroxine Sodium 50 MCG Tablet 1 tablet in the morning on an empty stomach Orally Once a day , Notes to Pharmacist: Alternate DaysTaking Folic Acid 800 MCG Tablet 1 tablet Orally Once a day Not- Taking/PRNProlia 60 MG/ML Solution Prefilled Syringe as directed Subcutaneous Alendronate Sodium 70 MG/75ML Solution 75 mL 30 minutes before the first food, beverage or medicine of the day with plain water Orally Medication List reviewed and reconciled with the patientNot-Taking/PRN Prolia 60 MG/ML Solution Prefilled Syringe as directed Subcutaneous Not-Taking/PRN Alendronate Sodium 70 MG/75ML Solution 75 mL 30 minutes before the first food, beverage or medicine of the day with plain water Orally Medication List reviewed and reconciled with the patient * Allergies:?PenicillinChocola te Flavor: Allergyyes[Allergies Verified] Objective: * Vitals:?Ht: 4ft 11in, Wt:126 , BMI:25.45, Shoe size: 6, BP:100/60mm Hg, Ht-cm: 149.86 cm, Wt-k.15 kg. * Examination: [...] to lateral compression, and size estimated at 3mm diameter plantar?lateral Heel RIGHT.?Orthopedic: ?MUSCLE STRENGTH:?5/5 all groups in [...] Evaluation? Assessment: * Assessment: 1.?Plantar wart - B07.0???2. ?Tinea unguium - B35.1 (Primary)???3.?Atherosclerosis of [place] artery of both lower extremities, with unspecified presence of clinical manifestation - I70.203???4.?Pain in right toe(s) - M79.674???5.?Pain in left toe(s) - M79.675???6.?Right foot pain - M79.671??? Plan: * Treatment: * Procedures:?Debride Nail 6-10:?Nail debridement?Due to the clinical pathology outlined in the exam findings, performance of this nail treatment is medically necessary as its management by an unskilled/untrained nonprofessional would put this patients foot and overall health at risk. Therefore, debridement to affected nail(s), as described in exam, was performed extensively to reduce/remove overall nail length, girth, thickness, subungual debris, and necrotic tissue, by manual and/or electrical means through the use of a nail nipper and/or dremel-type grinder and honer operator automatic, to a more viable healthy nail plate or bed tissue 6-10 nails in total. Silver nitrate was used for any petechial bleeding as necessary. Definitive antifungal treatment options, both pharmaceutical and surgical, have been reviewed and discussed with the patient. The patient solely prefers the use of intermittent/as needed professional debridement services for their nail condition and understands the need for additional periodic treatments to maintain effectiveness in symptomatic relief - 06599.?Keratoma Treatment:?Parring or Cutting of Benign Hyperkeratotic Lesion(s)?(-57) More than 4 Lesions - Due to the at risk nature of the patients medical condition as documented in the exam findings, performance of this keratoderma treatment is medically necessary as its management by an unskilled/untrained nonprofessional would put this patients foot and overall health at risk. Therefore, the benign hyperkeratotic lesions, ( 7) in total, locations as stated and described in the exam, were pared, and/or cut utilizing a sterile 15 blade, tissue nippers, and/or power dremel instrumentation - 20850.?Wart Treatment:?Procedure?Verrucae were debrided to pin-point bleeding margins with sterile 15 surgical blade, silver nitrate chemocautery applied, recomm. immune-boosting meds such as zinc, recomm. follow up with topical chemosurgical agents, Pt defers any other forms of tx (96112).? * Procedure Codes:?65598 DEBRI DE NAIL, 6 OR MORE, Modifiers: XS 95376 Wart Destruction, 1-14, Modifiers: XS 81023 TRIM SKIN LESIONS, OVER 4, Modifiers: XS , Q8 * Follow Up:?2 Months * Images: * Sign off status: Completed true * Provider:?Diana Merritt DPRose Mary Date:?10/2023 Generated for Shey whitlock/Magalie/eTransmitting on:?06/05/2024 07:32 AM EST History and Physical Notes * HPI (History of Present Illness) Category Sub-Category Detail Notes Category Not es Skin problems Pt States PCP Visit: DATE: 12/08/2023 At Risk footcare Pt States Last PCP [...] to lateral compression, and size estimated at 3mm diameter plantar lateral Heel RIGHT Orthopedic DIGITAL DEFORMITIES: Digital [...]
--- OUTSIDE RECORDS SUMMARY | 2024-06-05 07:32 | XMS_ITS ---
Author Organization [facility] Address [address] [place] [address] Care Team Providers Care Powder Expert Name Role Phone John SCHRADER, Jina Sawyer Primary Care Provider Un available Diana Merritt Unavailable [phone] REASON FOR VISIT 12/28/23 Payment Encounters Encounter Location Date Provider Diagnosis [address] [address] 02/23/2024 Diana Merritt Plan Of Treatment Next Appt Details Provider Name:Diana mckeon, 06/29/2024 09:15:00 AM, [address] [place] [address], [phone], Progress Notes * Aida TURPINOB:1954 (68 yo F)Acc No.[id number]:02/23/2024 Patient:?Aida Turpin :1955???Age:68 Y???Sex:Female Address:[place], [address] * true * Date:? Generated for Printi ng/Faxing/eTransmitting on:?06/05/2024 07:32 AM EST
--- OUTSIDE RECORDS SUMMARY | 2024-06-05 07:32 | XMS_ITS | Patient Health Record ---
[facility] Address [address] [facility] [place] [address] Care Team Providers Care Foundry Worker Apprentice Name Role Phone John SCHRADER, Jina Sawyer Primary Care Provider Un available Diana Merritt Unavailable [phone] Yousif Amado Unavailable [phone] Addi Lyn Unavailable [phone] Allergies Allergen (clinical drug ingredient) Drug/Non Drug Allergy documented on EMR Reaction Allergy Type Onset Date Status Chocolate Flavor Unknown Drug Allergy Active Penicillin Unknown Drug Allergy Active Reason For Referral No Information Medications Medication SIG (Take, Route, Frequency, Duration) Notes Start Date End Date Status Prolia 60 MG/ML as directed Subcutaneous Not-Taking Simvastatin 10 MG 1 tablet in the evening Orally Once a day for 30 days Active Vitamin C 500 MG as directed Orally Active Citrucel Active Saline Nasal [place] A ctive Calcium + Vitamin D3 Active Glucosamine Sulfate Active Loratadine 10 MG 1 tablet Orally Once a day for 30 day(s) Active Flonase Active Folic Acid 800 MCG 1 tablet Orally Once a day for 30 day(s) Active Alendronate Sodium 70 MG/75ML 75 mL 30 minutes before the first food, beverage or medicine of the day with plain water Orally for 30 day(s) Not-Taking Levothyroxine Sodium 50 MCG 1 tablet in the morning on an empty stomach Orally Once a day for 30 day(s) Alternate Days Active Midodrine HCl 5 MG 1 tablet Orally three times a day for 30 days Active Levothyroxine Sodium 75 MCG 1 tablet in the morning on an empty stomach Orally Once a day for 30 day(s) Alternate days Active Prolia every 6 months Activ e Vitamin D3 25 MCG (1000 UT) as directed Active Social History Tobacco Use: Social History [...] Are you an other tobacco user? No Problems Problem Type SNOMED Code ICD Code Onset Dates Problem Status W/U Status Risk Notes Problem Acquired hammer toe of right foot (14084448483 61682) Other hammer toe(s) (acquired), right foot (M20.41) Active confirmed Problem Acquired hammer toe of left foot (41577076638 25917) Other hammer toe(s) (acquired), left foot (M20.42) Active confirmed Problem Plantar wart (62906052) Plantar wart (B07.0) Active confirmed Problem Atherosclerosis of [place] artery of both lower extremities, with unspecified presence of clinical manifestation (I70.203) Active confirmed Vital Signs Blood pressure diastolic 60 mm Hg 04/13/2024 Height 4ft 11in in 04/13/2024 Blood pressure systolic 100 mm Hg 04/13/2024 Weight 126 lbs 04/13/2024 BMI 25.45 kg/m2 04/13/2024 Encounters Encounter Location Date Provider Diagnosis [address] [address] 08/26/2023 Diana Perica Plantar wart B07.0 ; Other hammer toe(s) (acquired), right foot M20.41 ; Atherosclerosis of [place] artery of both lower extremities, with unspecified presence of clinical manifestation I70.203 ; Tinea unguium B35.1 ; Pain in right toe(s) M79.674 ; Pain in left toe(s) M79.675 ; Right foot pain M79.671 and Other hammer toe(s) (acquired), left foot M20.[address] [address] 11/22/2023 Diana Perica Plantar wart B07.0 ; Other hammer toe(s) (acquired), right foot M20.41 ; Atherosclerosis of [place] artery of both lower extremities, with unspecified presence of clinical manifestation I70.203 ; Tinea unguium B35.1 ; Pain in right toe(s) M79.674 ; Pain in left toe(s) M79.675 ; Right foot pain M79.671 and Other hammer toe(s) (acquired), left foot M20.42 [facility] [address] [address] 02/03/2024 Diana Perica Plantar wart B07.0 ; Tinea unguium B35.1 ; Other hammer toe(s) (acquired), right foot M20.41 ; Atherosclerosis of [place] artery of both lower extremities, with unspecified presence of clinical manifestation I70.203 ; Pain in right toe(s) M79.674 ; Pain in left toe(s) M79.675 ; Right foot pain M79.671 and Other hammer toe(s) (acquired), left foot M20.[address] [facility] [address] 04/13/2024 Diana Perica Plantar wart B07.0 ; Tinea unguium B35.1 ; Atherosclerosis of [place] artery of both lower extremities, with unspecified presence of clinical manifestation I70.203 ; Pain in right toe(s) M79.674 ; Pain in left toe(s) M79.675 and Right foot pain M79.[address] [facility] [address] 06/20/2023 [facility] [address] 11/22/2023 Diana Merritt [address] [address] 02/23/2024 Diana Merritt Assessments Encounter Date Diagnosis (ICD Code) Assessment Notes Treatment Notes Treatment Clinical Notes Section Notes 08/26/2023 Other hammer toe(s) (acquired), right foot (ICD-10 - M20.41) 08/26/2023 Plantar wart (ICD-10 - B07.0) 11/22/2023 Other hammer toe(s) (acquired), right foot (ICD-10 - M20.41) 11/22/2023 Plantar wart (ICD-10 - B07.0) 02/03/2024 Plantar wart (ICD-10 - B07.0) 02/03/2024 Tinea unguium (ICD-10 - B35.1) 04/13/2024 Plantar wart (ICD-10 - B07.0) 04/13/2024 Tinea unguium (ICD-10 - B35.1) 08/26/2023 Atherosclerosis of [place] artery of both lower extremities, with unspecified presence of clinical manifestation (ICD-10 - I70.203) 04/13/2024 Atherosclerosis of [place] artery of both lower extremities, with unspecified presence of clinical manifestation (ICD-10 - I70.203) 11/22/2023 Atherosclerosis of [place] artery of both lower extremities, with unspecified presence of clinical manifestation (ICD-10 - I70.203) 02/03/2024 Other hammer toe(s) (acquired), right foot (ICD-10 - M20.41) 11/22/2023 Tinea unguium (ICD-10 - B35.1) 08/26/2023 Tinea unguium (ICD-10 - B35.1) 02/03/2024 Atherosclerosis of [place] artery of both lower extremities, with unspecified presence of clinical manifestation (ICD-10 - I70.203) 04/13/2024 Pain in right toe(s) (ICD-10 - M79.674) 04/13/2024 Pain in left toe(s) (ICD-10 - M79.675) 02/03/2024 Pain in right toe(s) (ICD-10 - M79.674) 08/26/2023 Pain in right toe(s) (ICD-10 - M79.674) 11/22/2023 Pain in right toe(s) (ICD-10 - M79.674) 11/22/2023 Pain in left toe(s) (ICD-10 - M79.675) 02/03/2024 Pain in left toe(s) (ICD-10 - M79.675) 08/26/2023 Pain in left toe(s) (ICD-10 - M79.675) 04/13/2024 Right foot pain (ICD-10 - M79.671) 02/03/2024 Right foot pain (ICD-10 - M79.671) 08/26/2023 Right foot pain (ICD-10 - M79.671) 11/22/2023 Right foot pain (ICD-10 - M79.671) 02/03/2024 Other hammer toe(s) (acquired), left foot (ICD-10 - M20.42) 11/22/2023 Other hammer toe(s) (acquired), left foot (ICD-10 - M20.42) 08/26/2023 Other hammer toe(s) (acquired), left foot (ICD-10 - M20.42) Plan Of Treatment Next Appt Details Provider Name:Diana mckeon, 06/29/2024 09:15:00 AM, [address] [place] [address], [phone], Insurance Providers Payer Name Payer Address Payer Phone Subscriber Number Group Number Insured Name Patient Relationship to Insured Coverage Start Date Coverage End Date [facility] [address] [place] [address] [id number] Aida Turpin Self - patient is the insured Medical (General) History Medical History History ICD Code Arthritis Asthma Cataracts High Blood Pressure Osteoporosis Measels Surgical History Surgery Date(Month/Year) Cataracts 02/28/2016 cataract surgery 01/2024
== END 2024-06-05 07:30 | disposition home or self-care (01) ==
LOC: HO.MAMMO 07:29
PROVIDERS: PCP Internal Medicine; Visit Provider Internal Medicine
DX: Z12.31 Encounter for screening mammogram for malignant neoplasm of breast (principal)
CPT/HCPCS: 77063; 77067

== ENCOUNTER → 2024-06-05 07:45 | Outpatient (BNV) | payer MEDICARE, SELFPAY | PROVIDERS: PCP Internal Medicine; Visit Provider Internal Medicine | DX: Z12.31 Encounter for screening mammogram for malignant neoplasm of breast (principal) | CPT/HCPCS: 77063; 77067 ==

== ENCOUNTER 2024-06-19 06:19 | Outpatient (REF) | payer MEDICARE, SELFPAY ==
[2024-06-19 10:46] LABS: Alanine Aminotransferase 31 U/L (0-31); Anion Gap 11 (12-20); Aspartate Amino Transferase 33 U/L (5-31); Blood Urea Nitrogen 17 mg/dL (9-16); Calcium 9.2 mg/dL (8.4-10.2); Carbon Dioxide 28 mmol/L (22-29); Chloride 106 mmol/L (96-108); Cholesterol 193 mg/dL (<200); Estimated Glomerular Filt Rate > 60; Glucose Fasting 76 mg/dL (60-99); HDL Cholesterol 84 mg/dL (>40); LDL Cholesterol Calculated 99 mg/dL (<100); Potassium 3.7 mmol/L (3.3-5.1); Sodium 141 mmol/L (135-145); Triglycerides 53 mg/dL (<150)
[2024-06-19 10:55] LABS: Estimated Average Glucose 105 mg/dL; Hemoglobin A1C 131.8889 umol/L; Hemoglobin A1c % 5.3 % (<6.0); Total Hemoglobin (HGBA1C) 3826.9684 umol/L
[2024-06-19 11:11] LABS: Free T4 (Free Thyroxine) 1.23 ng/dL (0.71-1.85); Thyroid Stimulating Hormone 1.49 uIU/mL (0.32-4.0)
== END 2024-06-19 06:20 | disposition home or self-care (01) ==
LOC: HO.HMGCLDS 06:19
PROVIDERS: PCP Internal Medicine; Visit Provider Internal Medicine
DX: R73.01 Impaired fasting glucose (principal); E78.5 Hyperlipidemia, unspecified; E03.9 Hypothyroidism, unspecified
CPT/HCPCS: 36415; 80048; 80061; 83036; 84439; 84443; 84450; 84460

== ENCOUNTER 2024-06-27 08:22 | Outpatient (AMB) | payer MEDICARE, SELFPAY ==
[2024-06-27 08:24] VITALS: BP 122/72; PULSE 58; RESP 14; TEMP 36.7; O2SAT 99; BMI 26.1
--- NOTE | 2024-06-27 08:24 | MHC.PC.OV ---
Vital Signs 06/27/24 08:24 Height 4 ft 11 in Weight 129 lb BMI 26.1 BP 122/72 Blood Pressure Location Lt brachial Position Sitting Respiration 14 Pulse 58 Pulse Source Pulse Oximeter Temp 98.1 F Temp Source Oral Pulse Oximetry (%) 99 Oxygen Delivery Method Room Air Intake Visit Reasons: PE Intake Note: Pt is here today for her PE: last mammogram 06/05/24, bone density scan 05/31/23, colonoscopy 02/06/20 Allergies Chocolate Allergy (Unknown, Verified 06/27/24 08:51) Hives Penicillins [PENICILLINS] Allergy (Unknown, Verified 06/27/24 08:51) RASH rsv vaccine Allergy (Intermediate, Uncoded 06/27/24 08:51) Diffuse rash Medication List - Last Reconciled 06/27/24 by Jina Lopez MD ascorbate calcium (vitamin C) 500 mg PO DAILY calcium carbonate 600 mg PO DAILY cholecalciferol (vitamin D3) 25 mcg PO DAILY denosumab (Prolia) 60 mg subcut [id number] fluticasone propionate 50 mcg/actuation (Flonase Allergy Relief) 1 spray intranasal DAILY folic acid 0.4 mg PO DAILY glucosamine HCl 1,000 mg (2 x 500 mg) PO DAILY levothyroxine 75 mcg PO .Every other morning levothyroxine 50 mcg PO .Every other morning loratadine 10 mg PO DAILY methylcellulose (laxative) (Citrucel) 500 mg PO DAILY midodrine 5 mg PO TID 90 days simvastatin 10 mg PO DAILY 3 months sodium chloride 0.65% (Saline Mist) 1 spray intranasal BID PRN Tobacco use date assessed: 06/27/24 Fall risk assessment: No Falls in past year Last assessed Fall Risk: 06/27/24 Dental Screening Dental Screen Date: 06/27/24 Did you have a dental visit in the last 12 months?: Yes Did you have a dental problem in the last 6 months where you did not have access to dental care?: No Was dental information given to patient?: Patient has dentist HPI PE HPI Details 69 year-old lady with history of dyslipidemia, acquired hypothyroidism, osteoporosis, recurrent syncope with orthostatic hypotension, better on midodrine , bilateral hearing loss, and impaired fasting glucose, here today for her follow-up. She states that she has been feeling well, with no new complaints, has had no episodes lightheadedness or syncopal attacks ever since she started taking midodrine. She is currently on Prolia given by [facility] due for her repeat bone density scan, has an appointment with new word processor technician later this year scheduled already. Latest fasting labs showed fasting lipids, fasting blood sugar levels, electrolytes and liver function all within normal limits. Her thyroid levels are also within normal limits on current alternating dose of levothyroxine at 50 mcg and 75 mcg every other day. She continues to work part-time twice a week during tax season [facility] Medical History (Updated 06/27/24 @ 09:17 by Jina Lopez MD) History of orthostatic hypotension Encounter for monitoring alendronate therapy Osteoporosis of femur without pathological fracture Preoperative examination Osteopenia of left femoral neck Recurrent syncope Hx of syncope Palpable thyroid Postmenopause Irritable bowel syndrome Osteoporosis Hearing loss, bilateral Seasonal allergic rhinitis Impaired fasting glucose Dyslipidemia Acquired hypothyroidism Surgical History Hx of arthroscopy History of carpal tunnel surgery of right wrist Hx of dilation and curettage Hx of nasal septoplasty Hx of cholecystectomy History of colonoscopy Family History Mother Breast cancer CAD (coronary artery disease) CVD (cardiovascular disease) Father Medical history non-contributory Brother No problems noted. Social History Household Members Other:: father Housing: House Are you a primary life care planner to a significant other at home: No Do you presently have visiting nurse or other home services: No Alcohol intake: never Patient Tobacco Use Status: Never used Tobacco e-Cigarette/Vaping Use: Never Used Advance Directives Date on File: 03/11/22 Current occupational status: retired Cognitive needs: No Hearing needs: Yes Vision needs: Yes Questionnaire Thrive Questionnaire Date Thrive assessed: 06/20/24 I am a: Patient What is your living situation today?: I have a steady place to live Within the past 12 months, did the food you bought not last and you didn't have the money to get more?: I choose not to answer this question Within the past 12 months, did you worry whether your food would run out before you got money to buy more?: I choose not to answer this question Do you have trouble paying for medicines?: No Do you have trouble getting transportation to medical appointments?: I choose not to answer this question Do you have trouble paying your heating and electricity bill?: I choose not to answer this question Do you have trouble taking care of your child, family member or friend?: I choose not to answer this question Do you have trouble with day-to-day activities such as bathing, preparing meals, shopping, managing finances, etc.?: No Are you currently unemployed and looking for a job?: I choose not to answer this question Are you interested in more education?: I choose not to answer this question Please select the resources that you would like help with: None Currently or been in a relationship where the following occur: I choose not to answer THRIVE Score: 0 AUDIT C Alcohol Use Questionnaire (AUDIT-C) 1. How often do you have a drink containing alcohol?: Never 3. How often do you have six or more drinks on one occasion?: Never Total Score: 0 KITTY-7 AMB Questionnaire KITTY-7 Date KITTY - 7 assessed: 12/14/23 Feeling nervous, anxious, or on edge: 0 = Not at all Not being able to stop or control worryin = Not at all Worrying too much about different things: 0 = Not at all Trouble relaxin = Not at all Being so restless that it is hard to sit still: 0 = Not at all Becoming easily annoyed or irritable: 0 = Not at all Feeling afraid as if something awful might happen: 0 = Not at all Total KITTY-7 score (0-4 normal; 5-9 mild; 10-14 moderate; 15-21 severe): 0 Source: Developed by Drs. Devon Whitten, Monica Blue, Kane Ch and colleagues, with an educational jerman from [employer]. Review of Systems Const Reports no additional complaints Eyes Details: Up-to-date with her eye exam, goes to [facility] Denies no additional complaints ENT Denies no additional complaints and Reports hearing loss (Has hearing aid) Card Reports no additional complaints, Denies chest pain, Denies leg edema, Denies lightheadedness, Denies palpitations and Denies dyspnea Resp Denies no additional complaints and Denies dyspnea GI Denies no additional complaints Reports no additional complaints Musc Reports no additional complaints (No history of fractures) Skin/Breast Reports system reviewed and no additional complaints, except as documented Neuro Denies Abnormal speech present Psych Reports no additional complaints Endo Reports no additional complaints and Denies palpitations Kaveh/Lymph Reports no additional complaints Aller/Immun Reports no additional complaints Physical exam (Primary Care) Vital Signs: Last Vital Signs Temp 98.1 F 06/27/24 08:24 Pulse 58 06/27/24 08:24 Resp 14 06/27/24 08:24 BP 122/72 06/27/24 08:24 Pulse Ox 99 06/27/24 08:24 Oxygen Delivery Method Room Air 06/27/24 08:24 BMI result Body Mass Index 26.1 Tobacco/Smoking Status: Tobacco use Status Tobacco use date assessed 06/27/24 06/27/24 08:26 Patient Tobacco Use Status Never used Tobacco 06/27/24 08:26 e-Cigarette/Vaping Use Never Used 06/27/24 08:26 Thrive Assessment: Date of Thrive Assessment Date Thrive assessed 06/20/24 06/27/24 08:26 Currently or been in a relationship where the following occur: I choose not to answer Const Other: Alert oriented x3, no acute cardiorespiratory distress noted, ambulatory with normal gait Orientation/consciousness: patient oriented x3 HENNM Ears: hearing grossly impaired bilaterally (Wears hearing aids) General nose exam: Normal external nose present Face and sinus: Yes face symmetric Mouth: Normal oral and palatal mucosa present, oropharynx normal and moist mucous membranes Eyes General: appearance normal, both eyes and all related structures Neck Neck: Yes full ROM, Yes no lymphadenopathy, Yes no meningeal signs and Yes supple Thyroid: Thyroid normal Resp Auscultation: clear to auscultation bilaterally Cardio Other: S1-S2 present regular rate and rhythm Bruits: no abdominal aortic bruits GI Inspection: Yes normal to inspection Palpation (GI): No Abdominal aortic bruit present, Soft to palpation, nontender and no guarding Auscultation: normal bowel sounds General: Yes no CVA tenderness Back/Spine/Pelvis Back: no CVA tenderness and No back tenderness Skin General skin exam: no rashes or lesions noted Neuro General: patient oriented x3, gait normal, tone normal, moves all extremities, Normal light touch and pain sensation, no meningeal signs, no focal motor deficits and CN's II-XI intact bilaterally Speech: No Abnormal speech present Extrem General: Yes full ROM, Yes no joint enlargement, Yes no pedal edema and Yes normal gait Psych Appearance: grossly normal and well kempt Mental Status: mental status grossly normal Speech and movement: Normal speech and movement present Affect: normal affect Attitude: cooperative Thought process: Normal thought process present Results Reviewed Results Reviewed: Name: Candy Turpin Age/Sex: 69/F : 1955 Unit#: [id number] Attend Dr: Jina Lopez MD Re06/19/24 Status: DEP [facility] Dis[facility]: SPEC : [id number] YEN: 06/19/24 STATUS: COMP REQ : [id number] RECD: 06/19/[address]: Jina Lopez MD COMP: 06/19/24 ENTERED: 06/19/24 [facility] DR: ORDERED: Met Prof Fast, AST, ALT, Lipid Panel, Free T4, TSH Test Result Flag Reference Sodium 141 135-145 mmol/L Potassium 3.7 # 3.3-5.1 mmol/L CL 106 96-108 mmol/L CO2 28 22-29 mmol/L Gap 11 L 12-20 BUN 17 H 9-16 mg/dL Creat 0.63 0.5-1.4 mg/dL eGFR > 60 Chronic Kidney Disease: Estimated GFR < 60 mL/min/1.73m2 Severe Kidney Disease: Estimated GFR < 15 mL/min/1.73m2 FBS 76 60-99 mg/dL CA 9.2 8.4-10.2 mg/dL AST (GOT) 33 H 5-31 U/L ALT (GPT) 31 0-31 U/L Triglyceride 53 <150 mg/dL Desirable Triglyceride: less than 150 mg/dL Borderline High Triglyceride 150-199 mg/dL High Triglyceride: 200-499 mg/dL Very High Triglyceride: greater than or equal to 5OO mg/dL Cholesterol 193 <200 mg/dL Desirable Cholesterol: less than 200 mg/dL Borderline High Cholesterol: 200-239 mg/dL High Cholesterol: greater than 239 mg/dL LDL Calculated 99 <100 mg/dL Desirable LDL: less than 100 mg/dL Near Optimal/Above Optimal LDL: 110-129 mg/dL Borderline High LDL: 130-159 mg/dL High LDL: 160-189 mg/dL Very High LDL: greater than or equal to 190 mg/dL HDL 84 >40 mg/dL Desirable HDL: greater than 40 mg/dL Note: This HDL assay may give artificially low results in patients with liver disease. Free T4 1.23 0.71-1.85 ng/dL TSH 3rd Gen. 1.49 0.32-4.0 uIU/mL TSH 3rd Generation ([facility]) Coding Level of Care Code Est Pt Level 4 (76094) Complex EM visit Add On G2211 Diagnoses Dyslipidemia E78.5 Acquired hypothyroidism E03.9 History of orthostatic hypotension Z86.79 Assessment & Plan Assessment & Plan (1) Dyslipidemia: Code(s): E78.5 - Hyperlipidemia, unspecified Category: Medical Plan: Reviewed recent fasting lipid profile with patient with levels within normal limits . Continue simvastatin 10 mg at bedtime , in addition to adherence to low-cholesterol diet and regular exercise, at least 30 minutes 3 to 4 times a week. Advised patient to make healthy food choices, eat more fruits, vegetables, whole grains, wild caught fish and low-fat dairy. Limit amount of meat and fried or fatty food products, as well as processed foods and fast foods. Follow-up scheduled with repeat fasting lipid panel in 6 months. (2) Acquired hypothyroidism: Code(s): E03.9 - Hypothyroidism, unspecified Category: Medical Plan: Latest thyroid levels are within normal limits continue alternating dose of levothyroxine 75 and 50 mcg every other day. Repeat levels again in six-month (3) History of orthostatic hypotension: Code(s): Z86.79 - Personal history of other diseases of the circulatory system Category: Medical Plan: Doing well on midodrine, takes 5 mg 3 times a day Orders: Orders Basic Metabolic Panel Fasting 12/07/24 E03.9 - Hypothyroidism, unspecified, E78.5 - Hyperlipidemia, unspecified, M81.0 - Age-related osteoporosis without current pathological fracture, R73.01 - Impaired fasting glucose, Z86.79 - Personal history of other diseases of the circulatory system Vitamin D 25-OH Total 12/07/24 E03.9 - Hypothyroidism, unspecified, E78.5 - Hyperlipidemia, unspecified, M81.0 - Age-related osteoporosis without current pathological fracture, R73.01 - Impaired fasting glucose, Z86.79 - Personal history of other diseases of the circulatory system Lipid Panel 12/07/24 E03.9 - Hypothyroidism, unspecified, E78.5 - Hyperlipidemia, unspecified, M81.0 - Age-related osteoporosis without current pathological fracture, R73.01 - Impaired fasting glucose, Z86.79 - Personal history of other diseases of the circulatory system Alanine Aminotransferase 12/07/24 E03.9 - Hypothyroidism, unspecified, E78.5 - Hyperlipidemia, unspecified, M81.0 - Age-related osteoporosis without current pathological fracture, R73.01 - Impaired fasting glucose, Z86.79 - Personal history of other diseases of the circulatory system Aspartate Amino Transferase 12/07/24 E03.9 - Hypothyroidism, unspecified, E78.5 - Hyperlipidemia, unspecified, M81.0 - Age-related osteoporosis without current pathological fracture, R73.01 - Impaired fasting glucose, Z86.79 - Personal history of other diseases of the circulatory system Vitamin B12 and Folate 12/07/24 E03.9 - Hypothyroidism, unspecified, E78.5 - Hyperlipidemia, unspecified, M81.0 - Age-related osteoporosis without current pathological fracture, R73.01 - Impaired fasting glucose, Z86.79 - Personal history of other diseases of the circulatory system Thyroid Stimulating Hormone 12/07/24 E03.9 - Hypothyroidism, unspecified, E78.5 - Hyperlipidemia, unspecified, M81.0 - Age-related osteoporosis without current pathological fracture, R73.01 - Impaired fasting glucose, Z86.79 - Personal history of other diseases of the circulatory system Free T4 (Free Thyroxine) 12/07/24 E03.9 - Hypothyroidism, unspecified, E78.5 - Hyperlipidemia, unspecified, M81.0 - Age-related osteoporosis without current pathological fracture, R73.01 - Impaired fasting glucose, Z86.79 - Personal history of other diseases of the circulatory system Medications: Refilled simvastatin 10 mg PO DAILY 3 months 90 tabs 3RF E78.5 - Hyperlipidemia, unspecified levothyroxine 75 mcg PO .Every other morning 45 tabs 4RF levothyroxine Take alternating dose of 50 mcg 75 mcg of levothyroxine every other morning 50 mcg PO .Every other morning 45 tabs 4RF
--- OUTSIDE RECORDS SUMMARY | 2024-06-27 08:25 | XMS_ITS ---
Author Organization [facility] Address [address] [place] [address] Care Team Providers Care Forest Pathology Associate Professor Name Role Phone John SCHRADER, Jina Sawyer Primary Care Provider Un available Diana Merritt Unavailable [phone] REASON FOR VISIT 12/28/23 Payment Encounters Encounter Location Date Provider Diagnosis [address] [address] 02/23/2024 Diana Merritt Plan Of Treatment Next Appt Details Provider Name:Diana mckeon, 06/29/2024 09:15:00 AM, [address] [place] [address], [phone], Progress Notes * Aida TURPINOB:1954 (68 yo F)Acc No.[id number]:02/23/2024 Patient:?Aida Turpin :1955???Age:68 Y???Sex:Female Address:[address] [place], [address] * true * Date:? Generated for Printi ng/Faxing/eTransmitting on:?06/27/2024 08:24 AM EST
--- OUTSIDE RECORDS SUMMARY | 2024-06-27 08:25 | XMS_ITS ---
[facility] Address [address] [place] [address] Care Team Providers Care Terra [place]ta Roofer Helper Name Role Phone John SCHRADER, Jina Sawyer Primary Care Provider Un available Diana Merritt Unavailable [phone] Allergies Allergen (clinical drug ingredient) Drug/Non Drug [...] directed Orally Active Citrucel Active Saline Nasal [place] A ctive Calcium + Vitamin D3 Active [...] 02/03/2024 Encounters Encounter Location Date Provider Diagnosis [facility] [address] [place] [address] 02/03/2024 Diana Merritt Plantar wart B07.0 ; Tinea unguium B35.1 ; Other hammer toe(s) (acquired), right foot M20.41 ; Atherosclerosis of [place] artery of both lower extremities, with unspecified [...] foot (ICD-10 - M20.41) 02/03/2024 Atherosclerosis of [place] artery of both lower extremities, with unspecified [...] Reason: Provider Name:Diana mckeon, 06/29/2024 09:15:00 AM, [address] [place] [address], [phone], Procedure Notes * Category Sub-Category Detail Notes Wart Treatment Procedure Verrucae were de brided to pin-point bleeding margins with sterile 15 surgical blade, silver nitrate chemocautery applied, recomm. immune-boosting meds such as zinc, recomm. follow up with topical chemosurgical agents, Pt defers any other forms of tx (98044) Debride Nail 6-10 Nail debridement Nail debridem ent performed extensively to reduce/remove overall nail length, girth, thickness, subungual debris, and necrotic tissue, by manual and electrical means through the use of a nail nipper and/or dremel, to more viable healthy nail plate or bed tissue 1-5. Silver nitrate used for any petechial bleeding as necessary. Patient chooses, no pharmaceutical tx (00149) Keratoma Treatment Parring or Cutting o f Benign Hyperkeratotic Lesion(s) 96113 ( More than 4 Lesions ) - The Benign hyperkeratotic lesions, as described above were pared, and/or cut utilizing a sterile 15 blade, tissue nippers, and/or dremel, Q8 Progress Notes * Aida TURPINOB:1954 (68 yo F)Acc No.[id number]:02/03/2024 Progress Note Patient:?Aida Turpin Provider:?Diana Merritt DPM :1955???Age:68 Y???Sex:Female D ate:02/03/2024 Address: [address], [facility] Pcp:Rose Mary Motley Subjective: * Chief Complaints: [...] Sulfate Calcium + Vitamin D3 Saline Nasal [place] Citrucel Vitamin C 500 MG Capsule as [...] Calcium + Vitamin D3 Taking Saline Nasal [place] Taking Citrucel Taking Vitamin C 500 MG [...] Chronic problem, Worse (4),Rx Management (4)?4.?Atherosclerosis of [place] artery of both lower extremities, with unspecified [...] as necessary. Patient chooses, no pharmaceutical tx (09761).?Keratoma Treatment:?Parring or Cutting of Benign Hyperkeratotic Lesion(s)?61801 ( More than 4 Lesions ) - [...] Pt defers any other forms of tx (19639).? * Procedure Codes:?72403 DEBRI DE NAIL, 6 OR MORE, Modifiers: XS 13666 Wart Destruction, 1-14, Modifiers: XS 27656 TRIM SKIN LESIONS, OVER 4, Modifiers: XS , Q8 * Follow Up:?2 Months * Images: * Sign off status: Completed true * Provider:?Diana Merritt DPM Date:? Generated for Shey whitlock/Magalie/Shane on:?06/27/2024 08:24 AM EST History and Physical Notes * [...]
--- OUTSIDE RECORDS SUMMARY | 2024-06-27 08:25 | XMS_ITS ---
[facility] Address [address] [place] [address] Care Team Providers Care Planishing Press Operator Name Role Phone John SCHRADER, Jina Sawyer Primary Care Provider Un available Diana Merritt Unavailable [phone] Allergies Allergen (clinical drug ingredient) Drug/Non Drug [...] directed Orally Active Citrucel Active Saline Nasal [place] A ctive Calcium + Vitamin D3 Active [...] No Vital Signs Height 4ft 11in in 04/13/2024 Weight 126 lbs 04/13/2024 BMI 25.45 kg/m2 04/13/2024 Blood pressure systolic 100 mm Hg 04/13/20 24 Blood pressure diastolic 60 mm Hg 024 Encounters Encounter Location Date Provider Diagnosis [facility] [address] [place] [address] 04/13/2024 Diana Merritt Plantar wart B07.0 ; Tinea unguium B35.1 ; Atherosclerosis of [place] artery of both lower extremities, with unspecified presence of clinical manifestation I70.203 ; Pain in right toe(s) M79.674 ; Pain in left toe(s) M79.675 and Right foot pain M79.671 Assessments Encounter Date Diagnosis (ICD Code) Assessment Notes Treatment Notes Treatment Clinical Notes Section Notes 04/13/2024 Plantar wart (ICD-10 - B07.0) 04/13/2024 Tinea unguium (ICD-10 - B35.1) 04/13/2024 Atherosclerosis of [place] artery of both lower extremities, with unspecified presence of clinical manifestation (ICD-10 - I70.203) 04/13/2024 Pain in right toe(s) (ICD-10 - M79.674) 04/13/2024 Pain in left toe(s) (ICD-10 - M79.675) 04/13/2024 Right foot pain (ICD-10 - M79.671) Plan Of Treatment Next Appt Details Follow Up: 2 Months, Reason: Provider Name:Diana mckeon, 06/29/2024 09:15:00 AM, [address] [place], [address], Procedure Notes * Category Sub-Category Detail Notes Wart Treatment Procedure Verrucae were de brided to pin-point bleeding margins with sterile 15 surgical blade, silver nitrate chemocautery applied, recomm. immune-boosting meds such as zinc, recomm. follow up with topical chemosurgical agents, Pt defers any other forms of tx (41177) Debride Nail 6-10 Nail debridement Due to [...] use of a nail nipper and/or dremel-type cutter grinder operator, to a more viable healthy nail plate [...] to maintain effectiveness in symptomatic relief - 56064 Keratoma Treatment Parring or Cutting o f [...] tissue nippers, and/or power dremel instrumentation - 05874 Progress Notes * Aida TURPINOB:1954 (69 yo F)Acc No.[id number]:04/13/2024 Progress Note Patient:?Aida TURPIN Provider:?Diana Merritt DPM :1955???Age:69 Y???Sex:Female D ate:04/13/2024 Address:[address] [place], [place] Pcp:Rose Mary Motley Subjective: * Chief Complaints: [...] Sulfate Calcium + Vitamin D3 Saline Nasal [place] Citrucel Vitamin C 500 MG Capsule as [...] Calcium + Vitamin D3 Taking Saline Nasal [place] Taking Citrucel Taking Vitamin C 500 MG [...] B07.0???2. ?Tinea unguium - B35.1 (Primary)???3.?Atherosclerosis of [place] artery of both lower extremities, with unspecified [...] use of a nail nipper and/or dremel-type cutter grinder operator, to a more viable healthy nail plate [...] to maintain effectiveness in symptomatic relief - 65859.?Keratoma Treatment:?Parring or Cutting of Benign Hyperkeratotic Lesion(s)?(-57) [...] tissue nippers, and/or power dremel instrumentation - 24124.?Wart Treatment:?Procedure?Verrucae were debrided to pin-point bleeding margins with sterile 15 surgical blade, silver nitrate chemocautery applied, recomm. immune-boosting meds such as zinc, recomm. follow up with topical chemosurgical agents, Pt defers any other forms of tx (16282).? * Procedure Codes:?37472 DEBRI DE NAIL, 6 OR MORE, Modifiers: XS 65044 Wart Destruction, 1-14, Modifiers: XS 41755 TRIM SKIN LESIONS, OVER 4, Modifiers: XS , Q8 * Follow Up:?2 Months * Images: * Sign off status: Completed true * Provider:?Diana Merritt DPRose Mary Date:?10/2023 Generated for Shey whitlock/Magalie/eTransmitting on:?06/27/2024 08:24 AM EST History and Physical [...]
--- OUTSIDE RECORDS SUMMARY | 2024-06-27 08:25 | XMS_ITS | Patient Health Record ---
[facility] Address [address] [facility] [place] [address] Care Team Providers Care Photographer Apprentice Lithographic Name Role Phone John SCHRADER, Jina Sawyer Primary Care Provider Un available Shaina Diana Unavailable [phone] Yousif Amado Unavailable [phone] Allergies Allergen (clinical drug ingredient) Drug/Non Drug [...] directed Orally Active Citrucel Active Saline Nasal [place] A ctive Calcium + Vitamin D3 Active [...] Problem Acquired hammer toe of right foot (75735863570 52230) Other hammer toe(s) (acquired), right foot (M20.41) Active confirmed Problem Acquired hammer toe of left foot (93229059376 57038) Other hammer toe(s) (acquired), left foot (M20.42) Active confirmed Problem Plantar wart (55878602) Plantar wart (B07.0) Active confirmed Problem Atherosclerosis of [place] artery of both lower extremities, with unspecified presence of clinical manifestation (I70.203) Active confirmed Vital Signs Blood pressure diastolic 60 mm Hg 04/13/2024 Height 4ft 11in in 04/13/2024 Blood pressure systolic 100 mm Hg 04/13/2024 Weight 126 lbs 04/13/2024 BMI 25.45 kg/m2 04/13/2024 Encounters Encounter Location Date Provider Diagnosis [address] [address] 08/26/2023 Diana Perica Plantar wart B07.0 ; Other hammer toe(s) (acquired), right foot M20.41 ; Atherosclerosis of [place] artery of both lower extremities, with unspecified presence of clinical manifestation I70.203 ; Tinea unguium B35.1 ; Pain in right toe(s) M79.674 ; Pain in left toe(s) M79.675 ; Right foot pain M79.671 and Other hammer toe(s) (acquired), left foot M20.[address] [address] 11/22/2023 Diana Perica Plantar wart B07.0 ; Other hammer toe(s) (acquired), right foot M20.41 ; Atherosclerosis of [place] artery of both lower extremities, with unspecified presence of clinical manifestation I70.203 ; Tinea unguium B35.1 ; Pain in right toe(s) M79.674 ; Pain in left toe(s) M79.675 ; Right foot pain M79.671 and Other hammer toe(s) (acquired), left foot M20.[address] [address] 02/03/2024 Diana Perica Plantar wart B07.0 ; Tinea unguium B35.1 ; Other hammer toe(s) (acquired), right foot M20.41 ; Atherosclerosis of [place] artery of both lower extremities, with unspecified presence of clinical manifestation I70.203 ; Pain in right toe(s) M79.674 ; Pain in left toe(s) M79.675 ; Right foot pain M79.671 and Other hammer toe(s) (acquired), left foot M20.[address] [address] 04/13/2024 Diana Perica Plantar wart B07.0 ; Tinea unguium B35.1 ; Atherosclerosis of [place] artery of both lower extremities, with unspecified presence of clinical manifestation I70.203 ; Pain in right toe(s) M79.674 ; Pain in left toe(s) M79.675 and Right foot pain M79.[address] [address] 11/22/2023 Diana Merritt [address] [address] 02/23/2024 Diana Merritt Assessments Encounter Date Diagnosis [...] unguium (ICD-10 - B35.1) 08/26/2023 Atherosclerosis of [place] artery of both lower extremities, with unspecified presence of clinical manifestation (ICD-10 - I70.203) 04/13/2024 Atherosclerosis of [place] artery of both lower extremities, with unspecified presence of clinical manifestation (ICD-10 - I70.203) 11/22/2023 Atherosclerosis of [place] artery of both lower extremities, with unspecified presence of clinical manifestation (ICD-10 - I70.203) 02/03/2024 Other hammer toe(s) (acquired), right foot (ICD-10 - M20.41) 11/22/2023 Tinea unguium (ICD-10 - B35.1) 08/26/2023 Tinea unguium (ICD-10 - B35.1) 02/03/2024 Atherosclerosis of [place] artery of both lower extremities, with unspecified [...] Details Provider Name:Diana mckeon, 06/29/2024 09:15:00 AM, [address] [place] [address], [address], Insurance Providers Payer Name Payer Address Payer Phone Subscriber Number Group Number Insured Name Patient Relationship to Insured Coverage Start Date Coverage End Date [facility] [address] [place] [address] [phone] [id number] Aida Turpin Self - patient is the insured Medical (General) History Medical History History ICD Code Arthritis Asthma Cataracts High Blood Pressure Osteoporosis Measels Surgical History Surgery Date(Month/Year) Cataracts 02/28/2016 cataract surgery 01/2024
== END 2024-06-27 09:09 | disposition home or self-care (01) ==
PROVIDERS: PCP Internal Medicine; Visit Provider Internal Medicine
DX: E78.5 Hyperlipidemia, unspecified (principal); E03.9 Hypothyroidism, unspecified; Z86.79 Personal history of other diseases of the circulatory system

== ENCOUNTER → 2024-06-27 08:22 | Outpatient (BNVA) | payer MEDICARE, SELFPAY | PROVIDERS: PCP Internal Medicine; Visit Provider Internal Medicine | DX: E78.5 Hyperlipidemia, unspecified (principal); E03.9 Hypothyroidism, unspecified; Z86.79 Personal history of other diseases of the circulatory system | CPT/HCPCS: 99212 ==

== ENCOUNTER 2024-09-13 09:06 | Outpatient (REF) | payer MEDICARE, SELFPAY ==
[2024-09-13 10:52] LABS: Anion Gap 10 (12-20); Blood Urea Nitrogen 16 mg/dL (9-16); Calcium 9.1 mg/dL (8.4-10.2); Carbon Dioxide 27 mmol/L (22-29); Chloride 106 mmol/L (96-108); Estimated Glomerular Filt Rate > 60; Glucose Random 76 mg/dL (60-115); Potassium 4.1 mmol/L (3.3-5.1); Sodium 139 mmol/L (135-145)
[2024-09-19 14:09] LABS: Vitamin D 25-OH, D2 <4 ng/mL; Vitamin D 25-OH, D3 48 ng/mL; Vitamin D 25-OH, Total 48 ng/mL (30-100)
== END 2024-09-13 09:07 | disposition home or self-care (01) ==
LOC: HO.HMGCLDS 09:06
PROVIDERS: Visit Provider Student in an Organized Health Care Education/Training Program
DX: M81.0 Age-related osteoporosis without current pathological fracture (principal)
CPT/HCPCS: 36415; 80048; 82306

== ENCOUNTER 2024-09-19 09:05 | Outpatient (AMB) | payer MEDICARE, SELFPAY ==
--- NOTE | 2024-09-19 09:12 | A.OFFVIS_ITS ---
Vital Signs 09/19/24 09:21 Height 4 ft 11 in Weight 130 lb 4.691 oz BMI 26.3 BP 120/72 Blood Pressure Location Lt brachial Position Sitting Respiration 16 Pulse 58 Pulse Source Pulse Oximeter Pulse Oximetry (%) 99 Oxygen Delivery Method Room Air Intake Visit Reasons: OSTEOPOROSIS/PROLIA Intake Note: Patient presents for Osteoporosis and Prolia injection follow up. Allergies Chocolate Allergy (Unknown, Verified 09/19/24 09:19) Hives Penicillins [PENICILLINS] Allergy (Unknown, Verified 09/19/24 09:19) RASH rsv vaccine Allergy (Intermediate, Uncoded 06/27/24 08:51) Diffuse rash Medication List - Last Reconciled 09/19/24 by Sindi Valles MD ascorbate calcium (vitamin C) 500 mg PO DAILY calcium carbonate 600 mg PO DAILY cholecalciferol (vitamin D3) 25 mcg PO DAILY denosumab (Prolia) 60 mg subcut [id number] fluticasone propionate 50 mcg/actuation (Flonase Allergy Relief) 1 spray intranasal DAILY folic acid 0.4 mg PO DAILY glucosamine HCl 1,000 mg (2 x 500 mg) PO DAILY levothyroxine 75 mcg PO .Every other morning levothyroxine 50 mcg PO .Every other morning loratadine 10 mg PO DAILY methylcellulose (laxative) (Citrucel) 500 mg PO DAILY midodrine 5 mg PO TID 90 days simvastatin 10 mg PO DAILY 3 months sodium chloride 0.65% (Saline Mist) 1 spray intranasal BID PRN HPI Comments Details: Patient is a 69 y.o. female hypothyroidism, HLD, IBS, seasonal allegies, hearling loss and osteoporosis here today for follow up Interval History: Patient last seen 03/19/[address] Olsen. At that time she was following up for her osteoporosis. She is doing quite well on Prolia injections with no recent falls or fractures Today, Here for her prolia injection Exercises: stationary bike, treadmill, 3lb weights No fractures or falls since the last visit Rheumatologic History: Initial history: 68-year-old female with osteoporosis is referred by her PCP for worsening osteoporosis. Patient had been on alendronate since 2019. Recent DEXA scan showed significantly worsening bone density. Patient states that does not recall any history of fractures. She stated that she was having falls recently, she was told that it was due to low blood pressure and she was started on midodrine with some improvement. She has not had any recent falls. Patient reached menopause at age 40-50. She does not have oophorectomy. She exercises for 50 minutes daily. She states that recently she has been having episodes of numbness on her left lower extremity as well as left lower extremity discomfort. Current Rheumatology Medication(s): Prolia 60mg SC every 6 months Vitamin D and calcium supplementation [facility] Medical History (Updated 06/27/24 @ 09:17 by Jina Lopez MD) History of orthostatic hypotension Encounter for monitoring alendronate therapy Osteoporosis of femur without pathological fracture Preoperative examination Osteopenia of left femoral neck Recurrent syncope Hx of syncope Palpable thyroid Postmenopause Irritable bowel syndrome Osteoporosis Hearing loss, bilateral Seasonal allergic rhinitis Impaired fasting glucose Dyslipidemia Acquired hypothyroidism Surgical History Hx of arthroscopy History of carpal tunnel surgery of right wrist Hx of dilation and curettage Hx of nasal septoplasty Hx of cholecystectomy History of colonoscopy Family History Mother Breast cancer CAD (coronary artery disease) CVD (cardiovascular disease) Father Medical history non-contributory Brother No problems noted. Social History Household Members Other:: father Housing: House Are you a primary customer care team coach to a significant other at home: No Do you presently have visiting nurse or other home services: No Alcohol intake: never Patient Tobacco Use Status: Never used Tobacco e-Cigarette/Vaping Use: Never Used Advance Directives Date on File: 03/11/22 Current occupational status: retired Cognitive needs: No Hearing needs: Yes Vision needs: Yes Review of Systems Const Details: Review of Systems Constitutional: Denies fever, chills, weight loss ENT: Denies vision changes, eye pain or eye redness, dental caries, dry mouth GI: Denies nausea, vomiting, diarrhea, abdominal pain, change in BM Pulm: Denies SOB, WILKERSON, hemoptysis, wheezing Cards: Denies chest pain, palpitations Skin: Denies Raynaud's, rash, nail changes, photosensitivity, METAL ROASTER: Denies headaches, weakness, paresthesias, recurrent falls MSK: as per HPI All other systems reviewed and are unremarkable except noted above Physical Exam Vital Signs: Last Vital Signs Pulse 58 09/19/24 09:21 Resp 16 09/19/24 09:21 BP 120/72 09/19/24 09:21 Pulse Ox 99 09/19/24 09:21 Oxygen Delivery Method Room Air 09/19/24 09:21 BMI result Body Mass Index 26.3 Vital signs reviewed Physical Examination CONSTITUITIONAL Patient alert and cooperative. Well appearing and in no apparent painful distress HEENT Conjunctiva and sclera clear. ?Pupils equal round and reactive to light. ?No lymphadenopathy. ? CHEST/RESPIRATORY SYSTEM Normal respiratory effort and able to speak in complete sentences. ?Clear to auscultation bilaterally. ?No crackles, rales, rhonchi, wheezes heard. CARDIAC SYSTEM Regular rate and rhythm. ?S1 and S2 heard no murmurs. ?Radial pulses intact bilaterally MSK Hands: ?Able to make a fist. No synovitis noted to the MCPs, PIPs or DIPs. ?No tenderness to palpation of these joints. Herbeden's nodes Wrists: ?Full range of motion at the wrists without pain. ?No tenderness to palpation or synovitis noted to the wrists. Elbows: Full range of motion without pain. No tenderness, weakness, swelling, increased warmth or erythema. Shoulders: Full range of active range of motion without pain. No tenderness, weakness, swelling, increased warmth or erythema. Knees: ?Full range of motion. ?No tenderness, swelling, increased warmth or erythema.?No effusion or crepitations Ankles: Full range of motion. ?No tenderness, swelling, increased warmth or erythema.? Feet: ?Negative squeeze test. ?No tenderness to palpation or swelling of the MTPs. Tender points:?No tenderness to palpation of the bilateral trapezius, supraspinatus, greater trochanters, anterior costochondral junctions, bilateral gluteal areas, bilateral suboccipital muscle insertions SKIN Skin intact without rashes. Office Meds Prolia 60 mg/mL subcutaneous syringe Performing Provider: Sindi Valles MD Performing Location: [facility] [place] Endocrinology Administered by: Vonda Damon RN on 09/19/24 09:31 Dose Route Admin Location Dispensed Lot Number Expiration Date NDC Reporter 60 mg subcut 1 mL [id number] 12/06/26 [facility] Comments: Patient tolerated injection well. Denies any previous reactions to injections. Results Reviewed Results Reviewed: Laboratory Tests 03/10/24 09/13/24 08:58 09:10 Sodium 139 Potassium 4.1 Chloride 106 Carbon Dioxide 27 BUN 16 Creatinine 0.65 Calcium 9.1 25-OH Vitamin D Total 56 Pending DEXA 05/2023 FINDINGS: LEFT FEMUR, NECK: Current: BMD 0.618 g/cm2, Z-score -1.2, T-score -3.0, osteoporosis. Prior: BMD 0.810 g/cm2. Baseline: BMD 0.971 g/cm2. LEFT FEMUR, TOTAL: Current: BMD 0.653 g/cm2, Z-score -1.2, T-score -2.8, osteoporosis, 24.1% decrease from previous, 35.9% decrease from baseline (<5% change is not significant). Prior: BMD 0.860 g/cm2. Baseline: BMD 1.019 g/cm2. AP SPINE L1-L4: Current: BMD 1.059 g/cm2, Z-score 0.9, T-score -1.0, normal, 0.2% decrease from previous, 15.2% decrease from baseline (<5% change is not significant). Prior: BMD 1.061 g/cm2. Baseline: BMD 1.249 g/cm2. Assessment & Plan Assessment & Plan (1) Osteoporosis of femur without pathological fracture: Comment: DEXA 04/2021 L-spine T-score -1.0 Left femur neck T-score-1.6 Left femur total-1.2 DEXA 05/2023 L-spine T-score-1.0 Left femur neck-3.2 Left femur total -2.8 Alendronate 04/2019 -06/2023 Prolia 09/2023 Code(s): M81.0 - Age-related osteoporosis without current pathological fracture Category: Medical Plan: #Osteoporosis Patient is a 69-year-old female with osteoporosis here today for follow up. Patient is doing well. Vitamin-D at goal. Currently on calcium supplementation as well. Tolerated Prolia injections. We will repeat bone density in May 2025 Plan - Prolia 60mg SC every 6 months - DEXA 05/2025 - RTC 6 months - Labs before visit: CMP, vitamin-D (2) Encounter for monitoring denosumab therapy: Code(s): Z51.81 - Encounter for therapeutic drug level monitoring; Z79.620 - superintendent terminal (current) use of immunosuppressive biologic Plan: #Long-term use of Denosumab Discussed with patient the risks and benefits of denosumab (Prolia) for the management of their osteoporosis Benefits include improved bone density, decreased fracture risk Risks include rapid bone loss if denosumab stopped, osteonecrosis of the jaw especially in patients with poor oral hygiene/diabetes/use of glucocorticoids/age greater than 65 years, atypical femoral fractures, injection site reactions. Mild increased risk of infections due to RANKL on T helper cells, increased risk of hypocalcemia especially in CKD patients Keep vitamin-D at least 35 ng/mL Advised to delay non emergent dental procedures to toward the end of the 6 month cycle and if they plan to stop denosumab would need to continue antiresorptive to maintain the effects of denosumabe Plan I spent 25 minutes reviewing the record and labs, taking a history, examining th e patient, discussing the treatment plan, ordering diagnostic work up and documenting in the medical record Orders: Orders Comprehensive Met. Panel 6 Months E55.9 - Vitamin D deficiency, unspecified, M81.0 - Age-related osteoporosis without current pathological fracture AMB Denosumab Injection Practice Supplied Today M81.0 - Age-related osteoporosis without current pathological fracture Vitamin D 25-OH (D2 and D3) 6 Months E55.9 - Vitamin D deficiency, unspecified, M81.0 - Age-related osteoporosis without current pathological fracture Coding Level of Care Code Est Pt Level 3 (08390) Complex EM visit Add On G2211 Diagnoses Osteoporosis of femur without pathological fracture M81.0 Encounter for monitoring denosumab therapy Z51.81; Z79.620
[2024-09-19 09:21] VITALS: BP 120/72; PULSE 58; RESP 16; O2SAT 99; BMI 26.3
--- NOTE | 2024-09-19 09:31 | AM.OFFVISNUR ---
Vital Signs 09/19/24 09:21 Height 4 ft 11 in Weight 130 lb 4.691 oz BMI 26.3 BP 120/72 Blood Pressure Location Lt brachial Position Sitting Respiration 16 Pulse 58 Pulse Source Pulse Oximeter Pulse Oximetry (%) 99 Oxygen Delivery Method Room Air Intake Visit Reasons: OSTEOPOROSIS/PROLIA Allergies Chocolate Allergy (Unknown, Verified 09/19/24 09:19) Hives Penicillins [PENICILLINS] Allergy (Unknown, Verified 09/19/24 09:19) RASH rsv vaccine Allergy (Intermediate, Uncoded 06/27/24 08:51) Diffuse rash Office Meds Prolia 60 mg/mL subcutaneous syringe Performing Provider: Sindi Valles MD Performing Location: [facility] Administered by: Vonda Damon RN on 09/19/24 09:31 Dose Route Admin Location Dispensed Lot Number Expiration Date ND Apple Sorter 60 mg subcut 1 mL [id number] 12/06/26 25810-663-86 [employer] Comments: Patient tolerated injection well. Denies any previous reactions to injections. Assessment & Plan Assessment & Plan (1) Osteoporosis of femur without pathological fracture: Comment: DEXA 04/2021 L-spine T-score -1.0 Left femur neck T-score-1.6 Left femur total-1.2 DEXA 05/2023 L-spine T-score-1.0 Left femur neck-3.2 Left femur total -2.8 Alendronate 04/2019 -06/2023 Prolia 09/2023 Code(s): M81.0 - Age-related osteoporosis without current pathological fracture Category: Medical Orders: Orders AMB Denosumab Injection Practice Supplied Today M81.0 - Age-related osteoporosis without current pathological fracture Medications: New Prolia (denosumab) 60 mg subcut ONCE 1 mL 0RF NS M81.0 - Age-related osteoporosis without current pathological fracture Coding Diagnoses Osteoporosis of femur without pathological fracture M81.0
--- OUTSIDE RECORDS SUMMARY | 2024-09-19 09:31 | XMS_ITS ---
[facility] Address [address] [place] [address] Care Team Providers Care Chip Silo Tender Name Role Phone John SCHRADER, Jina Sawyer Primary Care Provider Un available Diana Merritt Unavailable [phone] Allergies Allergen (clinical drug ingredient) Drug/Non Drug [...] directed Orally Active Citrucel Active Saline Nasal [place] A ctive Calcium + Vitamin D3 Active Glucosamine Sulfate Active Alendronate Sodium 70 MG/75ML 75 mL 30 minutes before the first food, beverage or medicine of the day with plain water Orally for 30 day(s) Not-Taking Loratadine 10 MG 1 tablet Orally Once a day for 30 day(s) Active Flonase Active Midodrine HCl 5 MG 1 tablet Orally three times a day for 30 days Active Prolia every 6 months Activ e Prolia 60 MG/ML as directed Subcutaneous Not-Taking Encounters Encounter Location Date Provider Diagnosis [facility] [address] [address] 06/29/2024 Diana Merritt Plan Of Treatment Next Appt Details Provider Name:Diana Mckeon Ronnie mckeon, 09/28/2024 09:00:00 AM, [address] [place], [address], Progress Notes * DYANA Aida BarnettOB:1954 (69 yo F)Acc No.[id number]:06/29/2024 Progress Note Patient:?Aida TURPIN Provider:?Diana Merritt DPM :1955???Age:69 Y???Sex:Female D ate:06/29/2024 Address:[address] [place], [place] [id number] Pcp:Rose Mary Motley Subjective: * Chief Complaints: * ???1. Dr Devine. * Medical History:?Arthritis, Asthma, Cataracts , High Blood Pressure, Osteoporosis, Measels. * Medications:?Taking Prolia , Notes to Pharmacist: every 6 months, Taking Midodrine HCl 5 MG Tablet 1 tablet Orally three times a day , Taking Flonase , Taking Loratadine 10 MG Tablet 1 tablet Orally Once a day , Taking Glucosamine Sulfate , Taking Calcium + Vitamin D3 , Taking Saline Nasal [place] , Taking Citrucel , Taking Vitamin C [...] the day with plain water Orally * Allergies:?Penicillin, Gamaliel late Flavor: Allergy. Objective: * Vitals:? Assessment: Plan: * Treatment: * Images: * The named appointment provid er may or may not be the originator of this progress note, and it is not deemed complete until electronically signed by the appointment provider. Sign off status: Pending * Provider:?Diana Merritt DPM Date:? Generated for Shey whitlock/Magalie/Shane on:?09/19/2024 09:30 AM EDT
--- OUTSIDE RECORDS SUMMARY | 2024-09-19 09:31 | XMS_ITS ---
[facility] Address [address] [place] [address] Care Team Providers Care Cosmetics Machine Operator Name Role Phone John SCHRADER, Jina Sawyer Primary Care Provider Un available Diana Merritt Unavailable [phone] Allergies Allergen (clinical drug ingredient) Drug/Non Drug Allergy documented on EMR Reaction Allergy Type Onset Date Status Chocolate Flavor Unknown Drug Allergy Active Penicillin Unknown Drug Allergy Active REASON FOR VISIT At Risk Footcare, Painful Nail(s) aggrevated by shoes and causing difficulty standing/walking., Wart(s) Medications Medication SIG (Take, Route, Frequency, Duration) Notes Start Date End Date Status Levothyroxine Sodium 50 MCG 1 tablet in the morning on an empty stomach Orally Once a day for 30 day(s) Alternate Days Active Levothyroxine Sodium 75 MCG 1 tablet in the morning on an empty stomach Orally Once a day for 30 day(s) Alternate days Active Prolia 60 MG/ML as directed Subcutaneous Not-Taking Folic Acid 800 MCG 1 tablet Orally Once a day for 30 day(s) Active Alendronate Sodium 70 MG/75ML 75 mL 30 minutes before the first food, beverage or medicine of the day with plain water Orally for 30 day(s) Not-Taking Vitamin D3 25 MCG (1000 UT) as directed Active Simvastatin 10 MG 1 tablet in the evening Orally Once a day for 30 days Active Saline Nasal [place] A ctive Vitamin C 500 MG as directed Orally Active Citrucel Active Calcium + Vitamin D3 Active Flonase Active Midodrine HCl 5 MG 1 tablet Orally three times a day for 30 days Active Glucosamine Sulfate Active Loratadine 10 MG 1 tablet Orally Once a day for 30 day(s) Active Prolia every 6 months Activ e Social History Tobacco Use: Social History Observation Description Date Details (start date - stop date) Never Smoker NA - NA Tobacco Use/Smoking Question Answer Notes Are you a: nonsmoker Additional Findings: Tobacco Non-User Current no n-smoker Tobacco use other than smoking: Question Answer Notes Are you an other tobacco user? 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, with unspecified presence of clinical manifestation I70.203 ; Pain in right toe(s) M79.674 ; Pain in left toe(s) M79.675 and Right foot pain M79.671 Assessments Encounter Date Diagnosis (ICD Code) Assessment Notes Treatment Notes Treatment Clinical Notes Section Notes 07/04/2024 Plantar wart (ICD-10 - B07.0) 07/04/2024 Tinea unguium (ICD-10 - B35.1) 07/04/2024 Atherosclerosis of choctaw artery of both lower extremities, with unspecified presence of clinical manifestation (ICD-10 - I70.203) 07/04/2024 Pain in right toe(s) (ICD-10 - M79.674) 07/04/2024 Pain in left toe(s) (ICD-10 - M79.675) 07/04/2024 Right foot pain (ICD-10 - M79.671) Plan Of Treatment Next Appt Details Follow Up: 2 Months, Reason: Provider Name:Diana mckeon, 09/28/2024 09:00:00 AM, [address] [place] [address], [id number], Procedure Notes * Category Sub-Category Detail Notes Wart Treatment Procedure Verrucae were de brided to pin-point bleeding margins with sterile 15 surgical blade, silver nitrate chemocautery applied, recomm. immune-boosting meds such as zinc, recomm. follow up with topical chemosurgical agents, Pt defers any other forms of tx (72024) Debride Nail 6-10 Nail debridement , Due to the clinical pathology outlined in the exam findings, performance of this nail treatment is medically necessary as its management by an unskilled/untrained nonprofessional would put this patients foot and overall health at risk. Therefore, debridement to affected nail(s), as described in exam ( TA, T1, T2, T3, T4, T5, T6, T7, T8, T9, ), was performed exclusively by the physician of record to reduce/remove overall nail length, girth, thickness, subungual debris, and necrotic tissue, by manual and/or electrical means through the use of a nail nipper and/or dremel-type sample grinder, to a more viable healthy nail plate [...] to maintain effectiveness in symptomatic relief - 72728 Keratoma Treatment Parring or Cutting o f [...] risk. Therefore, the benign hyperkeratotic lesions, ( 7 ) in total, locations as stated and described in the exam ( TA T2 T3 T5 T9 Heel(s) B/L), were pared, and/or cut utilizing a sterile 15 blade, tissue nippers, and/or power dremel instrumentation by the physician of record - 23839 Progress Notes * Aida TURPINOB:1954 (69 yo F)Acc No.[id number]:07/04/2024 Progress Note Patient:?Aida TURPIN Provider:?Diana Merritt DPM :1955???Age:69 Y???Sex:Female D ate:07/04/2024 Address:[address] [place], [id number] Pcp:Rose Mary Motley Subjective: * Chief Complaints: * ???At Risk FootcarePainful N ail(s) aggrevated by shoes and causing difficulty standing/walking.Wart(s) * HPI: ???At Risk footcare:?Pt States Last PCP Visit:?Date?06/27/2024 ???Skin problems:?Pt States PCP Visit: ?DATE?06/27/2024 * ROS:?General/Constitutional:?Nausea?denies.?Vomiting?denies.?Hunger Thirst?denies.?Loss appetite?denies.?Chills?denies.?Fatigue?denies.?Fever?denies.?Night Sweats?denies.?Unexplained weight loss?denies.?Unexplained [...] than smoking?Are you an other tobacco user??No ???Miscellaneous:?Caffeine: no, decaf tea. ?Children: no. ?Exercise: yes, walking, 40 50 mins a day. ?Marital status: single. ?Occupation: Retired-office work. * Medications:?TakingProlia , Notes to Pharmacist: every 6 monthsMidodrine HCl 5 MG Tablet 1 tablet Orally three times a day Flonase Loratadine 10 MG Tablet 1 tablet Orally Once a day Glucosamine Sulfate Calcium + Vitamin D3 Saline Nasal [place] Citrucel Vitamin C 500 MG Capsule as [...] Calcium + Vitamin D3 Taking Saline Nasal [place] Taking Citrucel Taking Vitamin C 500 MG [...] te Flavor: Allergyyes[Allergies Verified] Objective: * Vitals:?Ht: 5nw46hx, Wt:126, BMI:25.45, Shoe size: 6, BP:110/60mm Hg, Ht-cm: 149.86 cm, Wt-k.15 kg. * Examination: ???Vascular: ?DP PULSES (B):? 1/4, B/L.?PT PULSES (B):? 0/4, B/L.?CAPILLARY FILL TIME:? delayed, all digits, B/L.?TROPHIC CONDITION-TEXTURE/ELASTICITY/TURGOR/HAIR GROWTH (B):? decreased, B/L.?TEMPERTURE GRADIENT (C):? decreased, cool to cool, proximal to distal, B/L.?PIGMENTATION:?pale, B/L.?CLAUDICATION (C):?denies, B/L.?REST PAIN:?denies, B/L.?Nails: ?NAILS are:? Elongated, overgrown, dystrophic, lytic, greater than 3mm thick, discolored and friable with crumbly malodorous subungual debris, with pain on palpation, TA, T1, T2, T3, T4, T5, T6, T7, T8, T9.?Dermatologic: ?SKIN FINDINGS:? Skin exam reveals Keratotic lesion(s) located at TA T2 T3 T5 T9 Heel(s) B/L.?VERRUCA:?Reveals a Single , multi-loculated , [...] for office visit today.?ORIENTED:?person, place, and time.?FOOT EXAM:?Lower Extremity Neurological Exam performed:?Yes ?Footwear Evaluation?Footwear Evaluation performed:?Yes??? Assessment: * Assessment: 1.?Plantar wart - B07.0???2. 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 Plan: * Treatment: * Procedures:?Debride Nail 6-10:?Nail debridement?, Due to the clinical pathology outlined in the exam findings, performance of this nail treatment is medically necessary as its management by an unskilled/untrained nonprofessional would put this patients foot and overall health at risk. Therefore, debridement to affected nail(s), as described in exam ( TA, T1, T2, T3, T4, T5, T6, T7, T8, T9, ), was performed exclusively by the physician of record to reduce/remove overall nail length, girth, thickness, subungual debris, and necrotic tissue, by manual and/or electrical means through the use of a nail nipper and/or dremel-type sample grinder, to a more viable healthy nail plate or bed tissue 6- 10 nails in total. Silver nitrate was used for any petechial bleeding as necessary. Definitive antifungal treatment options, both pharmaceutical and surgical, have been reviewed and discussed with the patient. The patient solely prefers the use of intermittent/as needed professional debridement services for their nail condition and understands the need for additional periodic treatments to maintain effectiveness in symptomatic relief - 26586.?Keratoma Treatment:?Parring or Cutting of Benign Hyperkeratotic Lesion(s)?(-57) More than 4 Lesions - Due to the at risk nature of the patients medical condition as documented in the exam findings, performance of this keratoderma treatment is medically necessary as its management by an unskilled/untrained nonprofessional would put this patients foot and overall health at risk. Therefore, the benign hyperkeratotic lesions, ( 7 ) in total, locations as stated and described in the exam (?TA?T2?T3?T5?T9?Heel(s)?B/L), were pared, and/or cut utilizing a sterile 15 blade, tissue nippers, and/or power dremel instrumentation by the physician of record - 01972.?Wart Treatment:?Procedure?Verrucae were debrided to pin-point bleeding margins with sterile 15 surgical blade, silver nitrate chemocautery applied, recomm. immune-boosting meds such as zinc, recomm. follow up with topical chemosurgical agents, Pt defers any other forms of tx (54995).? * Procedure Codes:?13237 DEBRI DE NAIL, 6 OR MORE, Modifiers: XS 75402 Wart Destruction, 1-14, Modifiers: XS 57930 TRIM SKIN LESIONS, OVER 4, Modifiers: XS , Q8 * Follow Up:?2 Months * Images: * Sign off status: Completed true * Provider:?Diana Merritt, DPRose Mary Date:? Generated for Shey whitlock/Magalie/Shane on:?09/19/2024 09:31 AM EDT History and Physical Notes * HPI (History of Present Illness) Category Sub-Category Detail Notes Category Not es Skin problems Pt States PCP Visit: DATE: 06/27/2024 At Risk footcare Pt States Last PCP Visit: Date: Examination Category Sub-Category Detail Notes Category Not es Neurological SENSORY: Neurological exa m reveals intact sensorium, pain sensation normal, vibration sensation intact, pinprick sensation is normal in the lower extremities, Pt denies, anesthesia, burning, paresthesia, tingling, B/L Dermatologic SKIN FINDINGS: Skin exam reveal s Keratotic lesion(s) located at TA T2 T3 T5 T9 Heel(s) B/L VERRUCA: Reveals a Single , [...] crumbly malodorous subungual debris, with pain on palpation, TA, T1, T2, T3, T4, T5, T6, T7, T8, T9
--- OUTSIDE RECORDS SUMMARY | 2024-09-19 09:31 | XMS_ITS ---
Author Organization [facility] Address [address] [place] [address] Care Team Providers Care Machinist Wood Name Role Phone John SCHRADER, Jina Sawyer Primary Care Provider Un available Diana Merritt Unavailable [phone] REASON FOR VISIT for sooner apt Encounters Encounter Location Date Provider Diagnosis [address] [address] 08/07/2024 Diana Merritt Plan Of Treatment Next Appt Details Provider Name:Diana mckeon, 09/28/2024 09:00:00 AM, [address] [place] [address], [phone], Progress Notes * Aida TURPINOB:1954 (69 yo F)Acc No.[id number]:08/07/2024 Progress Note Patient:?Aida TURPIN Provider:?Diana Merritt DPM :1955???Age:69 Y???Sex:Female D ate:08/07/2024 Address: [id number] Pcp:Rose Mary Motley Subjective: * Chief Complaints: * ???1. For sooner apt. * Medical History:? Objective: * Vitals:? Assessment: Plan: * Treatment: * Images: * The named appointment provid er may or may not be the originator of this progress note, and it is not deemed complete until electronically signed by the appointment provider. Sign off status: Pending * Provider:Hina Merritt DPM Date:?05/2024 Generated for Shey whitlock/Magalie/Shane on:?09/19/2024 09:31 AM EDT
--- OUTSIDE RECORDS SUMMARY | 2024-09-19 09:31 | XMS_ITS | Patient Health Record ---
Author Organization [facility] Address [address] [facility] [place] [address] Care Team Providers Care Crystalizer Operator Name Role Phone John SCHRADER, Jina Sawyer Primary Care Provider Un available Shaina Diana Unavailable [phone] Allergies Allergen (clinical drug ingredient) Drug/Non Drug Allergy documented on EMR Reaction Allergy Type Onset Date Status Chocolate Flavor Unknown Drug Allergy Active Penicillin Unknown Drug Allergy Active Reason For Referral No Information Medications Medication SIG (Take, Route, Frequency, Duration) Notes Start Date End Date Status Flonase Active Midodrine HCl 5 MG 1 [...] Once a day for 30 days Active Levothyroxine Sodium 50 MCG 1 tablet in the morning on an empty stomach Orally Once a day for 30 day(s) Alternate Days Active Levothyroxine Sodium 75 MCG 1 tablet in the morning on an empty stomach Orally Once a day for 30 day(s) Alternate days Active Saline Nasal [place] A ctive Calcium + Vitamin D3 Active Vitamin C 500 MG as directed Orally Active Citrucel Active Prolia 60 MG/ML as directed Subcutaneous Not-Taking Folic Acid 800 MCG 1 tablet Orally Once a day for 30 day(s) Active Alendronate Sodium 70 MG/75ML 75 mL 30 minutes before the first food, beverage or medicine of the day with plain water Orally for 30 day(s) Not-Taking Social History Tobacco Use: Social History [...] Problem Acquired hammer toe of right foot (63126808322 [id number]) Other hammer toe(s) (acquired), right foot (M20.41) Active confirmed Problem Acquired hammer toe of left foot ([id number]) Other hammer toe(s) (acquired), left foot (M20.42) Active confirmed Problem Plantar wart (15792957) Plantar wart (B07.0) Active confirmed Problem Atherosclerosis of [place] artery of both lower extremities, with unspecified presence of clinical manifestation (I70.203) Active confirmed Vital Signs Blood pressure diastolic 60 mm Hg 07/04/2024 Height [id number] in 07/04/2024 Blood pressure systolic 110 mm Hg 07/04/2024 Weight 126 lbs 07/04/2024 BMI 25.45 kg/m2 07/04/2024 Encounters Encounter Location Date Provider Diagnosis [address] [address] 11/22/2023 Diana Perica Plantar wart B07.0 ; Other hammer toe(s) (acquired), right foot M20.41 ; Atherosclerosis of [place] artery of both lower extremities, with unspecified presence of clinical manifestation I70.203 ; Tinea unguium B35.1 ; Pain in right toe(s) M79.674 ; Pain in left toe(s) M79.675 ; Right foot pain M79.671 and Other hammer toe(s) (acquired), left foot M20.[address] [address] 02/03/2024 Diana Perica Plantar wart B07.0 ; Tinea unguium B35.1 ; Other hammer toe(s) (acquired), right foot M20.41 ; Atherosclerosis of [place] artery of both lower extremities, with unspecified presence of clinical manifestation I70.203 ; Pain in right toe(s) M79.674 ; Pain in left toe(s) M79.675 ; Right foot pain M79.671 and Other hammer toe(s) (acquired), left foot M20.[address] [address] 04/13/2024 Diana Perica Plantar wart B07.0 ; Tinea unguium B35.1 ; Atherosclerosis of [place] artery of both lower extremities, with unspecified presence of clinical manifestation I70.203 ; Pain in right toe(s) M79.674 ; Pain in left toe(s) M79.675 and Right foot pain M79.[address] [address] 07/04/2024 Diana Perica Plantar wart B07.0 ; Tinea unguium B35.1 ; Atherosclerosis of [place] artery of both lower extremities, with unspecified presence of clinical manifestation I70.203 ; Pain in right toe(s) M79.674 ; Pain in left toe(s) M79.675 and Right foot pain M79.[address] [address] 11/22/2023 Diana Merritt [address] [address] 02/23/2024 Diana Merritt Assessments Encounter Date Diagnosis (ICD Code) Assessment Notes Treatment Notes Treatment Clinical Notes Section Notes 11/22/2023 Other hammer toe(s) (acquired), right foot (ICD-10 - M20.41) 11/22/2023 Plantar wart (ICD-10 - B07.0) 02/03/2024 Plantar wart (ICD-10 - B07.0) 02/03/2024 Tinea unguium (ICD-10 - B35.1) 04/13/2024 Plantar wart (ICD-10 - B07.0) 07/04/2024 Plantar wart (ICD-10 - B07.0) 07/04/2024 Tinea unguium (ICD-10 - B35.1) 04/13/2024 Atherosclerosis of [place] artery of both lower extremities, with unspecified presence of clinical manifestation (ICD-10 - I70.203) 04/13/2024 Tinea unguium (ICD-10 - B35.1) 11/22/2023 Atherosclerosis of [place] artery of both lower extremities, with unspecified presence of clinical manifestation (ICD-10 - I70.203) 02/03/2024 Other hammer toe(s) (acquired), right foot (ICD-10 - M20.41) 11/22/2023 Tinea unguium (ICD-10 - B35.1) 02/03/2024 Atherosclerosis of [place] artery of both lower extremities, with unspecified presence of clinical manifestation (ICD-10 - I70.203) 04/13/2024 Pain in right toe(s) (ICD-10 - M79.674) 07/04/2024 Atherosclerosis of [place] artery of both lower extremities, with unspecified [...] 04/13/2024 Right foot pain (ICD-10 - M79.671) 07/04/2024 Pain in left toe(s) (ICD-10 - M79.675) 07/04/2024 Right foot pain (ICD-10 - M79.671) 02/03/2024 Right foot pain (ICD-10 - M79.671) 11/22/2023 Right foot pain (ICD-10 - M79.671) 02/03/2024 Other hammer toe(s) (acquired), left foot (ICD-10 - M20.42) 11/22/2023 Other hammer toe(s) (acquired), left foot (ICD-10 - M20.42) Plan Of Treatment Next Appt Details Provider Name:Diana mckeon, 09/28/2024 09:00:00 AM, [address] [place], [address], Insurance Providers Payer Name Payer Address Payer Phone Subscriber Number Group Number Insured Name Patient Relationship to Insured Coverage Start Date Coverage End Date [facility] [address] [place] [address] [id number] Aida Turpin Self - patient is the insured Medical (General) History Medical History History ICD Code Arthritis Asthma Cataracts High Blood Pressure Osteoporosis Measels Surgical History Surgery Date(Month/Year) Cataracts 02/28/2016 cataract surgery 01/2024
== END 2024-09-19 09:40 | disposition home or self-care (01) ==
LOC: HO.RHE 09:06
PROVIDERS: PCP Internal Medicine; Visit Provider Student in an Organized Health Care Education/Training Program
DX: M81.0 Age-related osteoporosis without current pathological fracture (principal); Z51.81 Encounter for therapeutic drug level monitoring; Z79.620 Long term (current) use of immunosuppressive biologic
CPT/HCPCS: 99213; G2211

== ENCOUNTER → 2024-09-19 09:05 | Outpatient (BNVA) | payer MEDICARE, SELFPAY | PROVIDERS: PCP Internal Medicine; Visit Provider Student in an Organized Health Care Education/Training Program | DX: M81.0 Age-related osteoporosis without current pathological fracture (principal); Z51.81 Encounter for therapeutic drug level monitoring; Z79.620 Long term (current) use of immunosuppressive biologic | CPT/HCPCS: 96372; 99212; J0897 ==

== ENCOUNTER 2024-12-19 06:19 | Outpatient (REF) | payer MEDICARE, SELFPAY ==
--- OUTSIDE RECORDS SUMMARY | 2024-12-19 06:21 | XMS_ITS | Patient Health Record ---
Author Organization [facility] Address [address] [place] [address] Care Team Providers Care Chips Screen Tender Name Role Phone John SCHRADER, Jina Primary Care Provider Devon Louise [phone] Allergies Allergen (clinical drug ingredient) Drug/Non Drug Allergy documented on EMR Reaction Allergy Type Onset Date Status Chocolate Natural & Artifical Unknown Drug Allergy Active penicillin G Penicillin G Sodium Unknown Drug Allergy Active Reason For Referral No Information Medications Medication SIG (Take, Route, Frequency, Duration) Notes Start Date End Date Status Folic Acid 400 MCG 1 tablet Orally Once a day for 30 day(s) Active Alendronate Sodium 70 MG Oral for 90 Active Vitamin D 25 MCG (1000 UT) 1 tablet Oral ly Once a day for 30 day(s) Active Loratadine 10 MG 1 tablet Orally Once a day for 30 day(s) Active Glucosamine Sulfate Active Levothyroxine Sodium 75 MCG alternating with 50 mg Oral Active Simvastatin 10 MG TK 1 T PO QOD Oral for 90 Active Flonase Allergy Relief Active Citrucel Active Vitamin C 500 MG as directed Orally Active Calcium 600 MG 1 tablet with meals Orally Twice a day for 30 day(s) Active Saline Nasal [place] 0.65 % Nasally AM and Night Active Immunizations Vaccine Route Administration Date Status Comme nts Influenza Unknown 01/07/2019 Administered Social History Tobacco Use: Social History Observation Description Date Details (start date - stop date) Never Smoker NA - NA Tobacco Use/Smoking Question Answer Notes Patient is a nonsmoker Alcohol Screen Question Answer Notes Did you have a drink containing alcohol in the p ast year? No Points 0 Interpretation Negative Section Notes: Nonsmoker; no alcohol Problems Problem Type SNOMED Code ICD Code Onset Dates Problem Status W/U Status Risk Notes Problem 717598818 Encounter for screening for malignant neoplasm of colon (Z12.11) Active confirmed Problem [id number] Preprocedural examination (Z01.818) Active confirmed Plan Of Treatment Future Test Test Name Order Date COLONOSCOPY 12/06/2019 Insurance Providers Payer Name Payer Address Payer Phone Subscriber Number Group Number Insured Name Patient Relationship to Insured Coverage Start Date Coverage End Date [facility] [address] [facility] [place] [place] [phone] [id number] ALMA ALEXANDER Self - patient is the insured Medical (General) History Medical History History ICD Code Asthma/allergy injections Denies AK,DM,CVA,renal disease Negative colonoscopy in 2006 Hypothyroidism Hyperlipidemia Osteoporosis Surgical History Surgery Date(Month/Year) Cholecystectomy Right wrist carpal tunnel Right wrist surgery
[2024-12-19 11:04] LABS: Alanine Aminotransferase 19 U/L (0-31); Anion Gap 10 (12-20); Aspartate Amino Transferase 28 U/L (5-31); Blood Urea Nitrogen 15 mg/dL (9-16); Calcium 8.6 mg/dL (8.4-10.2); Carbon Dioxide 28 mmol/L (22-29); Chloride 108 mmol/L (96-108); Cholesterol 184 mg/dL (<200); Estimated Glomerular Filt Rate > 60; HDL Cholesterol 73 mg/dL (>40); Potassium 4.1 mmol/L (3.3-5.1); Sodium 142 mmol/L (135-145); Triglycerides 56 mg/dL (<150)
[2024-12-19 11:23] LABS: Free T4 (Free Thyroxine) 1.16 ng/dL (0.71-1.85); Thyroid Stimulating Hormone 0.67 uIU/mL (0.32-4.0)
[2024-12-19 11:27] LABS: Folate 14.2 ng/mL (> or = 4.0); Vitamin B12 476 pg/mL (200-900)
== END 2024-12-19 06:20 | disposition home or self-care (01) ==
LOC: HO.HMGCLDS 06:19
PROVIDERS: PCP Internal Medicine; Visit Provider Internal Medicine
DX: M81.0 Age-related osteoporosis without current pathological fracture (principal); R73.01 Impaired fasting glucose; E78.5 Hyperlipidemia, unspecified; E03.9 Hypothyroidism, unspecified; Z86.79 Personal history of other diseases of the circulatory system
CPT/HCPCS: 36415; 80048; 80061; 82306; 82607; 82746; 84439; 84443; 84450; 84460

== ENCOUNTER 2024-12-26 09:00 | Outpatient (AMB) | payer MEDICARE, SELFPAY ==
--- OUTSIDE RECORDS SUMMARY | 2024-08-07 06:00 | XMS_ITS ---
Author Organization [facility] Address [address] [place] [address] Care Team Providers Care Stone Engraver Name Role Phone John SCHRADER, Jina Sawyer Primary Care Provider Un available Diana Merritt Unavailable [phone] REASON FOR VISIT for sooner apt Encounters Encounter Location Date Provider Diagnosis [address] [address] 08/07/2024 Diana Merritt Plan Of Treatment Next Appt Details Provider Name:Diana mckeon, 01/04/2025 09:00:00 AM, [address] [place] [address], [address], Progress Notes * Aida TURPINOB:1954 (69 yo F)Acc No.[id number]:08/07/2024 Progress Note Patient: Elda BARRAZA Aida Enriquez Provider: Harsha Merritt DPM :1955 A ge:69 Y S ex:Female Date:08/07/2024 Address: [address] [id number] Pcp:Rose Mary Motley Subjective: * Chief Complaints: [...] 0 08/07/2024 Generated for Shey whitlock/Magalie/Shane on: 12/26/2024 09:43 AM EDT
[2024-12-26 09:10] VITALS: BP 122/70; PULSE 58; RESP 16; TEMP 36.8; O2SAT 98; BMI 26.3
--- NOTE | 2024-12-26 09:10 | MHC.PC.OV ---
Vital Signs 12/26/24 09:10 Height 4 ft 11 in Weight 130 lb BMI 26.3 BP 122/70 Blood Pressure Location Lt brachial Position Sitting Respiration 16 Pulse 58 Pulse Source Pulse Oximeter Temp 98.3 F Temp Source Oral Pulse Oximetry (%) 98 Oxygen Delivery Method Room Air Intake Visit Reasons: 6m follow up Intake Note: Pt is here today for her 6mo. f/u Allergies Chocolate Allergy (Unknown, Verified 12/26/24 09:38) Hives Penicillins (PENICILLINS) Allergy (Unknown, Verified 12/26/24 09:38) RASH rsv vaccine Allergy (Intermediate, Uncoded 12/26/24 09:38) Diffuse rash Medication List - Last Reconciled 12/26/24 by Jina Lopez MD ascorbate calcium (vitamin C) 500 mg PO DAILY calcium carbonate 600 mg PO DAILY cholecalciferol (vitamin D3) 25 mcg PO DAILY denosumab (Prolia) 60 mg subcut [id number] fluticasone propionate 50 mcg/actuation (Flonase Allergy Relief) 1 spray intranasal DAILY folic acid 0.4 mg PO DAILY glucosamine HCl 1,000 mg (2 x 500 mg) PO DAILY levothyroxine 75 mcg PO .Every other morning levothyroxine 50 mcg PO .Every other morning loratadine 10 mg PO DAILY methylcellulose (laxative) (Citrucel) 500 mg PO DAILY midodrine 5 mg PO TID 90 days simvastatin 10 mg PO DAILY 3 months sodium chloride 0.65% (Saline Mist) 1 spray intranasal BID PRN Tobacco use date assessed: 12/26/24 Fall risk assessment: No Falls in past year Last assessed Fall Risk: 12/26/24 Dental Screening Dental Screen Date: 12/26/24 Did you have a dental visit in the last 12 months?: Yes Did you have a dental problem in the last 6 months where you did not have access to dental care?: No Was dental information given to patient?: Patient has dentist HPI 6m follow up HPI Details - The patient is a 69-year-old female presenting today for her follow-up. - she has history of osteoporosis, particularly affecting the hip, and is currently on Prolia , followed by rheumatology clinic. - Hyperlipidemia: The patient's cholesterol levels have increased slightly as noted on recent labs done, but still remains within normal limits. -has history of orthostatic hypotension currently on midodrine -has hypothyroidism currently stable on current dose of levothyroxine at 75 mcg alternating with 50 mcg every other day. - Preventative care: The patient is up to date with vaccinations, including influenza, COVID-19, pneumonia, RSV, shingles, and tetanus. -up-to-date with her breast cancer screening, and colon cancer screening, last colonoscopy done by Dr. Li in 2019, with benign findings, repeat due again in 2029 [facility] Medical History History of orthostatic hypotension Encounter for monitoring alendronate therapy Osteoporosis of femur without pathological fracture Preoperative examination Osteopenia of left femoral neck Recurrent syncope Hx of syncope Palpable thyroid Postmenopause Irritable bowel syndrome Osteoporosis Hearing loss, bilateral Seasonal allergic rhinitis Impaired fasting glucose Dyslipidemia Acquired hypothyroidism Surgical History Hx of arthroscopy History of carpal tunnel surgery of right wrist Hx of dilation and curettage Hx of nasal septoplasty Hx of cholecystectomy History of colonoscopy Family History Mother Breast cancer CAD (coronary artery disease) CVD (cardiovascular disease) Father Medical history non-contributory Brother No problems noted. Social History Household Members Other:: father Housing: House Are you a primary vehicle care specialist to a significant other at home: No Do you presently have visiting nurse or other home services: No Alcohol intake: never Patient Tobacco Use Status: Never used Tobacco e-Cigarette/Vaping Use: Never Used Advance Directives Date on File: 03/11/22 Current occupational status: retired Cognitive needs: No Hearing needs: Yes Vision needs: Yes Questionnaire Thrive Questionnaire Date Thrive assessed: 06/20/24 I am a: Patient What is your living situation today?: I have a steady place to live Within the past 12 months, did the food you bought not last and you didn't have the money to get more?: I choose not to answer this question Within the past 12 months, did you worry whether your food would run out before you got money to buy more?: I choose not to answer this question Do you have trouble paying for medicines?: No Do you have trouble getting transportation to medical appointments?: I choose not to answer this question Do you have trouble paying your heating and electricity bill?: I choose not to answer this question Do you have trouble taking care of your child, family member or friend?: I choose not to answer this question Do you have trouble with day-to-day activities such as bathing, preparing meals, shopping, managing finances, etc.?: No Are you currently unemployed and looking for a job?: I choose not to answer this question Are you interested in more education?: I choose not to answer this question Please select the resources that you would like help with: None Currently or been in a relationship where the following occur: I choose not to answer THRIVE Score: 0 KITTY-7 AMB Questionnaire KITTY-7 Date KITTY - 7 assessed: 12/14/23 Source: Developed by Drs. Devon Whitten, Monica Blue, Kane Ch and colleagues, with an educational jerman from [employer]. Review of Systems Const Reports no additional complaints Eyes Details: Up-to-date with her eye exam, goes to [facility] Denies no additional complaints ENT Denies no additional complaints and Reports hearing loss (Has hearing aid) Card Reports no additional complaints, Denies chest pain, Denies leg edema, Denies lightheadedness, Denies palpitations and Denies dyspnea Resp Denies no additional complaints and Denies dyspnea GI Denies no additional complaints Reports no additional complaints Musc Reports no additional complaints (No history of fractures) Skin/Breast Reports system reviewed and no additional complaints, except as documented Neuro Denies Abnormal speech present Psych Reports no additional complaints Endo Reports no additional complaints and Denies palpitations Kaveh/Lymph Reports no additional complaints Aller/Immun Reports no additional complaints Physical exam (Primary Care) Vital Signs: Last Vital Signs Temp 98.3 F 12/26/24 09:10 Pulse 58 12/26/24 09:10 Resp 16 12/26/24 09:10 BP 122/70 12/26/24 09:10 Pulse Ox 98 12/26/24 09:10 Oxygen Delivery Method Room Air 12/26/24 09:10 BMI result Body Mass Index 26.3 Tobacco/Smoking Status: Tobacco use Status Tobacco use date assessed 12/26/24 12/26/24 09:17 Patient Tobacco Use Status Never used Tobacco 12/26/24 09:17 e-Cigarette/Vaping Use Never Used 12/26/24 09:17 Thrive Assessment: Date of Thrive Assessment Date Thrive assessed 06/20/24 12/26/24 09:17 Currently or been in a relationship where the following occur: I choose not to answer Const Other: Alert oriented x3, no acute cardiorespiratory distress noted, ambulatory with normal gait HENMT Ears: hearing grossly impaired bilaterally (Wears hearing aids) General nose exam: Normal external nose present Face and sinus: Yes face symmetric Mouth: moist mucous membranes Eyes General: appearance normal, both eyes and all related structures Neck Neck: Yes full ROM, Yes no lymphadenopathy and Yes supple Thyroid: Thyroid normal Resp Auscultation: clear to auscultation bilaterally Cardio Other: S1-S2 present regular rate and rhythm Bruits: no abdominal aortic bruits GI Inspection: Yes normal to inspection Palpation (GI): No Abdominal aortic bruit present, Soft to palpation, nontender and no guarding Auscultation: normal bowel sounds General: Yes no CVA tenderness Back/Spine/Pelvis Back: no CVA tenderness and No back tenderness Skin General skin exam: no rashes or lesions noted Neuro General: gait normal, tone normal, moves all extremities, Normal light touch and pain sensation, no focal motor deficits and CN's II-XI intact bilaterally Speech: No Abnormal speech present Extrem General: Yes full ROM, Yes no joint enlargement, Yes no pedal edema and Yes normal gait Psych Appearance: grossly normal and well kempt Mental Status: mental status grossly normal Speech and movement: Normal speech and movement present Affect: normal affect Attitude: cooperative Results Reviewed Results Reviewed: Name: Candy Turpin Age/Sex: 69/F : 1955 Unit#: [id number] Attend Dr: Jina Lopez MD Re12/19/24 Status: DEP REF Location: [facility] Disch: SPEC : [id number] YEN: 12/19/24 STATUS: COMP REQ : [id number] RECD: 12/19/[address]: Jina Lopez MD COMP: 12/19/24 ENTERED: 12/19/[address]: ORDERED: Met Prof Fast, AST, ALT, Lipid Panel, Vitamin D 25-OH, Free T4, TSH Test Result Flag Reference Sodium 142 135-145 mmol/L Potassium 4.1 3.3-5.1 mmol/L CL 108 96-108 mmol/L CO2 28 22-29 mmol/L Gap 10 L 12-20 BUN 15 9-16 mg/dL Creat 0.62 0.5-1.4 mg/dL eGFR > 60 Chronic Kidney Disease: Estimated GFR < 60 mL/min/1.73m2 Severe Kidney Disease: Estimated GFR < 15 mL/min/1.73m2 FBS 83 60-99 mg/dL CA 8.6 8.4-10.2 mg/dL AST (GOT) 28 5-31 U/L ALT (GPT) 19 0-31 U/L Triglyceride 56 <150 mg/dL Desirable Triglyceride: less than 150 mg/dL Borderline High Triglyceride 150-199 mg/dL High Triglyceride: 200-499 mg/dL Very High Triglyceride: greater than or equal to 5OO mg/dL Cholesterol 184 <200 mg/dL Desirable Cholesterol: less than 200 mg/dL Borderline High Cholesterol: 200-239 mg/dL High Cholesterol: greater than 239 mg/dL LDL Calculated 100 H <100 mg/dL Desirable LDL: less than 100 mg/dL Near Optimal/Above Optimal LDL: 110-129 mg/dL Borderline High LDL: 130-159 mg/dL High LDL: 160-189 mg/dL Very High LDL: greater than or equal to 190 mg/dL HDL 73 >40 mg/dL Desirable HDL: greater than 40 mg/dL Note: This HDL assay may give artificially low results in patients with liver disease. Vitamin D 25-OH 117.3 >30 ng/mL Health Based Reference Values* < 20 ng/mL Deficient 20-30 ng/mL Insufficient > 30 ng/mL Sufficient *Cristina GOLDSTEIN. N Engl J Med. 2007;357:266-280 There is no well-established upper level of normal vitamin D levels. Some laboratories use 50 ng/mL as an upper limit of normal. However, toxicity is patient-dependent and may occur at any level. Careful correlation with the patient's presentation is necessary and, if there is concern for vitamin D toxicity, treatment should be considered irrespective of the serum level. Care must be taken in interpreting Vitamin D results from different laboratories and methodologies. Published data demonstrated that results from patients undergoing hemodialysis may show a negative bias when tested with various automated 25-OH vitamin D assays when compared to LC-MS/MS. When testing samples from patients whose predominant form of Vitamin D is Vitamin D2, such as patients receiving Vitamin D2 supplementation, results that are subtherapeutic should be confirmed with another method such as LC-MS/MS. Free T4 1.16 0.71-1.85 ng/dL TSH 3rd Gen. 0.67 0.32-4.0 uIU/mL TSH 3rd Generation ([facility]) Coding Level of Care Code Est Pt Level 4 (78967) Complex EM visit Add On G2211 Diagnoses Dyslipidemia E78.5 History of orthostatic hypotension Z86.79 Impaired fasting glucose R73.01 Acquired hypothyroidism E03.9 Assessment & Plan Assessment & Plan (1) Dyslipidemia: Code(s): E78.5 - Hyperlipidemia, unspecified Category: Medical (2) History of orthostatic hypotension: Code(s): Z86.79 - Personal history of other diseases of the circulatory system Category: Medical (3) Impaired fasting glucose: Code(s): R73.01 - Impaired fasting glucose Category: Medical (4) Acquired hypothyroidism: Code(s): E03.9 - Hypothyroidism, unspecified Category: Medical Plan The patient is advised to continue current medications as her blood pressure and cholesterol levels are well-controlled. She should continue with taking vitamin-D 3 and adequate calcium , in addition to adherence to healthy eating habits and regular weight-bearing exercise. She is also on Prolia followed by endocrine clinic, has an appointment this coming March for further evaluation. Routine vaccinations are up to date, and she should continue to receive them as scheduled. The patient is scheduled for a mammogram in June and a bone density test in March, which should be coordinated with her follow-up visits. Up-to-date with her colon cancer screening, next dose due again in 2029 Patient was informed and verbally consented to the use of an ambient scribe for clinic note documentation during this visit. Orders: Orders Lipid Panel 07/07/25 E78.5 - Hyperlipidemia, unspecified, Z86.79 - Personal history of other diseases of the circulatory system, R73.01 - Impaired fasting glucose, E03.9 - Hypothyroidism, unspecified Alanine Aminotransferase 07/07/25 E78.5 - Hyperlipidemia, unspecified, Z86.79 - Personal history of other diseases of the circulatory system, R73.01 - Impaired fasting glucose, E03.9 - Hypothyroidism, unspecified Aspartate Amino Transferase 07/07/25 E78.5 - Hyperlipidemia, unspecified, Z86.79 - Personal history of other diseases of the circulatory system, R73.01 - Impaired fasting glucose, E03.9 - Hypothyroidism, unspecified Basic Metabolic Panel Fasting 07/07/25 E78.5 - Hyperlipidemia, unspecified, Z86.79 - Personal history of other diseases of the circulatory system, R73.01 - Impaired fasting glucose, E03.9 - Hypothyroidism, unspecified Thyroid Stimulating Hormone 07/07/25 E78.5 - Hyperlipidemia, unspecified, Z86.79 - Personal history of other diseases of the circulatory system, R73.01 - Impaired fasting glucose, E03.9 - Hypothyroidism, unspecified Free T4 (Free Thyroxine) 07/07/25 E78.5 - Hyperlipidemia, unspecified, Z86.79 - Personal history of other diseases of the circulatory system, R73.01 - Impaired fasting glucose, E03.9 - Hypothyroidism, unspecified
--- OUTSIDE RECORDS SUMMARY | 2024-12-26 09:44 | XMS_ITS | Patient Health Record ---
Author Organization [facility] Address [address] [place] [id number] Care Team Providers Care Jingle Writer Name Role Phone John SCHRADER, Jina Primary Care Provider Devon Louise [phone] Allergies Allergen (clinical drug ingredient) Drug/Non Drug [...] day for 30 day(s) Active Saline Nasal [place] 0.65 % Nasally AM and Night Active [...] Problem Status W/U Status Risk Notes Problem [id number] Encounter for screening for malignant neoplasm of colon (Z12.11) Active confirmed Problem [id number] Preprocedural examination (Z01.818) Active confirmed Plan Of Treatment Future Test Test Name Order Date COLONOSCOPY 12/06/2019 Insurance Providers Payer Name Payer Address Payer Phone Subscriber Number Group Number Insured Name Patient Relationship to Insured Coverage Start Date Coverage End Date [facility] [address] [facility] [place] [phone] [id number] ALMA ALEXANDER Self - patient is the insured Medical (General) History Medical History History ICD Code Asthma/allergy injections Denies [place],DM,CVA,renal disease Negative colonoscopy in 2006 Hypothyroidism Hyperlipidemia Osteoporosis Surgical History Surgery Date(Month/Year) Cholecystectomy Right wrist carpal tunnel Right wrist surgery
== END 2024-12-26 09:53 | disposition home or self-care (01) ==
LOC: HO.HMCC 09:01
PROVIDERS: PCP Internal Medicine; Visit Provider Internal Medicine
DX: E78.5 Hyperlipidemia, unspecified (principal); Z86.79 Personal history of other diseases of the circulatory system; R73.01 Impaired fasting glucose; E03.9 Hypothyroidism, unspecified

== ENCOUNTER → 2024-12-26 09:00 | Outpatient (BNVA) | payer MEDICARE, SELFPAY | PROVIDERS: PCP Internal Medicine; Visit Provider Internal Medicine | DX: R73.01 Impaired fasting glucose (principal); E78.5 Hyperlipidemia, unspecified; E03.9 Hypothyroidism, unspecified; Z86.79 Personal history of other diseases of the circulatory system | CPT/HCPCS: 99212 ==

== ENCOUNTER 2024-12-31 08:08 | Outpatient (AMB) | payer MEDICARE, SELFPAY | END 2024-12-31 08:42 | disposition home or self-care (01) | LOC: HO.HMGAL 08:08 | PROVIDERS: PCP Internal Medicine; Visit Provider Registered Nurse Emergency | DX: J30.89 Other allergic rhinitis (principal) | CPT/HCPCS: 95117; 95165 ==

== ENCOUNTER 2025-01-15 08:51 | Outpatient (AMB) | payer MEDICARE, SELFPAY ==
--- OUTSIDE RECORDS SUMMARY | 2024-06-29 05:15 | XMS_ITS ---
Author Organization [facility] Address [address] [place] [address] Care Team Providers Care Vice President Of Procurement Name Role Phone John SCHRADER, Jina Sawyer Primary Care Provider Un available Diana Merritt Unavailable [phone] Allergies Allergen (clinical drug ingredient) Drug/Non Drug [...] directed Orally Active Citrucel Active Saline Nasal [place] A ctive Calcium + Vitamin D3 Active [...] Not-Taking Encounters Encounter Location Date Provider Diagnosis [facility] [place] [address] [place] [address] 06/29/2024 Diana Merritt Plan Of Treatment Next Appt Details Provider Name:Diana mckeon, 03/29/2025 09:00:00 AM, [address] [place], [address], Progress Notes * Aida TURPINOB:1954 (69 yo F)Acc No.[id number]:06/29/2024 Progress Note Patient: Elda BARRAZAAida Provider: Harsha Merritt DPM :1955 A ge:69 Y S ex:Female Date:06/29/2024 Address: [address], [facility] Pcp:Rose Mary Motley Subjective: * Chief Complaints: [...] + Vitamin D3 , Taking Saline Nasal [place] , Taking Citrucel , Taking Vitamin C [...] 0 06/29/2024 Generated for Shey whitlock/Magalie/Godwinitting on: 0 01/15/2025 10:01 AM EDT
--- OUTSIDE RECORDS SUMMARY | 2024-08-07 06:00 | XMS_ITS ---
Author Organization [facility] Address [address] [place] [address] Care Team Providers Care Client Server Programmer Name Role Phone John SCHRADER, Jina Sawyer Primary Care Provider Un available Diana Merritt Unavailable [phone] REASON FOR VISIT for sooner apt Encounters Encounter Location Date Provider Diagnosis [address] [address] 08/07/2024 Diana Merritt Plan Of Treatment Next Appt Details Provider Name:Diana mckeon, 03/29/2025 09:00:00 AM, [address] [place] [address], [address], Progress Notes * Aida TURPINOB:1954 (69 yo F)Acc No.[id number]:08/07/2024 Progress Note Patient: Elda BARRAZA Aida Enriquez Provider: Harsha Merritt DPM :1955 A ge:69 Y S ex:Female Date:08/07/2024 Address: [address] [id number] Pcp:Rose Mary Motley Subjective: * Chief Complaints: [...] DPM Date: 0 08/07/2024 Generated for Shey whitlock/Magalie/Shane on: 0 01/15/2025 10:01 AM EDT
[2025-01-15 09:03] VITALS: BP 110/66; PULSE 58; BMI 26.3
--- NOTE | 2025-01-15 09:03 | MHC.OFFVIS ---
Vital Signs 01/15/25 09:03 Height 4 ft 11 in Weight 130 lb 1.164 oz BMI 26.3 BP 110/66 Blood Pressure Location Lt brachial Position Sitting Pulse 58 Pulse Source Monitor Intake Visit Reasons: 1 yr f/up Supply Chain Assistant Required: No Accompanied by: Self / Same As Patient Allergies Chocolate Allergy (Unknown, Verified 12/26/24 09:38) Hives Penicillins (PENICILLINS) Allergy (Unknown, Verified 12/26/24 09:38) RASH rsv vaccine Allergy (Intermediate, Uncoded 12/26/24 09:38) Diffuse rash Medication List - Last Reconciled 01/15/25 by Tom Griffin MD ascorbate calcium (vitamin C) 500 mg PO DAILY calcium carbonate 600 mg PO DAILY cholecalciferol (vitamin D3) 25 mcg PO DAILY denosumab (Prolia) 60 mg subcut [id number] fluticasone propionate 50 mcg/actuation (Flonase Allergy Relief) 1 spray intranasal DAILY folic acid 0.4 mg PO DAILY glucosamine HCl 1,000 mg (2 x 500 mg) PO DAILY levothyroxine 75 mcg PO .Every other morning levothyroxine 50 mcg PO .Every other morning loratadine 10 mg PO DAILY methylcellulose (laxative) (Citrucel) 500 mg PO DAILY midodrine 5 mg PO TID 90 days simvastatin 10 mg PO DAILY 3 months sodium chloride 0.65% (Saline Mist) 1 spray intranasal BID PRN HPI Comments Details: Candy returns for follow-up regarding dizziness and suspected orthostatic hypotension. She has a history of vasovagal syncope and recurring dizzy spells. Thought to be from low blood pressure/orthostatic hypotension. Overall, this has been stable over the last few years. No new concerns. She is no longer dizzy. No recurring syncope. She remains on midodrine and otherwise doing fine. She states she is still exercising regularly on treadmill and stationary bike and some weights as well. [facility] Medical History History of orthostatic hypotension Encounter for monitoring alendronate therapy Osteoporosis of femur without pathological fracture Preoperative examination Osteopenia of left femoral neck Recurrent syncope Hx of syncope Palpable thyroid Postmenopause Irritable bowel syndrome Osteoporosis Hearing loss, bilateral Seasonal allergic rhinitis Impaired fasting glucose Dyslipidemia Acquired hypothyroidism Surgical History Hx of arthroscopy History of carpal tunnel surgery of right wrist Hx of dilation and curettage Hx of nasal septoplasty Hx of cholecystectomy History of colonoscopy Family History Mother Breast cancer CAD (coronary artery disease) CVD (cardiovascular disease) Father Medical history non-contributory Brother No problems noted. Social History Household Members Other:: father Housing: House Are you a primary resident care assistant to a significant other at home: No Do you presently have visiting nurse or other home services: No Alcohol intake: never Patient Tobacco Use Status: Never used Tobacco e-Cigarette/Vaping Use: Never Used Advance Directives Date on File: 03/11/22 Current occupational status: retired Cognitive needs: No Hearing needs: Yes Vision needs: Yes Review of Systems Const Denies chills, Denies fatigue, Denies fever(s), Denies frequent falls, Denies weakness, Denies weight gain and Denies weight loss ENT Denies dizziness Card Denies chest pain, Denies leg edema, Denies lightheadedness, Denies palpitations, Denies dyspnea and Denies dyspnea on exertion Resp Denies cough, Denies dyspnea and Denies dyspnea on exertion GI Denies hematochezia Musc Denies abnormal gait, Denies muscle weakness, Denies numbness, Denies radiating pain into limb and Denies tingling Neuro Denies abnormal gait, Denies dizziness, Denies frequent falls, Denies numbness, Denies tingling and Denies weakness Endo Denies fatigue and Denies palpitations Physical Exam Vital Signs: Last Vital Signs Pulse 58 01/15/25 09:03 BP 110/66 01/15/25 09:03 BMI result Body Mass Index 26.3 Const General: comfortable and no acute distress Orientation/consciousness: patient oriented x3 HEENT Other: Unremarkable Head: Yes normal to inspection Neck Neck: Yes normal visual inspection Chest Chest palpation & inspection: normal inspection of the chest Resp Auscultation: clear to auscultation bilaterally Cardio Palpation: normal PMI Heart sounds: S1 normal heart sound present, S2 normal heart sound present, no gallops, no murmurs and no rubs GI Palpation (GI): Soft to palpation Back/Spine/Pelvis Other: unremarkable Skin General skin exam: no rashes or lesions noted Neuro General: patient oriented x3 Extrem General: Yes normal to inspection Psych Mental Status: mental status grossly normal Office Procedures EKG Details: EKG with sinus bradycardia at 58/Min; ME prolongation to 218 milliseconds; no ischemic changes; [place]. [id number], Complete Assessment & Plan Assessment & Plan (1) Recurrent syncope: Code(s): R55 - Syncope and collapse Category: Medical (2) Hypotension (arterial): Code(s): I95.9 - Hypotension, unspecified Category: Medical Qualifiers: Hypotension type: idiopathic hypotension Qualified Code(s): I95.0 - Idiopathic hypotension Plan Cardiac studies reviewed. Baseline EKG with sinus bradycardia and mild ME prolongation, otherwise unremarkable. Echocardiogram with LVEF of 60-65%. No significant valvular issues. Tilt-table study repeated and essentially unremarkable. Blood pressures were actually acceptable. Overall, symptoms possibly from low blood pressure/orthostasis. Continue to liberalize salt and continue midodrine. If able, try compression stockings true. Otherwise, follow up in one year and she will call with any concerns. Discussion Notes I discussed with the patient the importance of continuing her current medication regimen and the option to take an additional dose of midodrine if she experiences dizziness. We also reviewed her exercise routine and the results of her recent blood work, which were stable. Patient was informed and verbally consented to the use of an ambient scribe for clinic note documentation during this visit. Patient Instructions: - Continue taking midodrine three times daily. - Take an additional dose of midodrine if dizziness occurs. - Maintain regular exercise routine with treadmill, bike, and dumbbells. - Schedule regular follow-up appointments to monitor condition. Coding Level of Care Code Est Pt Level 3 (91960) Diagnoses Recurrent syncope R55 Idiopathic hypotension I95.0 Hypotension type: idiopathic hypotension CPT Codes EKG - CPT: 27201-[id number], Complete ([id number])
--- OUTSIDE RECORDS SUMMARY | 2025-01-15 10:02 | XMS_ITS | Patient Health Record ---
Author Organization [facility] Address [address] [place] [id number] Care Team Providers Care Emblem Maker Name Role Phone John SCHRADER, Jina Primary Care Provider Devon Louise [phone] Allergies Allergen (clinical drug ingredient) Drug/Non Drug [...] day for 30 day(s) Active Saline Nasal [place] 0.65 % Nasally AM and Night Active [...] Problem Status W/U Status Risk Notes Problem [id number] Encounter for screening for malignant neoplasm of colon (Z12.11) Active confirmed Problem [id number] Preprocedural examination (Z01.818) Active confirmed Plan Of Treatment Future Test Test Name Order Date COLONOSCOPY 12/06/2019 Insurance Providers Payer Name Payer Address Payer Phone Subscriber Number Group Number Insured Name Patient Relationship to Insured Coverage Start Date Coverage End Date [facility] [address] [facility] [place] [phone] [id number] ALMA ALEXANDER Self - patient is the insured Medical (General) History Medical History History ICD Code Asthma/allergy injections Denies [place],DM,CVA,renal disease Negative colonoscopy in 2006 Hypothyroidism Hyperlipidemia Osteoporosis Surgical History Surgery Date(Month/Year) Cholecystectomy Right wrist carpal tunnel Right wrist surgery
--- OUTSIDE RECORDS SUMMARY | 2025-01-15 10:03 | XMS_ITS | Patient Health Record ---
Author Organization [facility] Address [address] [facility] [place] [address] Care Team Providers Care Tool Grinder Name Role Phone John SCHRADER, Jina Sawyer Primary Care Provider Un available Diana Merritt Unavailable [phone] Allergies Allergen (clinical drug ingredient) Drug/Non Drug Allergy documented on EMR Reaction Allergy Type Onset Date Status Chocolate Flavor Unknown Drug Allergy Active Penicillin Unknown Drug Allergy Active Reason For Referral No Information Medications Medication SIG (Take, Route, Frequency, Duration) Notes Start Date End Date Status Citrucel Active Saline Nasal [place] A ctive Calcium + Vitamin D3 Active Glucosamine Sulfate Active Alendronate Sodium 70 MG/75ML 75 mL 30 minutes before the first food, beverage or medicine of the day with plain water Orally; Duration: 30 day(s) Not-Taking Loratadine 10 MG 1 tablet Orally Once a day; Duration: 30 day(s) Active Prolia 60 MG/ML as directed Subcutaneous Not-Taking Flonase Active Folic Acid 800 MCG 1 tablet Orally Once a day; Duration: 30 day(s) Active Midodrine HCl 5 MG 1 tablet Orally three times a day; Duration: 30 days Active Levothyroxine Sodium 50 MCG 1 tablet in the morning on an empty stomach Orally Once a day; Duration: 30 day(s) Alternate Days Active Prolia every 6 months Activ e Levothyroxine Sodium 75 MCG 1 tablet in the morning on an empty stomach Orally Once a day; Duration: 30 day(s) Alternate days Active Simvastatin 10 MG 1 tablet in the evening Orally Once a day; Duration: 30 days Active Vitamin C 500 MG as directed Orally Active Vitamin D3 25 MCG (1000 UT) as directed Active Immunizations Vaccine Route Administration Date Status Comme nts Influenza Unknown 02/22/2024 Administered Social History Tobacco Use: Social History Observation Description Date Details (start date - stop date) Never Smoker NA - NA Alcohol Screen Question Answer Notes Did you have a drink containing alcohol in the p ast year? No Points 0 Interpretation Negative Tobacco use other than smoking: Question Answer Notes Are you an other tobacco user? No Tobacco Control (Standard) Question Answer Notes Tobacco use: Nonsmoker Additional Findings: Tobacco non-user Current no nsmoker AUDIT-C (Standard) Question Answer Notes Did you have a drink containing alcohol in the p ast year? No Points 0 Interpretation Negative Problems Problem Type SNOMED Code ICD Code Onset Dates Problem Status W/U Status Risk Notes Problem Acquired hammer toe of right foot (3058529461518737) Other hammer toe(s) (acquired), right foot (M20.41) Active confirmed Problem Acquired hammer toe of left foot (8923020709294367) Other hammer toe(s) (acquired), left foot (M20.42) Active confirmed Problem Plantar wart (43338054) Plantar wart (B07.0) Active confirmed Problem Bilateral atherosclerosis of arteries of lower limbs (disorder) (12729976387264238 ) Atherosclerosis of [place] artery of both lower extremities, with unspecified presence of clinical manifestation (I70.203) Active confirmed Vital Signs Blood pressure diastolic 60 mm Hg 01/04/2025 Height 4ft 11in in 01/04/2025 Blood pressure systolic 110 mm Hg 01/04/2025 Weight 126 lbs 01/04/2025 BMI 25.45 kg/m2 01/04/2025 Encounters Encounter Location Date Provider Diagnosis [facility] [place] [address] [place] [address] 02/03/2024 Diana Shaina Plantar wart B07.0 ; Tinea unguium B35.1 ; Other hammer toe(s) (acquired), right foot M20.41 ; Atherosclerosis of [place] artery of both lower extremities, with unspecified presence of clinical manifestation I70.203 ; Pain in right toe(s) M79.674 ; Pain in left toe(s) M79.675 ; Right foot pain M79.671 and Other hammer toe(s) (acquired), left foot M20.[address] [address] 04/13/2024 Diana Perica Plantar wart B07.0 ; Tinea unguium B35.1 ; Atherosclerosis of [place] artery of both lower extremities, with unspecified presence of clinical manifestation I70.203 ; Pain in right toe(s) M79.674 ; Pain in left toe(s) M79.675 and Right foot pain M79.[address] [address] 07/04/2024 Diana Perica Plantar wart B07.0 ; Tinea unguium B35.1 ; Atherosclerosis of [place] artery of both lower extremities, with unspecified presence of clinical manifestation I70.203 ; Pain in right toe(s) M79.674 ; Pain in left toe(s) M79.675 and Right foot pain M79.[address] [address] 09/28/2024 Diana Perica Plantar wart B07.0 ; Tinea unguium B35.1 ; Atherosclerosis of [place] artery of both lower extremities, with unspecified presence of clinical manifestation I70.203 ; Pain in right toe(s) M79.674 ; Pain in left toe(s) M79.675 and Right foot pain M79.[address] [address] 01/04/2025 Diana Perica Plantar wart B07.0 ; Tinea unguium B35.1 ; Atherosclerosis of [place] artery of both lower extremities, with unspecified presence of clinical manifestation I70.203 ; Pain in right toe(s) M79.674 ; Pain in left toe(s) M79.675 and Right foot pain M79.[address] [address] 02/23/2024 Diana Perica Assessments Encounter Date Diagnosis (ICD Code) Assessment Notes Treatment Notes Treatment Clinical Notes Section Notes 02/03/2024 Plantar wart (ICD-10 - B07.0) 02/03/2024 Tinea unguium (ICD-10 - B35.1) 04/13/2024 Plantar wart (ICD-10 - B07.0) 07/04/2024 Plantar wart (ICD-10 - B07.0) 09/28/2024 Plantar wart (ICD-10 - B07.0) 09/28/2024 Tinea unguium (ICD-10 - B35.1) 01/04/2025 Plantar wart (ICD-10 - B07.0) 01/04/2025 Tinea unguium (ICD-10 - B35.1) 09/28/2024 Atherosclerosis of [place] artery of both lower extremities, with unspecified presence of clinical manifestation (ICD-10 - I70.203) 01/04/2025 Atherosclerosis of [place] artery of both lower extremities, with unspecified presence of clinical manifestation (ICD-10 - I70.203) 04/13/2024 Atherosclerosis of [place] artery of both lower extremities, with unspecified presence of clinical manifestation (ICD-10 - I70.203) 07/04/2024 Tinea unguium (ICD-10 - B35.1) 04/13/2024 Tinea unguium (ICD-10 - B35.1) 02/03/2024 Other hammer toe(s) (acquired), right foot (ICD-10 - M20.41) 02/03/2024 Atherosclerosis of [place] artery of both lower extremities, with unspecified presence of clinical manifestation (ICD-10 - I70.203) 04/13/2024 Pain in right toe(s) (ICD-10 - M79.674) 07/04/2024 Atherosclerosis of [place] artery of both lower extremities, with unspecified presence of clinical manifestation (ICD-10 - I70.203) 01/04/2025 Pain in right toe(s) (ICD-10 - M79.674) 09/28/2024 Pain in right toe(s) (ICD-10 - M79.674) 01/04/2025 Pain in left toe(s) (ICD-10 - M79.675) 09/28/2024 Pain in left toe(s) (ICD-10 - M79.675) 07/04/2024 Pain in right toe(s) (ICD-10 - M79.674) 04/13/2024 Pain in left toe(s) (ICD-10 - M79.675) 02/03/2024 Pain in right toe(s) (ICD-10 - M79.674) 02/03/2024 Pain in left toe(s) (ICD-10 - M79.675) 04/13/2024 Right foot pain (ICD-10 - M79.671) 07/04/2024 Pain in left toe(s) (ICD-10 - M79.675) 09/28/2024 Right foot pain (ICD-10 - M79.671) 01/04/2025 Right foot pain (ICD-10 - M79.671) 07/04/2024 Right foot pain (ICD-10 - M79.671) 02/03/2024 Right foot pain (ICD-10 - M79.671) 02/03/2024 Other hammer toe(s) (acquired), left foot (ICD-10 - M20.42) Plan Of Treatment Next Appt Details Provider Name:Diana mckeon, 03/29/2025 09:00:00 AM, [address] [facility], [place], [address], Insurance Providers Payer Name Payer Address Payer Phone Subscriber Number Group Number Insured Name Patient Relationship to Insured Coverage Start Date Coverage End Date [facility] [address] [place] [address] [id number] Aida Turpin Self - patient is the insured Medical (General) History Medical History History ICD Code Arthritis Asthma Cataracts High Blood Pressure Osteoporosis Measels Surgical History Surgery Date(Month/Year) Cataracts 02/28/2016 cataract surgery 01/2024
== END 2025-01-15 09:19 | disposition home or self-care (01) ==
LOC: HO.HCS 08:52
PROVIDERS: PCP Internal Medicine; Visit Provider Internal Medicine
DX: R55 Syncope and collapse (principal); I95.0 Idiopathic hypotension
CPT/HCPCS: 93010; 99213

== ENCOUNTER → 2025-01-15 08:51 | Outpatient (BNVA) | payer MEDICARE, SELFPAY | PROVIDERS: PCP Internal Medicine; Visit Provider Internal Medicine | DX: R55 Syncope and collapse (principal); I95.9 Hypotension, unspecified; R42 Dizziness and giddiness | CPT/HCPCS: 93005; 99212 ==

== ENCOUNTER 2025-02-11 08:53 | Outpatient (AMB) | payer MEDICARE, SELFPAY ==
--- OUTSIDE RECORDS SUMMARY | 2024-06-29 05:15 | XMS_ITS ---
Author Organization [facility] Address [address] [place] [address] Care Team Providers Care Oncology Research Rn Name Role Phone John SCHRADER, Jina Sawyer Primary Care Provider Un available Diana Merritt Unavailable [phone] Allergies Allergen (clinical drug ingredient) Drug/Non Drug [...] Orally Active Citrucel Active Saline Nasal [place] A ctive Calcium + Vitamin D3 Active [...] Not-Taking Encounters Encounter Location Date Provider Diagnosis [facility] [place] [address] [place] [address] 06/29/2024 Diana Merritt Plan Of Treatment Next Appt Details Provider Name:Diana mckeon, 03/29/2025 09:00:00 AM, [address] [place], [address], Progress Notes * Aida TURPINOB:1954 (69 yo F)Acc No.[id number]:06/29/2024 Progress Note Patient: Elda BARRAZAAida Provider: Harsha Merritt DPM :1955 A ge:69 Y S ex:Female Date:06/29/2024 Address: [address], [facility] Pcp:Rose Mary Motley Subjective: * Chief Complaints: [...] Vitamin D3 , Taking Saline Nasal [place] , Taking Citrucel , Taking Vitamin C [...] DPM Date: 0 06/29/2024 Generated for Shey whitlock/Magalie/Shane on: 09:48 AM EDT
--- OUTSIDE RECORDS SUMMARY | 2024-08-07 06:00 | XMS_ITS ---
Author Organization [facility] Address [address] [place] [address] Care Team Providers Care Manager Six Sigma Name Role Phone John SCHRADER, Jina Sawyer Primary Care Provider Un available Diana Merritt Unavailable [phone] REASON FOR VISIT for sooner apt Encounters Encounter Location Date Provider Diagnosis [address] [address] 08/07/2024 Diana Merritt Plan Of Treatment Next Appt Details Provider Name:Diana mckeon, 03/29/2025 09:00:00 AM, [address] [place] [address], [address], Progress Notes * Aida TURPINOB:1954 (69 yo F)Acc No.[id number]:08/07/2024 Progress Note Patient: Elda BARRAZA Aida Enriquez Provider: Harsha Merritt DPM :1955 A ge:69 Y S ex:Female Date:08/07/2024 Address: [address] [id number] Pcp:Rose Mary Motley Subjective: * Chief Complaints: [...] 0 08/07/2024 Generated for Shey whitlock/Magalie/Shane on: 09:48 AM EDT
--- OUTSIDE RECORDS SUMMARY | 2025-02-11 09:49 | XMS_ITS | Patient Health Record ---
Author Organization [facility] Address [address] [facility] [place] [address] Care Team Providers Care Semiconductor Equipment Technician Name Role Phone John SCHRADER, Jina Sawyer Primary Care Provider Un available Diana Merritt Unavailable [phone] Allergies Allergen (clinical drug ingredient) Drug/Non Drug Allergy documented on EMR Reaction Allergy Type Onset Date Status Chocolate Flavor Unknown Drug Allergy Active Penicillin Unknown Drug Allergy Active Reason For Referral No Information Medications Medication SIG (Take, Route, Frequency, Duration) Notes Start Date End Date Status Citrucel Active Saline Nasal [place] A ctive Calcium + Vitamin D3 Active [...] Problem Acquired hammer toe of right foot (3031444366389067) Other hammer toe(s) (acquired), right foot (M20.41) Active confirmed Problem Acquired hammer toe of left foot (0665573380942233) Other hammer toe(s) (acquired), left foot (M20.42) Active confirmed Problem Plantar wart (93990222) Plantar wart (B07.0) Active confirmed Problem Bilateral atherosclerosis of arteries of lower limbs (disorder) (57351278971817873 ) Atherosclerosis of [place] artery of both lower extremities, with unspecified presence of clinical manifestation (I70.203) Active confirmed Vital Signs Blood pressure diastolic 60 mm Hg 01/04/2025 Height 4ft 11in in 01/04/2025 Blood pressure systolic 110 mm Hg 01/04/2025 Weight 126 lbs 01/04/2025 BMI 25.45 kg/m2 01/04/2025 Encounters Encounter Location Date Provider Diagnosis [facility] [address] 04/13/2024 Diana Perica Plantar wart B07.0 ; Tinea unguium B35.1 ; Atherosclerosis of [place] artery of both lower extremities, with unspecified presence of clinical manifestation I70.203 ; Pain in right toe(s) M79.674 ; Pain in left toe(s) M79.675 and Right foot pain M79.671 [facility] [address] 07/04/2024 Diana Perica Plantar wart B07.0 ; Tinea unguium B35.1 ; Atherosclerosis of [place] artery of both lower extremities, with unspecified presence of clinical manifestation I70.203 ; Pain in right toe(s) M79.674 ; Pain in left toe(s) M79.675 and Right foot pain M79.[address] [address] 09/28/2024 Diana Perica Plantar wart B07.0 ; Tinea unguium B35.1 ; Atherosclerosis of [place] artery of both lower extremities, with unspecified presence of clinical manifestation I70.203 ; Pain in right toe(s) M79.674 ; Pain in left toe(s) M79.675 and Right foot pain M79.[address] [address] 01/04/2025 Diana Perica Plantar wart B07.0 ; Tinea unguium B35.1 ; Atherosclerosis of [place] artery of both lower extremities, with unspecified presence of clinical manifestation I70.203 ; Pain in right toe(s) M79.674 ; Pain in left toe(s) M79.675 and Right foot pain M79.[address] [address] 02/23/2024 Diana Merritt Assessments Encounter Date Diagnosis (ICD Code) Assessment Notes Treatment Notes Treatment Clinical Notes Section Notes 04/13/2024 Plantar wart (ICD-10 - B07.0) 07/04/2024 Plantar wart (ICD-10 - B07.0) 09/28/2024 Plantar wart (ICD-10 - B07.0) 09/28/2024 Tinea unguium (ICD-10 - B35.1) 01/04/2025 Plantar wart (ICD-10 - B07.0) 01/04/2025 Tinea unguium (ICD-10 - B35.1) 09/28/2024 Atherosclerosis of [place] artery of both lower extremities, with unspecified presence of clinical manifestation (ICD-10 - I70.203) 01/04/2025 Atherosclerosis of [place] artery of both lower extremities, with unspecified presence of clinical manifestation (ICD-10 - I70.203) 04/13/2024 Atherosclerosis of [place] artery of both lower extremities, with unspecified presence of clinical manifestation (ICD-10 - I70.203) 07/04/2024 Tinea unguium (ICD-10 - B35.1) 04/13/2024 Tinea unguium (ICD-10 - B35.1) 04/13/2024 Pain in right toe(s) (ICD-10 - M79.674) 07/04/2024 Atherosclerosis of [place] artery of both lower extremities, with unspecified [...] M79.671) Plan Of Treatment Next Appt Details Provider Name:Diana mckeon, 03/29/2025 09:00:00 AM, [address] [facility], [place], [address], Insurance Providers Payer Name Payer Address Payer Phone Subscriber Number Group Number Insured Name Patient Relationship to Insured Coverage Start Date Coverage End Date [facility] [address] [place] [address] [id number] Aida Turpin Self - patient is the insured 4 Medical (General) History Medical History History ICD Code Arthritis Asthma Cataracts High Blood Pressure Osteoporosis Measels Surgical History Surgery Date(Month/Year) Cataracts 02/28/2016 cataract surgery 01/2024
--- OUTSIDE RECORDS SUMMARY | 2025-02-11 09:49 | XMS_ITS | Patient Health Record ---
Author Organization [facility] Address [address] [place] [address] Care Team Providers Care Short Range Air Defense Artillery Name Role Phone John SCHRADER, Jina Primary Care Provider Devon Louise [phone] Allergies Allergen (clinical drug ingredient) Drug/Non Drug [...] day for 30 day(s) Active Saline Nasal [place] 0.65 % Nasally AM and Night Active [...] Problem Status W/U Status Risk Notes Problem [id number] Encounter for screening for malignant neoplasm of colon (Z12.11) Active confirmed Problem [id number] Preprocedural examination (Z01.818) Active confirmed Plan Of Treatment Future Test Test Name Order Date COLONOSCOPY 12/06/2019 Insurance Providers Payer Name Payer Address Payer Phone Subscriber Number Group Number Insured Name Patient Relationship to Insured Coverage Start Date Coverage End Date [facility] [address] [place] [facility] OF [facility] [place] [phone] [id number] ALMA ALEXANDER Self - patient is the insured Medical (General) History Medical History History ICD Code Asthma/allergy injections Denies [place],DM,CVA,renal disease Negative colonoscopy in 2006 Hypothyroidism Hyperlipidemia Osteoporosis Surgical History Surgery Date(Month/Year) Cholecystectomy Right wrist carpal tunnel Right wrist surgery
== END 2025-02-11 09:46 | disposition home or self-care (01) ==
LOC: HO.HMGAL 08:53
PROVIDERS: Visit Provider Registered Nurse Emergency
DX: J30.89 Other allergic rhinitis (principal)
CPT/HCPCS: 95117; 95165

== ENCOUNTER 2025-03-11 08:30 | Outpatient (AMB) | payer MEDICARE, SELFPAY ==
--- OUTSIDE RECORDS SUMMARY | 2023-09-14 03:30 | XMS_ITS ---
Author Organization [facility] Address [address] [place] [address] Care Team Providers Care Space Control Agent Name Role Phone John SCHRADER, Jina Sawyer Primary Care Provider Un available Diana Merritt Unavailable [phone] Yousif Connolly Unavailable [phone] Devine Encounters Encounter Location Date Provider Diagnosis [address] [address] 09/14/2023 Yousif Connolly Plan Of Treatment Next Appt Details Provider Name:Diana mckeon, 03/29/2025 09:00:00 AM, [address] [place] [address], [phone], Progress Notes * Aida TURPINOB:1954 (70 yo F)Acc No.[id number]:09/14/2023 Progress Notes Patient: Elda BARRAZA Aida Enriquez Provider: Opal Amado DPM :1955 A ge:68 Y S ex:Female Date:09/14/2023 Address: [address] [id number] Pcp:Rose Mary Motley Subjective: * Chief Complaints: [...] 0 09/14/2023 Generated for Shey Matamoros/Shane on: 05/11/2024 08:52 AM EST
--- OUTSIDE RECORDS SUMMARY | 2023-11-04 04:00 | XMS_ITS ---
Author Organization [facility] Address [address] [place] [phone] Care Team Providers Care Retirement Plan Counselor Name Role Phone John SCHRADER, Jina Sawyer Primary Care Provider Un available Diana Merritt Unavailable [phone] Devine Encounters Encounter Location Date Provider Diagnosis [address] [address] 11/04/2023 Diana Merritt Plan Of Treatment Next Appt Details Provider Name:Diana mckeon, 03/29/2025 09:00:00 AM, [address] [place] [address], [phone], Progress Notes * Aida TURPINOB:1954 (70 yo F)Acc No.[id number]:11/04/2023 Progress Note Patient: Elda BARRAZA Aida Enriquez Provider: Harsha Merritt DPM :1955 A ge:68 Y S ex:Female Date:11/04/2023 Address: [id number] Pcp:Rose Mary Motley Subjective: * Chief Complaints: [...] Merritt DPM Date: 0 11/04/2023 Generated for hSey Barahona on: 05/11/2024 08:52 AM EST
--- OUTSIDE RECORDS SUMMARY | 2024-06-29 04:15 | XMS_ITS ---
Author Organization [facility] Address [address] [place] [address] Care Team Providers Care Environmental Health Officer Name Role Phone John SCHRADER, Jina Sawyer Primary Care Provider Un available Diana Merritt Unavailable [phone] Allergies Allergen (clinical drug ingredient) Drug/Non Drug Allergy documented on EMR Reaction Allergy Type Onset Date Status Chocolate Flavor Unknown Drug Allergy Active Penicillin Unknown Drug Allergy Active REASON FOR VISIT Dr Devine Medications Medication SIG (Take, Route, Frequency, Duration) Notes Start Date End Date Status Folic Acid 800 MCG 1 tablet Orally Once a day; Duration: 30 day(s) Active Levothyroxine Sodium 50 MCG 1 tablet in the morning on an empty stomach Orally Once a day; Duration: 30 day(s) Alternate Days Active Levothyroxine Sodium 75 MCG 1 tablet in the morning on an empty stomach Orally Once a day; Duration: 30 day(s) Alternate days Active Vitamin D3 25 MCG (1000 UT) as directed Active Simvastatin 10 MG 1 tablet in the evening Orally Once a day; Duration: 30 days Active Vitamin C 500 MG as directed Orally Active Citrucel Active Saline Nasal [place] A ctive Calcium + Vitamin D3 Active Glucosamine Sulfate Active Alendronate Sodium 70 MG/75ML 75 mL 30 minutes before the first food, beverage or medicine of the day with plain water Orally; Duration: 30 day(s) Not-Taking Loratadine 10 MG 1 tablet Orally Once a day; Duration: 30 day(s) Active Flonase Active Midodrine HCl 5 MG 1 tablet Orally three times a day; Duration: 30 days Active Prolia every 6 months Activ e Prolia 60 MG/ML as directed Subcutaneous Not-Taking Encounters Encounter Location Date Provider Diagnosis [facility] [place] [address] [place] [address] 06/29/2024 Diana Merritt Plan Of Treatment Next Appt Details Provider Name:Diana mckeon, 03/29/2025 09:00:00 AM, [address] [place], [address], Progress Notes * Aiad TURPINOB:1954 (70 yo F)Acc No.[id number]:06/29/2024 Progress Note Patient: Elda BARRAZAAida Provider: Harsha Merritt DPM :1955 A ge:69 Y S ex:Female Date:06/29/2024 Address: [address], [facility] Pcp:Rose Mary Motley Subjective: * Chief Complaints: * [address] Devine. * Medical History: A rthritis, Asthma, Cataracts , High Blood Pressure, Osteoporosis, Measels. * Medications: T mercyg Prolia , Notes to Pharmacist: every 6 months, Taking Midodrine HCl 5 MG Tablet 1 tablet Orally three times a day , Taking Flonase , Taking Loratadine 10 MG Tablet 1 tablet Orally Once a day , Taking Glucosamine Sulfate , Taking Calcium + Vitamin D3 , Taking Saline Nasal [place] , Taking Citrucel , Taking Vitamin C 500 MG Capsule as directed Orally , Taking Simvastatin 10 MG Tablet 1 tablet in the evening Orally Once a day , Taking Vitamin D3 25 MCG (1000 UT) Capsule as directed , Taking Levothyroxine Sodium 75 MCG Tablet 1 tablet in the morning on an empty stomach Orally Once a day , Notes to Pharmacist: Alternate days, Taking Levothyroxine Sodium 50 MCG Tablet 1 tablet in the morning on an empty stomach Orally Once a day , Notes to Pharmacist: Alternate Days, Taking Folic Acid 800 MCG Tablet 1 tablet Orally Once a day , Not-Taking/PRN Prolia 60 MG/ML Solution Prefilled Syringe as directed Subcutaneous , Not-Taking/PRN Alendronate Sodium 70 MG/75ML Solution 75 mL 30 minutes before the first food, beverage or medicine of the day with plain water Orally * Allergies: P enicillin, Chocolate Flavor: Allergy. Objective: * Vitals: Assessment: Plan: * Treatment: * Images: * The named appointment provid er may or may not be the originator of this progress note, and it is not deemed complete until electronically signed by the appointment provider. Sign off status: Pending * Provider: Harsha Merritt DPM Date: 0 06/29/2024 Generated for Shey whitlock/Magalie/Godwinitting on: 05/11/2024 08:52 AM EST
--- OUTSIDE RECORDS SUMMARY | 2024-08-07 05:00 | XMS_ITS ---
Author Organization [facility] Address [address] [place] [address] Care Team Providers Care Micromatic Hone Operator Name Role Phone John SCHRADER, Jina Sawyer Primary Care Provider Un available Diana Merritt Unavailable [phone] REASON FOR VISIT for sooner apt Encounters Encounter Location Date Provider Diagnosis [address] [address] 08/07/2024 Diana Merritt Plan Of Treatment Next Appt Details Provider Name:Diana mckeon, 03/29/2025 09:00:00 AM, [address] [place] [address], [address], Progress Notes * Aida TURPINOB:1954 (70 yo F)Acc No.[id number]:08/07/2024 Progress Note Patient: Elda BARRAZA Aida Enriquez Provider: Harsha Merritt DPM :1955 A ge:69 Y S ex:Female Date:08/07/2024 Address: [place] [id number] Pcp:Rose Mary Motley Subjective: * Chief Complaints: [...] 0 08/07/2024 Generated for Shey Matamoros/Shane on: 05/11/2024 08:52 AM EST
--- OUTSIDE RECORDS SUMMARY | 2025-03-11 08:53 | XMS_ITS | Patient Health Record ---
Author Organization [facility] Address [address] [place] [address] Care Team Providers Care Design Drafter Chief Name Role Phone John SCHRADER, Jina Primary Care Provider Devon Louise [phone] Allergies Allergen (clinical drug ingredient) Drug/Non Drug Allergy documented on EMR Reaction Allergy Type Onset Date Status Chocolate Natural & Artifical Unknown Drug Allergy Active penicillin G Penicillin G Sodium Unknown Drug Allergy Active Reason For Referral No Information Medications Medication SIG (Take, Route, Frequency, Duration) Notes Start Date End Date Status Folic Acid 400 MCG 1 tablet Orally Once a day; Duration: 30 day(s) Active Alendronate Sodium 70 MG Oral; Duration: 90 Active Vitamin D 25 MCG (1000 UT) 1 tablet Oral ly Once a day; Duration: 30 day(s) Active Loratadine 10 MG 1 tablet Orally Once a day; Duration: 30 day(s) Active Glucosamine Sulfate Active Levothyroxine Sodium 75 MCG alternating with 50 mg Oral Active Simvastatin 10 MG TK 1 T PO QOD Oral; Duration: 90 Active Flonase Allergy Relief Active Citrucel Active Vitamin C 500 MG as directed Orally Active Calcium 600 MG 1 tablet with meals Orally Twice a day; Duration: 30 day(s) Active Saline Nasal [place] 0.65 % Nasally AM and Night Active [...] Problem Status W/U Status Risk Notes Problem Screening for malignant neoplasm of colon (002282834) Encounter for screening for malignant neoplasm of colon (Z12.11) Active confirmed Problem Preprocedural examination (570440959307901) Preprocedural examination (Z01.818) Active confirmed Plan Of Treatment Future Test Test Name Order Date COLONOSCOPY 12/06/2019 Insurance Providers Payer Name Payer Address Payer Phone Subscriber Number Group Number Insured Name Patient Relationship to Insured Coverage Start Date Coverage End Date [facility] [address] [place] [phone] [id number] ALMA ALEXANDER Self - patient is the insured Medical (General) History Medical History History ICD Code Asthma/allergy injections Denies [place],DM,CVA,renal disease Negative colonoscopy in 2006 Hypothyroidism Hyperlipidemia Osteoporosis Surgical History Surgery Date(Month/Year) Cholecystectomy Right wrist carpal tunnel Right wrist surgery
--- OUTSIDE RECORDS SUMMARY | 2025-03-11 08:53 | XMS_ITS | Patient Health Record ---
Author Organization [facility] Address [address] [facility] [place] [address] Care Team Providers Care Stain Maker Name Role Phone John SCHRADER, Jina Sawyer Primary Care Provider Un available Diana Merritt Unavailable [phone] Allergies Allergen (clinical drug ingredient) Drug/Non Drug Allergy documented on EMR Reaction Allergy Type Onset Date Status Chocolate Flavor Unknown Drug Allergy Active Penicillin Unknown Drug Allergy Active Reason For Referral No Information Medications Medication SIG (Take, Route, Frequency, Duration) Notes Start Date End Date Status Citrucel Active Saline Nasal [place] A ctive Calcium + Vitamin D3 Active [...] Problem Acquired hammer toe of right foot (2539230051270775) Other hammer toe(s) (acquired), right foot (M20.41) Active confirmed Problem Acquired hammer toe of left foot (2227337277647518) Other hammer toe(s) (acquired), left foot (M20.42) Active confirmed Problem Plantar wart (67917829) Plantar wart (B07.0) Active confirmed Problem Bilateral atherosclerosis of arteries of lower limbs (disorder) (07129104453461969 ) Atherosclerosis of [place] artery of both lower extremities, with unspecified presence of clinical manifestation (I70.203) Active confirmed Vital Signs Blood pressure diastolic 60 mm Hg 01/04/2025 Height 4ft 11in in 01/04/2025 Blood pressure systolic 110 mm Hg 01/04/2025 Weight 126 lbs 01/04/2025 BMI 25.45 kg/m2 01/04/2025 Encounters Encounter Location Date Provider Diagnosis [facility] [address] 04/13/2024 Diana Perica Plantar wart B07.0 ; Tinea unguium B35.1 ; Atherosclerosis of [place] artery of both lower extremities, with unspecified presence of clinical manifestation I70.203 ; Pain in right toe(s) M79.674 ; Pain in left toe(s) M79.675 and Right foot pain M79.671 [facility] [address] 07/04/2024 Diana Perica Plantar wart B07.0 ; Tinea unguium B35.1 ; Atherosclerosis of [place] artery of both lower extremities, with unspecified presence of clinical manifestation I70.203 ; Pain in right toe(s) M79.674 ; Pain in left toe(s) M79.675 and Right foot pain M79.[address] [address] 09/28/2024 Diana Perica Plantar wart B07.0 ; Tinea unguium B35.1 ; Atherosclerosis of [place] artery of both lower extremities, with unspecified presence of clinical manifestation I70.203 ; Pain in right toe(s) M79.674 ; Pain in left toe(s) M79.675 and Right foot pain M79.[address] [address] 01/04/2025 Diana Perica Plantar wart B07.0 ; Tinea unguium B35.1 ; Atherosclerosis of [place] artery of both lower extremities, with unspecified [...] unguium (ICD-10 - B35.1) 09/28/2024 Atherosclerosis of [place] artery of both lower extremities, with unspecified presence of clinical manifestation (ICD-10 - I70.203) 01/04/2025 Atherosclerosis of [place] artery of both lower extremities, with unspecified presence of clinical manifestation (ICD-10 - I70.203) 04/13/2024 Atherosclerosis of [place] artery of both lower extremities, with unspecified presence of clinical manifestation (ICD-10 - I70.203) 07/04/2024 Tinea unguium (ICD-10 - B35.1) 04/13/2024 Tinea unguium (ICD-10 - B35.1) 04/13/2024 Pain in right toe(s) (ICD-10 - M79.674) 07/04/2024 Atherosclerosis of [place] artery of both lower extremities, with unspecified [...] Provider Name:Diana mckeon, 03/29/2025 09:00:00 AM, [address] [facility], [place], [address], Insurance Providers Payer Name Payer Address Payer Phone Subscriber Number Group Number Insured Name Patient Relationship to Insured Coverage Start Date Coverage End Date [employer] [place] [employer] Advantage [facility] [address] [place] [id number] Aida Turpin Self - patient is the insured Medical (General) History Medical History History ICD Code Arthritis Asthma Cataracts High Blood Pressure Osteoporosis Measels Surgical History Surgery Date(Month/Year) Cataracts 02/28/2016 cataract surgery 01/2024
== END 2025-03-11 08:32 | disposition home or self-care (01) ==
LOC: HO.HMGAL 08:30
PROVIDERS: PCP Internal Medicine; Visit Provider Registered Nurse Emergency
DX: J30.89 Other allergic rhinitis (principal)
CPT/HCPCS: 95117; 95165

== ENCOUNTER 2025-03-12 09:16 | Outpatient (REF) | payer MEDICARE, SELFPAY ==
--- OUTSIDE RECORDS SUMMARY | 2023-09-14 03:30 | XMS_ITS ---
Author Organization [facility] Address [address] [place] [address] Care Team Providers Care Paint Stock Clerk Name Role Phone John SCHRADER, Jina aSwyer Primary Care Provider Un available Diana Merritt Unavailable [phone] Yousif Connolly Unavailable [phone] Devine Encounters Encounter Location Date Provider Diagnosis [address] [address] 09/14/2023 Yousif Connolly Plan Of Treatment Next Appt Details Provider Name:Diana mckeon, 03/29/2025 09:00:00 AM, [address] [place] [address], [phone], Progress Notes * Aida TURPINOB:1954 (70 yo F)Acc No.[id number]:09/14/2023 Progress Notes Patient: Elda BARRAZA Aida Enriquez Provider: Opal Amado DPM :1955 A ge:68 Y S ex:Female Date:09/14/2023 Address: [address] [id number] Pcp:Rose Mary Motley Subjective: * Chief Complaints: * [address] Devine. * Medical History: Objective: * Vitals: Assessment: Plan: * Treatment: * Images: * The named appointment provid er may or may not be the originator of this progress note, and it is not deemed complete until electronically signed by the appointment provider. Sign off status: Pending * Provider: Opal Amado DPM Date: 0 09/14/2023 Generated for Shey Matamoros/Shane on: 05/12/2024 10:03 AM EST
--- OUTSIDE RECORDS SUMMARY | 2023-11-04 04:00 | XMS_ITS ---
Author Organization [facility] Address [address] [place] [phone] Care Team Providers Care Box Annealer Name Role Phone John SCHRADER, Jina Sawyer Primary Care Provider Un available Diana Merritt Unavailable [phone] Devine Encounters Encounter Location Date Provider Diagnosis [address] [address] 11/04/2023 Diana Merritt Plan Of Treatment Next Appt Details Provider Name:Diana mckeon, 03/29/2025 09:00:00 AM, [address] [place] [address], [phone], Progress Notes * Aida TURPINOB:1954 (70 yo F)Acc No.[id number]:11/04/2023 Progress Note Patient: Elda BARRAZA Aida Enriquez Provider: Harsha Merritt DPM :1955 A ge:68 Y S ex:Female Date:11/04/2023 Address: [address] [id number] Pcp:Rose Mary Motley Subjective: * Chief Complaints: [...] 0 11/04/2023 Generated for Shey Barahona on: 05/12/2024 10:03 AM EST
--- OUTSIDE RECORDS SUMMARY | 2024-06-29 04:15 | XMS_ITS ---
Author Organization [facility] Address [address] [place] [address] Care Team Providers Care Academic Support Assistant Name Role Phone John SCHRADER, Jina Sawyer Primary Care Provider Un available Diana Merritt Unavailable [phone] Allergies Allergen (clinical drug ingredient) Drug/Non Drug [...] directed Orally Active Citrucel Active Saline Nasal [place] A ctive Calcium + Vitamin D3 Active [...] Not-Taking Encounters Encounter Location Date Provider Diagnosis [facility] [place] [address] [place] [address] 06/29/2024 Diana Merritt Plan Of Treatment Next Appt Details Provider Name:Diana mckeon, 03/29/2025 09:00:00 AM, [address] [place], [address], Progress Notes * Aida TURPINOB:1954 (70 yo F)Acc No.[id number]:06/29/2024 Progress Note Patient: Elda BARRAZAAida Provider: Harsha Merritt DPM :1955 A ge:69 Y S ex:Female Date:06/29/2024 Address: [address], [facility] Pcp:Rose Mary Motley Subjective: * Chief Complaints: [...] + Vitamin D3 , Taking Saline Nasal [place] , Taking Citrucel , Taking Vitamin C [...] 0 06/29/2024 Generated for Shey whitlock/Magalie/Godwinitting on: 05/12/2024 10:03 AM EST
--- OUTSIDE RECORDS SUMMARY | 2024-08-07 05:00 | XMS_ITS ---
Author Organization [facility] Address [address] [place] [address] Care Team Providers Care Door Attendant Name Role Phone John SCHRADER, Jina Sawyer Primary Care Provider Un available Diana Merritt Unavailable [phone] REASON FOR VISIT for sooner apt Encounters Encounter Location Date Provider Diagnosis [address] [address] 08/07/2024 Diana Merritt Plan Of Treatment Next Appt Details Provider Name:Diana mckeon, 03/29/2025 09:00:00 AM, [address] [place] [address], [address], Progress Notes * Aida TURPINOB:1954 (70 yo F)Acc No.[id number]:08/07/2024 Progress Note Patient: Elda BARRAZA Aida Enriquez Provider: Harsha Merritt DPM :1955 A ge:69 Y S ex:Female Date:08/07/2024 Address: [address] [id number] Pcp:Rose Mary Motley Subjective: * Chief Complaints: [...] DPM Date: 0 08/07/2024 Generated for Shey Matamoros/Shane on: 05/12/2024 10:03 AM EST
--- OUTSIDE RECORDS SUMMARY | 2025-03-12 10:04 | XMS_ITS | Patient Health Record ---
Author Organization [facility] Address [address] [place] [address] Care Team Providers Care Aboriginal Education Worker Coordinator Name Role Phone John SCHRADER, Jina Primary Care Provider Devon Louise [phone] Allergies Allergen (clinical drug ingredient) Drug/Non Drug [...] day; Duration: 30 day(s) Active Saline Nasal [place] 0.65 % Nasally AM and Night Active [...] Problem Screening for malignant neoplasm of colon (424400870) Encounter for screening for malignant neoplasm of colon (Z12.11) Active confirmed Problem Preprocedural examination (485076954752082) Preprocedural examination (Z01.818) Active confirmed Plan Of Treatment Future Test Test Name Order Date COLONOSCOPY 12/06/2019 Insurance Providers Payer Name Payer Address Payer Phone Subscriber Number Group Number Insured Name Patient Relationship to Insured Coverage Start Date Coverage End Date [facility] [address] [place] [address] [phone] [id number] ALMA ALEXANDER Self - patient is the insured Medical (General) History Medical History History ICD Code Asthma/allergy injections Denies [place],DM,CVA,renal disease Negative colonoscopy in 2006 Hypothyroidism Hyperlipidemia Osteoporosis Surgical History Surgery Date(Month/Year) Cholecystectomy Right wrist carpal tunnel Right wrist surgery
--- OUTSIDE RECORDS SUMMARY | 2025-03-12 10:04 | XMS_ITS | Patient Health Record ---
Author Organization [facility] Address [address] [facility] [place] [place] [address] Care Team Providers Care Hardware Supplies Sales Representative Name Role Phone John SCHRADER, Jina Sawyer Primary Care Provider Un available Diana Merritt Unavailable [phone] Allergies Allergen (clinical drug ingredient) Drug/Non Drug Allergy documented on EMR Reaction Allergy Type Onset Date Status Chocolate Flavor Unknown Drug Allergy Active Penicillin Unknown Drug Allergy Active Reason For Referral No Information Medications Medication SIG (Take, Route, Frequency, Duration) Notes Start Date End Date Status Citrucel Active Saline Nasal [place] A ctive Calcium + Vitamin D3 Active [...] Problem Acquired hammer toe of right foot (2914087585757627) Other hammer toe(s) (acquired), right foot (M20.41) Active confirmed Problem Acquired hammer toe of left foot (4325826723616563) Other hammer toe(s) (acquired), left foot (M20.42) Active confirmed Problem Plantar wart (52391247) Plantar wart (B07.0) Active confirmed Problem Bilateral atherosclerosis of arteries of lower limbs (disorder) (43293609501000623 ) Atherosclerosis of [place] artery of both lower extremities, with unspecified presence of clinical manifestation (I70.203) Active confirmed Vital Signs Blood pressure diastolic 60 mm Hg 01/04/2025 Height 4ft 11in in 01/04/2025 Blood pressure systolic 110 mm Hg 01/04/2025 Weight 126 lbs 01/04/2025 BMI 25.45 kg/m2 01/04/2025 Encounters Encounter Location Date Provider Diagnosis [facility] [address] 04/13/2024 Diana Perica Plantar wart B07.0 ; Tinea unguium B35.1 ; Atherosclerosis of [place] artery of both lower extremities, with unspecified presence of clinical manifestation I70.203 ; Pain in right toe(s) M79.674 ; Pain in left toe(s) M79.675 and Right foot pain M79.671 [facility] [address] 07/04/2024 Diana Perica Plantar wart B07.0 ; Tinea unguium B35.1 ; Atherosclerosis of [place] artery of both lower extremities, with unspecified presence of clinical manifestation I70.203 ; Pain in right toe(s) M79.674 ; Pain in left toe(s) M79.675 and Right foot pain M79.[address] [address] 09/28/2024 Diana Perica Plantar wart B07.0 ; Tinea unguium B35.1 ; Atherosclerosis of [place] artery of both lower extremities, with unspecified presence of clinical manifestation I70.203 ; Pain in right toe(s) M79.674 ; Pain in left toe(s) M79.675 and Right foot pain M79.[address] [address] 01/04/2025 Diana Perica Plantar wart B07.0 ; Tinea unguium B35.1 ; Atherosclerosis of [place] artery of both lower extremities, with unspecified [...] unguium (ICD-10 - B35.1) 09/28/2024 Atherosclerosis of [place] artery of both lower extremities, with unspecified presence of clinical manifestation (ICD-10 - I70.203) 01/04/2025 Atherosclerosis of [place] artery of both lower extremities, with unspecified presence of clinical manifestation (ICD-10 - I70.203) 04/13/2024 Atherosclerosis of [place] artery of both lower extremities, with unspecified presence of clinical manifestation (ICD-10 - I70.203) 07/04/2024 Tinea unguium (ICD-10 - B35.1) 04/13/2024 Tinea unguium (ICD-10 - B35.1) 04/13/2024 Pain in right toe(s) (ICD-10 - M79.674) 07/04/2024 Atherosclerosis of [place] artery of both lower extremities, with unspecified [...] Provider Name:Diana mckeon, 03/29/2025 09:00:00 AM, [address] [facility], [place], [address], Insurance Providers Payer Name Payer Address Payer Phone Subscriber Number Group Number Insured Name Patient Relationship to Insured Coverage Start Date Coverage End Date [employer] [place] Medicare [place]vantage [facility] [address] [place] [address] [id number] Aida Turpin Self - patient is the insured Medical (General) History Medical History History ICD Code Arthritis Asthma Cataracts High Blood Pressure Osteoporosis Measels Surgical History Surgery Date(Month/Year) Cataracts 02/28/2016 cataract surgery 01/2024
[2025-03-12 11:18] LABS: Alanine Aminotransferase 29 U/L (0-31); Albumin Level 4.4 g/dL (3.5-5.0); Alkaline Phosphatase 68 U/L (39-117); Anion Gap 12 (12-20); Aspartate Amino Transferase 32 U/L (5-31); Blood Urea Nitrogen 17 mg/dL (9-16); Calcium 9.0 mg/dL (8.4-10.2); Carbon Dioxide 27 mmol/L (22-29); Chloride 104 mmol/L (96-108); Estimated Glomerular Filt Rate > 60; Potassium 3.7 mmol/L (3.3-5.1); Sodium 139 mmol/L (135-145); Total Protein 7.0 g/dL (6.5-8.0)
== END 2025-03-12 09:17 | disposition home or self-care (01) ==
LOC: HO.HMGCLDS 09:16
PROVIDERS: PCP Internal Medicine; Visit Provider Student in an Organized Health Care Education/Training Program
DX: M81.0 Age-related osteoporosis without current pathological fracture (principal); Z79.899 Other long term (current) drug therapy; E55.9 Vitamin D deficiency, unspecified
CPT/HCPCS: 36415; 80053; 82306

== ENCOUNTER 2025-03-21 08:09 | Outpatient (AMB) | payer MEDICARE, SELFPAY ==
--- NOTE | 2025-03-21 08:12 | A.OFFVIS_ITS ---
Vital Signs 03/21/25 08:22 Height 4 ft 11 in Weight 129 lb 10.109 oz BMI 26.2 BP 134/80 Blood Pressure Location Lt brachial Position Sitting Pulse 64 Pulse Source Pulse Oximeter Pulse Oximetry (%) 99 Oxygen Delivery Method Room Air Intake Visit Reasons: f/u osteoporosis/ prolia Intake Note: Patient presents for Osteoporosis and Prolia injection. Allergies Chocolate Allergy (Unknown, Verified 03/21/25 08:20) Hives Penicillins (PENICILLINS) Allergy (Unknown, Verified 03/21/25 08:20) RASH rsv vaccine Allergy (Intermediate, Uncoded 12/26/24 09:38) Diffuse rash Medication List - Last Reconciled 03/21/25 by Sindi Valles MD ascorbate calcium (vitamin C) 500 mg PO DAILY calcium carbonate 600 mg PO DAILY cholecalciferol (vitamin D3) 25 mcg PO DAILY denosumab (Prolia) 60 mg subcut [id number] fluticasone propionate 50 mcg/actuation (Flonase Allergy Relief) 1 spray intranasal DAILY folic acid 0.4 mg PO DAILY glucosamine HCl 1,000 mg (2 x 500 mg) PO DAILY levothyroxine 75 mcg PO .Every other morning levothyroxine 50 mcg PO .Every other morning loratadine 10 mg PO DAILY methylcellulose (laxative) (Citrucel) 500 mg PO DAILY midodrine 5 mg PO TID 90 days simvastatin 10 mg PO DAILY 3 months sodium chloride 0.65% (Saline Mist) 1 spray intranasal BID PRN HPI Comments Details: Patient is a 70 y.o. female hypothyroidism, HLD, IBS, seasonal allegies, hearling loss and osteoporosis here today for follow up Interval History: Patient last seen 09/19/24 with me - On Prolia 60mg SC every 6 months - Here for her prolia injection - Exercises: stationary bike, treadmill, 3lb weights - No fractures or falls since the last visit Today - On Prolia 60mg SC every 6 months - Doing well - No falls or fractures - Continues to exercise Rheumatologic History: Osteoporosis - Alendronate 04/2019 -06/2023 - Prolia 09/2023 - Initial history: 68-year-old female with osteoporosis is referred by her PCP for worsening osteoporosis. Patient had been on alendronate since 2019. Recent DEXA scan showed significantly worsening bone density. Patient states that does not recall any history of fractures. She stated that she was having falls recently, she was told that it was due to low blood pressure and she was started on midodrine with some improvement. She has not had any recent falls. Patient reached menopause at age 40-50. She does not have oophorectomy. She exercises for 50 minutes daily. She states that recently she has been having episodes of numbness on her left lower extremity as well as left lower extremity discomfort. Current Rheumatology Medication(s): Prolia 60mg SC every 6 months Vitamin D and calcium supplementation [facility] Medical History History of orthostatic hypotension Encounter for monitoring alendronate therapy Osteoporosis of femur without pathological fracture Preoperative examination Osteopenia of left femoral neck Recurrent syncope Hx of syncope Palpable thyroid Postmenopause Irritable bowel syndrome Osteoporosis Hearing loss, bilateral Seasonal allergic rhinitis Impaired fasting glucose Dyslipidemia Acquired hypothyroidism Surgical History Hx of arthroscopy History of carpal tunnel surgery of right wrist Hx of dilation and curettage Hx of nasal septoplasty Hx of cholecystectomy History of colonoscopy Family History Mother Breast cancer CAD (coronary artery disease) CVD (cardiovascular disease) Father Medical history non-contributory Brother No problems noted. Social History Household Members Other:: father Housing: House Are you a primary healthcare insurance sales agent to a significant other at home: No Do you presently have visiting nurse or other home services: No Alcohol intake: never Patient Tobacco Use Status: Never used Tobacco e-Cigarette/Vaping Use: Never Used Advance Directives Date on File: 03/11/22 Current occupational status: retired Cognitive needs: No Hearing needs: Yes Vision needs: Yes Review of Systems Narrative Review of Systems Constitutional: Denies fever, chills, weight loss ENT: Denies vision changes, eye pain or eye redness, dental caries, dry mouth GI: Denies nausea, vomiting, diarrhea, abdominal pain, change in BM Pulm: Denies SOB, WILKERSON, hemoptysis, wheezing Cards: Denies chest pain, palpitations Skin: Denies Raynaud's, rash, nail changes, photosensitivity, DIE STORAGE WORKER: Denies headaches, weakness, paresthesias, recurrent falls MSK: as per HPI All other systems reviewed and are unremarkable except noted above Physical Exam Exam Exam: Vital signs reviewed Physical Examination CONSTITUITIONAL Patient alert and cooperative. Well appearing and in no apparent painful distress MSK Hands * Right Hand: Able to make a fist. No swelling or tenderness to palpation of the MCPs, PIPs or DIPs. * Left Hand: Able to make a fist. No swelling or tenderness to palpation of the MCPs, PIPs or DIPs. * Herbedens nodes noted bilaterally Wrists * Right Wrist: Full ROM to flexion and extension. No swelling or TTP * Left Wrist: Full ROM to flexion and extension. No swelling or TTP Elbows * Right Elbow: Full ROM. No swelling or TTP. No TTP of the medial epicondyle. No TTP of the lateral epicondyle * Left Elbow: Full ROM. No swelling or TTP. No TTP of the medial epicondyle. No TTP of the lateral epicondyle Shoulders * Right shoulder: No swelling noted. No TTP of the AC joint. No TTP of the subacromial bursa. No TTP of the posterior shoulder * Left shoulder: No swelling noted. No TTP of the AC joint. No TTP of the subacromial bursa. No TTP of the posterior shoulder Knees * Right knee: No swelling noted. No TTP of the knee joint line. No TTP of pes anserine bursa * Left knee: No swelling noted. No TTP of the knee joint line. No TTP of pes anserine bursa. * Crepitations felt bilaterally Ankles * Right ankle: Good ankle dorsiflexion and plantar flexion. No swelling. No TTP of the ankle joint * Left ankle: Good ankle dorsiflexion and plantar flexion. No swelling. No TTP of the ankle joint Feet * Right foot: Negative squeeze test * Left foot: Negative squeeze test Tender points? * No tenderness to palpation of the bilateral trapezius, supraspinatus, anterior costochondral junctions, bilateral suboccipital muscle insertions SKIN No rashes Vital Signs: Last Vital Signs Pulse 64 03/21/25 08:22 BP 134/80 03/21/25 08:22 Pulse Ox 99 03/21/25 08:22 Oxygen Delivery Method Room Air 03/21/25 08:22 BMI result Body Mass Index 26.2 Office Meds Prolia 60 mg/mL subcutaneous syringe Performing Provider: Sindi Valles MD Performing Location: [facility] Administered by: Angela Stallings RN on 03/21/25 08:32 Dose Route Admin Location Dispensed Lot Number Expiration Date NDC Food Safety Officer 60 mg subcut left thigh 1 mL [id number] 05/08/27 28857-151-23 AMGEN Total Dispensed Waste 1 mL 0 % Results Reviewed Results Reviewed: Laboratory Tests 03/12/25 09:20 Sodium 139 Potassium 3.7 Chloride 104 Carbon Dioxide 27 BUN 17 H Creatinine 0.57 AST 32 H ALT 29 25-OH Vitamin D Total 59.0 DEXA 05/2023 FINDINGS: LEFT FEMUR, NECK: Current: BMD 0.618 g/cm2, Z-score -1.2, T-score -3.0, osteoporosis. Prior: BMD 0.810 g/cm2. Baseline: BMD 0.971 g/cm2. LEFT FEMUR, TOTAL: Current: BMD 0.653 g/cm2, Z-score -1.2, T-score -2.8, osteoporosis, 24.1% decrease from previous, 35.9% decrease from baseline (<5% change is not significant). Prior: BMD 0.860 g/cm2. Baseline: BMD 1.019 g/cm2. AP SPINE L1-L4: Current: BMD 1.059 g/cm2, Z-score 0.9, T-score -1.0, normal, 0.2% decrease from previous, 15.2% decrease from baseline (<5% change is not significant). Prior: BMD 1.061 g/cm2. Baseline: BMD 1.249 g/cm2. Assessment & Plan Assessment & Plan (1) Osteoporosis of femur without pathological fracture: Comment: DEXA 04/2021: L-spine -1.0, Left femur neck -1.6, Left femur total -1.2 DEXA 05/2023: L-spine -1.0, Left femur neck -3.2, Left femur total -2.8 Alendronate 04/2019 -06/2023 Prolia 09/2023 Code(s): M81.0 - Age-related osteoporosis without current pathological fracture Category: Medical Plan: #Osteoporosis Patient is a 70-year-old female with osteoporosis here today for follow up. Patient is doing well. Vitamin-D at goal. Currently on calcium supplementation as well. Tolerating Prolia injections. We will repeat bone density in May 2025 Plan - Prolia 60mg SC every 6 months - DEXA 05/2025 - RTC 6 months - Labs before visit: CMP, vitamin-D (2) Encounter for monitoring denosumab therapy: Code(s): Z51.81 - Encounter for therapeutic drug level monitoring; Z79.899 - Other intermediate school teacher (current) drug therapy Plan: #Long-term use of Denosumab Discussed with patient the risks and benefits of denosumab (Prolia) for the management of their osteoporosis Benefits include improved bone density, decreased fracture risk Risks include rapid bone loss if denosumab stopped, osteonecrosis of the jaw especially in patients with poor oral hygiene/diabetes/use of glucocorticoids/age greater than 65 years, atypical femoral fractures, injection site reactions. Mild increased risk of infections due to RANKL on T helper cells, increased risk of hypocalcemia especially in CKD patients Keep vitamin-D at least 35 ng/mL Advised to delay non emergent dental procedures to toward the end of the 6 month cycle and if they plan to stop denosumab would need to continue antiresorptive to maintain the effects of denosumabe Plan I spent 25 minutes reviewing the record and labs, taking a history, examining the patient, discussing the treatment plan, ordering diagnostic work up and documenting in the medical record Orders: Orders Vitamin D 25-OH Total 6 Months Z79.899 - Other custodial (current) drug therapy Comprehensive Met. Panel 6 Months Z79.899 - Other custodial (current) drug therapy AMB Denosumab Injection Practice Supplied Today M81.0 - Age-related osteoporosis without current pathological fracture XR DEXA axial skeleton Today M81.0 - Age-related osteoporosis without current pathological fracture Coding Level of Care Code Est Pt Level 3 (79650) Complex EM visit Add On G2211 Diagnoses Osteoporosis of femur without pathological fracture M81.0 Encounter for monitoring denosumab therapy Z51.81; Z79.899
[2025-03-21 08:22] VITALS: BP 134/80; PULSE 64; O2SAT 99; BMI 26.2
== END 2025-03-21 08:44 | disposition home or self-care (01) ==
LOC: HO.RHES 08:10
PROVIDERS: Visit Provider Student in an Organized Health Care Education/Training Program
DX: M81.0 Age-related osteoporosis without current pathological fracture (principal); Z51.81 Encounter for therapeutic drug level monitoring; Z79.899 Other long term (current) drug therapy
CPT/HCPCS: 99213; G2211

== ENCOUNTER → 2025-03-21 08:09 | Outpatient (BNVA) | payer SELFPAY | PROVIDERS: Visit Provider Student in an Organized Health Care Education/Training Program | DX: M81.0 Age-related osteoporosis without current pathological fracture (principal); Z51.81 Encounter for therapeutic drug level monitoring; Z79.899 Other long term (current) drug therapy | CPT/HCPCS: 96372; 99212; J0897 ==

== ENCOUNTER 2025-03-28 08:25 | Outpatient (REF) | payer SELFPAY ==
--- OUTSIDE RECORDS SUMMARY | 2023-11-04 04:00 | XMS_ITS ---
Author Organization [facility] Address [address] [place] [phone] Care Team Providers Care Policy Writer Name Role Phone John SCHRADER, Jina Sawyer Primary Care Provider Un available Diana Merritt Unavailable [phone] Devine Encounters Encounter Location Date Provider Diagnosis [address] [address] 11/04/2023 Diana Merritt Plan Of Treatment Next Appt Details Provider Name:Diana mckeon, 03/29/2025 09:00:00 AM, [address] [place] [address], [phone], Progress Notes * Aida TURPINOB:1954 (70 yo F)Acc No.[id number]:11/04/2023 Progress Note Patient: Elda BARRAZA Aida Enriquez Provider: Harsha Merritt DPM :1955 A ge:68 Y S ex:Female Date:11/04/2023 Address: [address] [id number] Pcp:Rose Mary Motley Subjective: * Chief Complaints: * [address] Devine. * Medical History: Objective: * Vitals: Assessment: Plan: * Treatment: * Images: * The named appointment provid er may or may not be the originator of this progress note, and it is not deemed complete until electronically signed by the appointment provider. Sign off status: Pending * Provider: Harsha Merritt DPM Date: 0 11/04/2023 Generated for Shey Barahona on: 05/28/2024 09:02 AM EST
--- OUTSIDE RECORDS SUMMARY | 2024-06-29 04:15 | XMS_ITS ---
Author Organization [facility] Address [address] [place] [address] Care Team Providers Care Apparel Sales Associate Name Role Phone John SCHRADER, Jina Sawyer Primary Care Provider Un available Diana Merritt Unavailable [phone] Allergies Allergen (clinical drug ingredient) Drug/Non Drug [...] directed Orally Active Citrucel Active Saline Nasal [place] A ctive Calcium + Vitamin D3 Active [...] Not-Taking Encounters Encounter Location Date Provider Diagnosis [facility] [place] [address] [place] [address] 06/29/2024 Diana Merritt Plan Of Treatment Next Appt Details Provider Name:Diana mckeno, 03/29/2025 09:00:00 AM, [address] [place], [address], Progress Notes * Aida TURPINOB:1954 (70 yo F)Acc No.[id number]:06/29/2024 Progress Note Patient: Elda BARRAZAAida Provider: Harsha Merritt DPM :1955 A ge:69 Y S ex:Female Date:06/29/2024 Address: [address], [facility] Pcp:Rose Mary Motley Subjective: * Chief Complaints: [...] + Vitamin D3 , Taking Saline Nasal [place] , Taking Citrucel , Taking Vitamin C [...] 0 06/29/2024 Generated for Shey whitlock/Magalie/Godwinitting on: 05/28/2024 09:02 AM EST
--- OUTSIDE RECORDS SUMMARY | 2024-08-07 05:00 | XMS_ITS ---
Author Organization [facility] Address [address] [place] [address] Care Team Providers Care Motor Assembler Name Role Phone John SCHRADER, Jina Sawyer Primary Care Provider Un available Diana Merritt Unavailable [phone] REASON FOR VISIT for sooner apt Encounters Encounter Location Date Provider Diagnosis [address] [address] 08/07/2024 Diana Merritt Plan Of Treatment Next Appt Details Provider Name:Diana mckeon, 03/29/2025 09:00:00 AM, [address] [place] [address], [address], Progress Notes * Aida TURPINOB:1954 (70 yo F)Acc No.[id number]:08/07/2024 Progress Note Patient: Elda BARRAZA Aida Enriquez Provider: Harsha Merritt DPM :1955 A ge:69 Y S ex:Female Date:08/07/2024 Address: [address] [id number] Pcp:Rose Mary Motley Subjective: * Chief Complaints: * 1 . For sooner apt. * Medical History: Objective: * Vitals: Assessment: Plan: * Treatment: * Images: * The named appointment provid er may or may not be the originator of this progress note, and it is not deemed complete until electronically signed by the appointment provider. Sign off status: Pending * Provider: Harsha Merritt DPM Date: 0 08/07/2024 Generated for Shey Barahona on: 05/28/2024 09:03 AM EST
--- OUTSIDE RECORDS SUMMARY | 2025-03-28 09:03 | XMS_ITS | Patient Health Record ---
Author Organization [facility] Address [address] [place] [address] Care Team Providers Care Catalyst Unit Operator Name Role Phone John SCHRADER, Jina Primary Care Provider Devon Louise [phone] Allergies Allergen (clinical drug ingredient) Drug/Non Drug Allergy documented on EMR Reaction Allergy Type Onset Date Status penicillin G Penicillin G Sodium Unknown Drug Allergy Active Chocolate Natural & Artifical Unknown Drug Allergy Active Reason For Referral No Information Medications Medication SIG (Take, Route, Frequency, Duration) Notes Start Date End Date Status Folic Acid 400 MCG Tablet 1 tablet Orall y Once a day; Duration: 30 day(s) Active Alendronate Sodium 70 MG Tablet Oral; Duration: 90 Active Vitamin D 25 MCG (1000 UT) Tablet 1 tablet Orally Once a day; Duration: 30 day(s) Active Loratadine 10 MG Tablet 1 tablet Orally Once a day; Duration: 30 day(s) Active Glucosamine Sulfate Active Levothyroxine Sodium 75 MCG Tablet alternating with 50 mg Oral Active Simvastatin 10 MG Tablet TK 1 T PO QOD O ral; Duration: 90 Active Flonase Allergy Relief Active Citrucel Active Vitamin C 500 MG Capsule as directed Orally Active Calcium 600 MG Tablet 1 tablet with meal s Orally Twice a day; Duration: 30 day(s) Active Saline Nasal [place] 0.65 % Solution Nasally AM and Night Active Immunizations Vaccine Route Administration Date Status Comme nts Influenza Unknown 01/07/2019 Administered Social History Tobacco Use: Social History Observation Description Date Details (start date - stop date) Never Smoker NA - NA Social History Drugs/Alcohol: Social Info Question Answer Notes Alcohol Screen Did you have a drink containing alcohol in the past year? No Points 0 Interpretation Negative Tobacco Use: Social Info Question Answer Notes Tobacco Use/Smoking Patient is a nonsmoker Additional Details Category Social Info Options Details Miscellaneous: Marital status: single Occupation: retired 2017 Section Notes: Nonsmoker; no alcohol Problems Problem Type SNOMED Code ICD Code Onset Dates Problem Status W/U Status Risk Notes Problem Screening for malignant neoplasm of colon (386489263) Encounter for screening for malignant neoplasm of colon (Z12.11) Active confirmed Problem Preprocedural examination (290509546334686) Preprocedural examination (Z01.818) Active confirmed Plan Of Treatment Future Test Test Name Order Date COLONOSCOPY 12/06/2019 Insurance Providers Payer Name Payer Address Payer Phone Subscriber Number Group Number Insured Name Patient Relationship to Insured Coverage Start Date Coverage End Date [facility] [address] [place] [phone] [id number] ALMA ALEXANDER Self - patient is the insured Medical (General) History Medical History History ICD Code Asthma/allergy injections Denies [place],DM,CVA,renal disease Negative colonoscopy in 2006 Hypothyroidism Hyperlipidemia Osteoporosis Surgical History Surgery Date(Month/Year) Cholecystectomy Right wrist carpal tunnel Right wrist surgery
--- OUTSIDE RECORDS SUMMARY | 2025-03-28 09:03 | XMS_ITS | Patient Health Record ---
Author Organization [facility] Address [address] [place] [address] Care Team Providers Care Slag Dumper Name Role Phone John SCHRADER, Jina Sawyer Primary Care Provider Un available Diana Merritt Unavailable [phone] Allergies Allergen (clinical drug ingredient) Drug/Non Drug Allergy documented on EMR Reaction Allergy Type Onset Date Status Chocolate Flavor Unknown Drug Allergy Active Penicillin Unknown Drug Allergy Active Reason For Referral No Information Medications Medication SIG (Take, Route, Frequency, Duration) Notes Start Date End Date Status Citrucel Active Saline Nasal [place] A ctive Calcium + Vitamin D3 Active [...] Problem Acquired hammer toe of right foot (3328659319873312) Other hammer toe(s) (acquired), right foot (M20.41) Active confirmed Problem Acquired hammer toe of left foot (5745443627817530) Other hammer toe(s) (acquired), left foot (M20.42) Active confirmed Problem Plantar wart (41968501) Plantar wart (B07.0) Active confirmed Problem Bilateral atherosclerosis of arteries of lower limbs (disorder) (20316105918747873 ) Atherosclerosis of [place] artery of both lower extremities, with unspecified presence of clinical manifestation (I70.203) Active confirmed Vital Signs Blood pressure diastolic 60 mm Hg 01/04/2025 Height 4ft 11in in 01/04/2025 Blood pressure systolic 110 mm Hg 01/04/2025 Weight 126 lbs 01/04/2025 BMI 25.45 kg/m2 01/04/2025 Encounters Encounter Location Date Provider Diagnosis [facility] [address] 04/13/2024 Diana Perica Plantar wart B07.0 ; Tinea unguium B35.1 ; Atherosclerosis of [place] artery of both lower extremities, with unspecified presence of clinical manifestation I70.203 ; Pain in right toe(s) M79.674 ; Pain in left toe(s) M79.675 and Right foot pain M79.671 [facility] [address] 07/04/2024 Diana Perica Plantar wart B07.0 ; Tinea unguium B35.1 ; Atherosclerosis of [place] artery of both lower extremities, with unspecified presence of clinical manifestation I70.203 ; Pain in right toe(s) M79.674 ; Pain in left toe(s) M79.675 and Right foot pain M79.[address] [address] 09/28/2024 Diana Perica Plantar wart B07.0 ; Tinea unguium B35.1 ; Atherosclerosis of [place] artery of both lower extremities, with unspecified presence of clinical manifestation I70.203 ; Pain in right toe(s) M79.674 ; Pain in left toe(s) M79.675 and Right foot pain M79.[address] [address] 01/04/2025 Diana Perica Plantar wart B07.0 ; Tinea unguium B35.1 ; Atherosclerosis of [place] artery of both lower extremities, with unspecified [...] unguium (ICD-10 - B35.1) 09/28/2024 Atherosclerosis of [place] artery of both lower extremities, with unspecified presence of clinical manifestation (ICD-10 - I70.203) 01/04/2025 Atherosclerosis of [place] artery of both lower extremities, with unspecified presence of clinical manifestation (ICD-10 - I70.203) 04/13/2024 Atherosclerosis of [place] artery of both lower extremities, with unspecified presence of clinical manifestation (ICD-10 - I70.203) 07/04/2024 Tinea unguium (ICD-10 - B35.1) 04/13/2024 Tinea unguium (ICD-10 - B35.1) 04/13/2024 Pain in right toe(s) (ICD-10 - M79.674) 07/04/2024 Atherosclerosis of [place] artery of both lower extremities, with unspecified [...] Provider Name:Diana mckeon, 03/29/2025 09:00:00 AM, [address] [facility], [place], [address], Insurance Providers Payer Name Payer Address Payer Phone Subscriber Number Group Number Insured Name Patient Relationship to Insured Coverage Start Date Coverage End Date [employer] [place] Medicare Advantage [facility] [address] [place] [id number] Aida Turpin Self - patient is the insured Medical (General) History Medical History History ICD Code Arthritis Asthma Cataracts High Blood Pressure Osteoporosis Measels Surgical History Surgery Date(Month/Year) Cataracts 02/28/2016 cataract surgery 01/2024
== END 2025-03-28 08:26 | disposition home or self-care (01) ==
LOC: HO.HAP 08:25
PROVIDERS: Visit Provider Internal Medicine
DX: M81.0 Age-related osteoporosis without current pathological fracture (principal)
CPT/HCPCS: 92593

== ENCOUNTER 2025-04-08 08:51 | Outpatient (AMB) | payer MEDICARE, SELFPAY ==
--- OUTSIDE RECORDS SUMMARY | 2023-11-04 04:00 | XMS_ITS ---
Author Organization [facility] Address [address] [place] [phone] Care Team Providers Care Mechanical Engineering Intern Name Role Phone John SCHRADER, Jina Sawyer Primary Care Provider Un available Diana Merritt Unavailable [phone] Devine Encounters Encounter Location Date Provider Diagnosis [address] [address] 11/04/2023 Diana Merritt Plan Of Treatment Next Appt Details Provider Name:Diana mckeon, 06/28/2025 09:00:00 AM, [address] [place] [address], [phone], Progress Notes * Aida TURPINOB:1954 (70 yo F)Acc No.[id number]:11/04/2023 Progress Note Patient: Elda BARRAZA Aida Enriquez Provider: Harsha Merritt DPM :1955 A ge:68 Y S ex:Female Date:11/04/2023 Address: [address] [id number] Pcp:Rose Mary Motley Subjective: * Chief Complaints: [...] 0 11/04/2023 Generated for Shey Barahona on: 06/09/2024 09:54 AM EST
--- OUTSIDE RECORDS SUMMARY | 2024-06-29 04:15 | XMS_ITS ---
Author Organization [facility] Address [address] [place] [address] Care Team Providers Care Proof Technician Helper Name Role Phone John SCHRADER, Jina Sawyer Primary Care Provider Un available Diana Merritt Unavailable [phone] Allergies Allergen (clinical drug ingredient) Drug/Non Drug [...] directed Orally Active Citrucel Active Saline Nasal [place] A ctive Calcium + Vitamin D3 Active [...] Not-Taking Encounters Encounter Location Date Provider Diagnosis [facility] [place] [address] [place] [address] 06/29/2024 Diana Merritt Plan Of Treatment Next Appt Details Provider Name:Diana mckeon, 06/28/2025 09:00:00 AM, [address] [place], [address], Progress Notes * Aida TURPINOB:1954 (70 yo F)Acc No.[id number]:06/29/2024 Progress Note Patient: Elda BARRAZAAida Provider: Harsha Merritt DPM :1955 A ge:69 Y S ex:Female Date:06/29/2024 Address: [address], [id number] Pcp:Rose Mary Motley Subjective: * Chief Complaints: [...] + Vitamin D3 , Taking Saline Nasal [place] , Taking Citrucel , Taking Vitamin C [...] 0 06/29/2024 Generated for Shey whitlock/Magalie/Godwinitting on: 06/09/2024 09:53 AM EST
--- OUTSIDE RECORDS SUMMARY | 2025-04-08 09:55 | XMS_ITS | Patient Health Record ---
Author Organization [facility] Address [address] [place] [address] Care Team Providers Care Milk Processing Worker Name Role Phone John SCHRADER, Jina Primary Care Provider Devon Louise [phone] Allergies Allergen (clinical drug ingredient) Drug/Non Drug [...] day; Duration: 30 day(s) Active Saline Nasal [place] 0.65 % Solution Nasally AM and Night [...] Problem Screening for malignant neoplasm of colon (085804291) Encounter for screening for malignant neoplasm of colon (Z12.11) Active confirmed Problem Preprocedural examination (566670307109024) Preprocedural examination (Z01.818) Active confirmed Plan Of Treatment Future Test Test Name Order Date COLONOSCOPY 12/06/2019 Insurance Providers Payer Name Payer Address Payer Phone Subscriber Number Group Number Insured Name Patient Relationship to Insured Coverage Start Date Coverage End Date [facility] [address] [place] [phone] [id number] ALMA ALEXANDER Self - patient is the insured Medical (General) History Medical History History ICD Code Asthma/allergy injections Denies [place],DM,CVA,renal disease Negative colonoscopy in 2006 Hypothyroidism Hyperlipidemia Osteoporosis Surgical History Surgery Date(Month/Year) Cholecystectomy Right wrist carpal tunnel Right wrist surgery
== END 2025-04-08 08:52 | disposition home or self-care (01) ==
LOC: HO.HMGAL 08:51
PROVIDERS: PCP Internal Medicine; Visit Provider Registered Nurse Emergency
DX: J30.89 Other allergic rhinitis (principal)
CPT/HCPCS: 95117; 95165